=== PATIENT | female | born 1940 | race Caucasian/White ===

== ENCOUNTER 2018-03-21 18:10 | Inpatient (IN) | payer MEDICARE ==
--- NOTE | 2018-03-21 18:37 | ED ---
General Adult HPI - General Chief complaint: Nausea/Vomiting/Diarrhea Stated complaint: rapid heart rate Time Seen by Provider: 03/21/18 18:21 Source: patient Mode of arrival: wheelchair Limitations: no limitations - History of Present Illness Initial comments: Patient is a 77-year-old female presenting for abdominal pain and diarrhea. Daughter is bedside and states that for the last 10 days, she has had diarrhea as well as diffuse abdominal pain. However, the patient has become a little more confused and denies abdominal pain at this time. Patient also denies any fevers or chills but has had some coughing over the last 10 days. - Related Data Allergies Allergy/AdvReac Type Severity Reaction Status Date / Time Penicillins Allergy Nausea & Verified 03/21/18 18:18 Vomiting & Diarrhea Review of Systems ROS Statement: Those systems with pertinent positive or pertinent negative responses have been documented in the HPI. Constitutional: Negative for chills, and fever. Positive for fatigue HENT: Negative for congestion. Respiratory: Negative for chest tightness, shortness of breath and wheezing. Negative for cough Cardiovascular: Negative for chest pain and palpitations. Gastrointestinal: Positive for abdominal pain. Negative for abdominal distention , positive for diarrhea, nausea and vomiting. Genitourinary: Negative for dysuria. Musculoskeletal: Negative for back pain, neck pain and neck stiffness. Skin: Negative for color change. Neurological: Negative for dizziness, speech difficulty, weakness and light- headedness. Psychiatric/Behavioral: Negative for agitation and confusion. Negative for anxiety ROS Other: All systems not noted in ROS Statement are negative. Past Medical History Past Medical History: CVA/TIA, Renal Disease Additional Past Medical History / Comment(s): blind left eye, 1 kidney History of Any Multi-Drug Resistant Organisms: None Reported Past Surgical History: AICD, Back Surgery, Cholecystectomy, Pacemaker Past Psychological History: No Psychological Hx Reported Smoking Status: Current every day smoker Past Drug Use History: None Reported General Exam - General Exam Comments Initial Comments: Constitutional: Pt is oriented to person, place, and time. Pt appears well- developed and well-nourished. No distress. HENT: Head: Normocephalic and atraumatic. Eyes: EOM are normal. Neck: Normal range of motion. Neck supple. Cardiovascular: Tachycardia present, regular rhythm, S1 normal, S2 normal and normal heart sounds. Exam reveals no gallop and no friction rub. No murmur heard. Pulmonary/Chest: Effort normal and breath sounds normal. No tachypnea and no bradypnea. No respiratory distress. No wheezes or rales noted. Abdominal: Soft. Bowel sounds are normal. Pt exhibits no shifting dullness, no distension, no pulsatile liver, no fluid wave, no abdominal bruit and no ascites. There is no tenderness. There is no rigidity, no rebound, no guarding, no tenderness at McBurney's point and negative Russ's sign. Musculoskeletal: Normal range of motion. Neurological: Pt is alert and oriented to person, place, and time. No cranial nerve deficit. Skin: Skin is warm and dry. No rash noted. Pt is not diaphoretic. No erythema. No pallor. Psychiatric: Pt has a normal mood and affect. Pt behavior is normal. Thought content normal. Limitations: no limitations Course Vital Signs 03/21/18 03/21/18 03/21/18 18:14 18:27 18:30 Temperature 97.9 F Pulse Rate 130 H 118 H Respiratory 20 Rate Blood Pressure 97/65 84/60 84/60 O2 Sat by Pulse 91 L 90 L Oximetry 03/21/18 03/21/18 03/21/18 18:31 19:47 20:00 Temperature 97.6 F Pulse Rate 109 H 111 H Respiratory 20 20 Rate Blood Pressure 103/78 113/74 105/75 O2 Sat by Pulse 93 L 97 Oximetry 03/21/18 03/21/18 20:30 21:00 Temperature Pulse Rate 99 102 H Respiratory 19 20 Rate Blood Pressure 122/84 122/70 O2 Sat by Pulse 96 100 Oximetry EKG Findings - EKG Comments: EKG Findings:: EKG shows sinus tachycardia with a rate of 118, [place] interval 122, QRS duration 102, QTC 459. There are hyperacute T waves in leads V2 through V4. There is mild ST elevation in V1 and V2 but no reciprocal depressions which would indicate STEMI Medical Decision Making - Medical Decision Making Sepsis identified secondary to pneumonia. Upon arrival, 30 mL per KG bolus was initiated as well as blood cultures and lactic acid. Lactic acid was noted to not be elevated and measured at 1.8 but there was significant leukocytosis at 21.1. CT of the abdomen was also performed and showed no evidence of emergent pathology but did show renal cyst. Additionally, BUNs was elevated at 124 and creatinine was 2.47. This is unclear whether this is acute kidney injury as there are no prior records for this patient. Additionally, potassium was elevated at 5.8 with EKG changes, acute T waves, and therefore the patient was given calcium gluconate and insulin/D50. Because of the pneumonia, the patient was started on vancomycin and cefepime. Case is also discussed with nephrology on-call, , and course of treatment was agreed with. Explained all labs and diagnostic test results and that we will admit patient to hospital. Pt is agreeable to plan and case has been discussed with Dr. Gracia and they agree to accept the pt. - Lab Data Result diagrams: 03/21/18 18:45 03/21/18 18:45 Lab Results 03/21/18 03/21/18 03/21/18 Range/Units 18:45 18:45 18:45 WBC 21.1 H (3.8-10.6) k/uL RBC 3.27 L (3.80-5.40) m/uL Hgb 8.9 L (11.4-16.0) gm/dL Hct 29.7 L (34.0-46.0) % MCV 90.9 (80.0-100.0) fL MCH 27.4 (25.0-35.0) pg MCHC 30.1 L (31.0-37.0) g/dL RDW 17.5 H (11.5-15.5) % Plt Count 770 H (150-450) k/uL Neutrophils % 97 % Lymphocytes % 2 % Monocytes % 1 % Eosinophils % 0 % Basophils % 0 % Neutrophils # 20.4 H (1.3-7.7) k/uL Lymphocytes # 0.4 L (1.0-4.8) k/uL Monocytes # 0.2 (0-1.0) k/uL Eosinophils # 0.0 (0-0.7) k/uL Basophils # 0.0 (0-0.2) k/uL Hypochromasia Moderate Anisocytosis Slight PT (9.0-12.0) sec INR (<1.2) APTT (22.0-30.0) sec Sodium 134 L (137-145) mmol/L Potassium 5.8 H (3.5-5.1) mmol/L Chloride 97 L (98-107) mmol/L Carbon Dioxide 23 (22-30) mmol/L Anion Gap 14 mmol/L BUN 124 H* (7-17) mg/dL Creatinine 2.47 H (0.52-1.04) mg/dL Est GFR (CKD-EPI)AfAm 21 (>60 ml/min/1.73 sqM) Est GFR (CKD-EPI)NonAf 18 (>60 ml/min/1.73 sqM) Glucose 141 H (74-99) mg/dL Plasma Lactic Acid Jonatan 1.8 (0.7-2.0) mmol/L Calcium 10.2 (8.4-10.2) mg/dL Total Bilirubin 0.4 (0.2-1.3) mg/dL AST 18 (14-36) U/L ALT 22 (9-52) U/L Alkaline Phosphatase 116 (38-126) U/L Troponin I (0.000-0.034) ng/mL Total Protein 6.6 (6.3-8.2) g/dL Albumin 3.5 (3.5-5.0) g/dL Influenza Type A RNA (Not Detectd) Influenza Type B (PCR) (Not Detectd) 03/21/18 03/21/18 03/21/18 Range/Units 18:45 18:45 18:45 WBC (3.8-10.6) k/uL RBC (3.80-5.40) m/uL Hgb (11.4-16.0) gm/dL Hct (34.0-46.0) % MCV (80.0-100.0) fL MCH (25.0-35.0) pg MCHC (31.0-37.0) g/dL RDW (11.5-15.5) % Plt Count (150-450) k/uL Neutrophils % % Lymphocytes % % Monocytes % % Eosinophils % % Basophils % % Neutrophils # (1.3-7.7) k/uL Lymphocytes # (1.0-4.8) k/uL Monocytes # (0-1.0) k/uL Eosinophils # (0-0.7) k/uL Basophils # (0-0.2) k/uL Hypochromasia Anisocytosis PT 10.0 (9.0-12.0) sec INR 1.0 (<1.2) APTT 22.0 (22.0-30.0) sec Sodium (137-145) mmol/L Potassium (3.5-5.1) mmol/L Chloride (98-107) mmol/L Carbon Dioxide (22-30) mmol/L Anion Gap mmol/L BUN (7-17) mg/dL Creatinine (0.52-1.04) mg/dL Est GFR (CKD-EPI)AfAm (>60 ml/min/1.73 sqM) Est GFR (CKD-EPI)NonAf (>60 ml/min/1.73 sqM) Glucose (74-99) mg/dL Plasma Lactic Acid Jonatan (0.7-2.0) mmol/L Calcium (8.4-10.2) mg/dL Total Bilirubin (0.2-1.3) mg/dL AST (14-36) U/L ALT (9-52) U/L Alkaline Phosphatase (38-126) U/L Troponin I 0.026 (0.000-0.034) ng/mL Total Protein (6.3-8.2) g/dL Albumin (3.5-5.0) g/dL Influenza Type A RNA Not Detected (Not Detectd) Influenza Type B (PCR) Not Detected (Not Detectd) Disposition Clinical Impression: Sepsis, Pneumonia, Elevated BUN, Hyperkalemia Disposition: ADMITTED IP TO THIS [facility] Condition: Fair Referrals: Nonstaff,Physician [REFERRING] - 1-2 days Decision to Admit Reason: Admit from EC Decision Date: 03/21/18 Decision Time: 21:33
[2018-03-21] MEDS: SODIUM CHLORIDE 0.9% 1,000 ML IV SCH (18:49)
[2018-03-21] MEDS: SODIUM CHLORIDE 0.9% 500 ML 500 ML IV SCH ×2 (18:49→20:13)
[2018-03-21 19:26] LABS: Anisocytosis Slight; Basophils % (A) 0 %; Eosinophils % (A) 0 %; HCT 29.7 % (34.0-46.0); HGB 8.9 gm/dL (11.4-16.0); Hypochromasia Moderate; Lymphocytes # (A) 0.4 k/uL (1.0-4.8); Lymphocytes % (A) 2 %; MCH 27.4 pg (25.0-35.0); MCHC 30.1 g/dL (31.0-37.0); MCV 90.9 fL (80.0-100.0); Mean Platelet Volume 7.1; Monocytes # (A) 0.2 k/uL (0-1.0); Monocytes % (A) 1 %; Neutrophils # (A) 20.4 k/uL (1.3-7.7); Neutrophils % (A) 97 %; Platelet Count 770 k/uL (150-450); RBC 3.27 m/uL (3.80-5.40); RDW 17.5 % (11.5-15.5); WBC 21.1 k/uL (3.8-10.6)
--- NOTE | 2018-03-21 19:27 | CT ---
EXAMINATION TYPE: CT abdomen pelvis wo con DATE OF EXAM: 03/21/2018 COMPARISON: None HISTORY: Patient poor historian abdominal pain CT DLP: 233.8 mGycm Automated exposure control for dose reduction was used. TECHNIQUE: Helical acquisition of images was performed from the lung bases through the pelvis. FINDINGS: There is some patchy reticular nodular infiltrate in the lower lobes and more on the right side. Hear t size is normal. There is no pericardial effusion. Liver shows no focal defect. Spleen has normal size. There is no sign of a pancreatic mass. There is no adrenal mass. There are multiple bilateral renal cortical cysts that measure up to 2.5 cm. There i s no hydronephrosis. Abdominal aorta is atheromatous. I see no mesenteric adenopathy. Bladder distend s smoothly. There is no intestinal wall thickening. There are no dilated loops. There is no sign of a scites. Lumbar spine is intact. Bony pelvis appears intact. There is no inguinal hernia. There is hys terectomy. There is 1.7 cm rounded high density area on the anterior left kidney that is probably cys t that contains calcium. There is 2 mm calcification upper pole right kidney. Appendix is not seen. T here is no sign of appendicitis. There is no sign of free air. IMPRESSION: RENAL CYSTS. LESION ON THE ANTERIOR LEFT KIDNEY IS PROBABLY ATYPICAL CYST THAT CONTAINS CALCIUM. NONO BSTRUCTING SMALL RIGHT RENAL CALCULUS. ATHEROSCLEROTIC VASCULAR DISEASE. PATCHY NODULAR INFILTRATE IN THE LOWER LUNG FINN CONSISTENT WITH INFLAMMATORY DISEASE. NO PULMONARY MASS. RIGHT KIDNEY IS SMALL WITH SOME CORTICAL DEFORMITY THAT COULD RELATE TO CHRONIC PYELONEPHRITIS.
[2018-03-21 19:29] LABS: Albumin 3.5 g/dL (3.5-5.0); Calcium 10.2 mg/dL (8.4-10.2); Total Bilirubin 0.4 mg/dL (0.2-1.3); Total Protein 6.6 g/dL (6.3-8.2)
--- NOTE | 2018-03-21 19:31 | XR ---
EXAMINATION TYPE: XR chest 2V DATE OF EXAM: 03/21/2018 COMPARISON: NONE HISTORY: Increased heart rate TECHNIQUE: Frontal and lateral views of the chest are obtained. FINDINGS: There is no heart failure nor confluent pneumonic infiltrate. There is some interstitial i nfiltrate at the right lung base. Costophrenic angles are clear. There is pulmonary hyperinflation an d flattening of the diaphragm. There is left axillary pacemaker with the lead tips in the right ventr icle. There is no pleural effusion. There is osteopenia. IMPRESSION: Right lower lobe pulmonary interstitial infiltrate. No parenchymal consolidation or heart failure.
[2018-03-21] MEDS ORDERED: VANCOMYCIN IV PER PHARMACY 1 EACH MISC MISCELLANE PRN (19:34)
[2018-03-21 19:41] LABS: Potassium 5.8 mmol/L (3.5-5.1)
[2018-03-21] MEDS ORDERED: VANCOMYCIN 750 MG in SODIUM CHLORIDE 0.9% 250 ML IVPB STA (19:42)
[2018-03-21] MEDS: CEFEPIME 1 GM in SODIUM CHLORIDE 0.9% 50 ML IVPB SCH (20:14)
[2018-03-21] MEDS ORDERED: CALCIUM GLUCONATE 1,000 MG in SODIUM CHLORIDE 0.9% 100 ML IVPB ONE (20:50)
[2018-03-21] MEDS ORDERED: INSULIN REGULAR 100 UNIT/ML VIAL IV ONE (20:51)
[2018-03-21] MEDS ORDERED: DEXTROSE 50%-WATER 50 ML SYRINGE IVP STA (20:51)
[2018-03-21] MEDS ORDERED: ALBUTEROL NEBULIZED 2.5 MG/3 ML INHALATION PRN (21:27)
[2018-03-21] MEDS ORDERED: PNEUMONIA PROTOCOL UTILIZED 1 EACH MISC PO PRN (21:27)
[2018-03-21] MEDS ORDERED: SODIUM CHLORIDE 0.9% 500 ML 500 ML IV ONE (21:34)
[2018-03-21] MEDS ORDERED: LEVOFLOXACIN 500MG-D5W PMX 500 MG in DEXTROSE/WATER 1 100ML.BAG IVPB STA (21:38)
[2018-03-22 00:55] LABS: Appearance,Urine Clear (Clear); Bilirubin,Urine Negative (Negative); Blood,Urine Negative (Negative); Color,Urine Light Yellow; Glucose,Urine (UA) Trace (Negative); Ketones,Urine Negative (Negative); Leukocyte Esterase,Urine Negative (Negative); Nitrite,Urine Negative (Negative); Protein,Urine Negative (Negative); Specific Gravity,Urine 1.015 (1.001-1.035); Urobilinogen,Urine <2.0 mg/dL (<2.0)
[2018-03-22] MEDS: CARVEDILOL 12.5 MG TAB PO SCH ×3 (01:13→22:31)
[2018-03-22] MEDS: clonazePAM 0.5 MG TAB PO PRN ×2 (01:13→09:30)
[2018-03-22] MEDS: traMADol 50 MG TAB PO PRN (02:51)
[2018-03-22 06:43] LABS: Glucose,Whole Blood 106 mg/dL (75-99)
[2018-03-22] MEDS ORDERED: SERTRALINE 25 MG TAB PO SCH (09:00)
--- NOTE | 2018-03-22 09:24 | XR ---
EXAMINATION TYPE: XR chest 1V portable DATE OF EXAM: 03/22/2018 COMPARISON: Prior chest x-ray and chest CT 03/21/2018 HISTORY: Pneumonia TECHNIQUE: Single frontal view of the chest is obtained. FINDINGS: Patient is rotated. Defibrillator is present in the left pectoral region, there are leads in the right atrium, right ventricle, coronary sinus. Prominent lung volumes compatible with underlyi ng COPD. Cardiac mediastinal silhouette, pulmonary vascularity and edelmira are stable. No evident pneumo thorax or pleural effusion. There are overlying artifacts. Interstitium is mildly increased, persiste nt density right lung base, abnormal density left lung base may be obscured due to technique. IMPRESSION: Correlate for right lower lobe pneumonia. Follow-up recommended.
[2018-03-22] MEDS: CEFEPIME 1 GM in SODIUM CHLORIDE 0.9% 50 ML IVPB SCH (09:25)
[2018-03-22] MEDS: ASPIRIN 81 MG PO SCH (09:26)
[2018-03-22] MEDS: CLOPIDOGREL 75 MG TAB PO SCH (09:26)
[2018-03-22 11:32] LABS: Calcium 9.3 mg/dL (8.4-10.2); Potassium 5.2 mmol/L (3.5-5.1)
[2018-03-22] MEDS ORDERED: INFLUENZA VACCINE (6 MOS+) 60 MCG/0.5 ML SYRINGE IM ONE (13:53)
--- NOTE | 2018-03-22 14:53 | P.HPIM ---
History of Present Illness 77-year-old female presenting for abdominal pain and diarrhea. Daughter is bedside and states that for the last 10 days, she has had diarrhea as well as diffuse abdominal pain. However, the patient has become a little more confused and denies abdominal pain at this time. Patient also denies any fevers or chills but has had some coughing over the last 10 days, chest x-ray was done which is suspicious for right lower lobe infiltrate I reviewed the chest x-ray not impressive for right lower lobe infiltrate with the patient is on cefepime which will be continued for now patient does have leukocytosis tachycardia acute renal failure with the creatinine going up to 2.5 now around 1.8 with IV fluids. Which will be continued. I do not believe patient will need vancomycin that will be discontinued. Cultures were obtained. Patient has leukocytosis of 20,000 tachycardia improved. Patient denied any significant abdominal pain Review of Systems REVIEW OF SYSTEMS: CONSTITUTIONAL: No fever, no malaise, no fatigue. HEENT: No recent visual problems or hearing problems. Denied any sore throat. CARDIOVASCULAR: No chest pain, orthopnea, PND, no palpitations, no syncope. PULMONARY: No shortness of breath, no cough, no hemoptysis. GASTROINTESTINAL: As mentioned in HPI NEUROLOGICAL: No headaches, no weakness, no numbness. HEMATOLOGICAL: Denies any bleeding or petechiae. GENITOURINARY: Denies any burning micturition, frequency, or urgency. MUSCULOSKELETAL/RHEUMATOLOGICAL: Denies any joint pain, swelling, or any muscle pain. ENDOCRINE: Denies any polyuria or polydipsia. The rest of the 14-point review of systems is negative. Past Medical History Past Medical History: CVA/TIA, Eye Disorder, Hearing Disorder / Deafness, Hyperlipidemia, Hypertension, Osteoarthritis (OA), Renal Disease Additional Past Medical History / Comment(s): CVA with blindness left eye, Pt states she has renal disease-L kidney is nonfunctioning and R kidney functions at about 80% and has been stented/ sees reexaminer every 6 months, irregular heart beat, "bottom of my heart doesn't work well"-pt has AICD/pacer, gout bilateral feet, arthritis bilateral hands and legs, COUNCIL bilaterally, weight loss of about 15 pounds recently. History of Any Multi-Drug Resistant Organisms: None Reported Past Surgical History: AICD, Appendectomy, Back Surgery, Cholecystectomy, Heart Catheterization, Pacemaker Additional Past Surgical History / Comment(s): AICD/pacer, low back surgery, R kidney stented, colonoscopies/benign polypectomy, R eye cataract laser surgery, Past Anesthesia/Blood Transfusion Reactions: No Reported Reaction Additional Past Anesthesia/Blood Transfusion Reaction / Comment(s): Pt states she has received blood before without reaction. Type of Cardiac Device: Permanent Pacemaker, AICD Device Placement Date:: 2015 Smoking Status: Current every day smoker - Past Family History Father History Unknown: Yes Mother Family Medical History: Cancer Additional Family Medical History / Comment(s): Mother had colon cancer. Sghe at the age of 82 yrs. Medications and Allergies Home Medications Medication Instructions Recorded Confirmed Type Aspirin [Adult Low Dose Aspirin EC] 81 mg PO DAILY 03/21/18 03/22/18 History Carvedilol [Coreg] 25 mg PO BID 03/21/18 03/22/18 History Clopidogrel [Plavix] 75 mg PO DAILY 03/21/18 03/22/18 History Sertraline [Zoloft] 25 mg PO DAILY 03/21/18 03/22/18 History Simvastatin 40 mg PO HS 03/21/18 03/22/18 History clonazePAM [KlonoPIN] 0.5 mg PO Q8H PRN 03/21/18 03/22/18 History traMADol HCl [Ultram] 50 mg PO Q6HR PRN 03/21/18 03/22/18 History Allopurinol [Zyloprim] 100 mg PO DAILY 03/22/18 03/22/18 History Spironolactone-Hctz 25-25Mg 1 tab PO DAILY 03/22/18 03/22/18 History [Aldactazide 25-25Mg] predniSONE 20 mg PO DAILY 03/22/18 03/22/18 History Allergies Allergy/AdvReac Type Severity Reaction Status Date / Time Penicillins Allergy Nausea & Verified 03/22/18 09:38 Vomiting & Diarrhea Physical Exam Vitals: Vital Signs Temp Pulse Pulse Resp BP BP Pulse Ox 03/22/18 13:00 85 24 98/67 90 L 03/22/18 12:00 97.5 F L 80 40 H 135/78 95 03/22/18 11:00 81 21 111/68 90 L 03/22/18 10:00 84 20 111/68 96 03/22/18 09:00 98.1 F 74 21 111/68 88 L 03/22/18 06:49 97.7 F 92 19 111/68 99 03/22/18 06:00 97.8 F 93 18 100/61 93 L 03/22/18 05:00 87 16 109/68 94 L 03/22/18 04:30 96 18 107/61 97 03/22/18 04:00 97.8 F 87 18 96/69 97 03/22/18 02:30 98 19 105/60 97 03/22/18 02:00 97.8 F 106 H 18 105/60 97 03/22/18 01:30 114 H 18 97 03/22/18 01:00 114 H 18 109/70 95 03/22/18 00:30 114 H 103/67 98 03/22/18 00:00 120 H 18 112/64 98 03/21/18 23:30 114 H 20 124/71 95 03/21/18 23:00 97.8 F 113 H 18 108/76 100 03/21/18 22:30 108 H 20 102/70 03/21/18 22:00 130 H 19 156/91 95 03/21/18 21:30 135 H 20 131/82 96 03/21/18 21:00 102 H 20 122/70 100 03/21/18 20:30 99 19 122/84 96 03/21/18 20:00 111 H 20 105/75 97 03/21/18 19:47 97.6 F 109 H 20 113/74 93 L 03/21/18 18:31 103/78 03/21/18 18:30 118 H 84/60 03/21/18 18:27 84/60 90 L 03/21/18 18:14 97.9 F 130 H 20 97/65 91 L Intake and Output 03/21/18 03/22/18 03/22/18 22:59 06:59 14:59 Intake Total 75 Balance 75 Intake: IV 75 Sodium Chloride 0.9% 1, 75 000 ml @ 75 mls/hr IV . [id number] [facility] Rx#:[id number] Other: Weight 37.195 kg 39.2 kg 39.2 kg PHYSICAL EXAMINATION: GENERAL: The patient is alert and oriented x3, not in any acute distress. Well developed, well nourished. HEENT: Pupils are round and equally reacting to light. EOMI. No scleral icterus. No conjunctival pallor. Normocephalic, atraumatic. No pharyngeal erythema. No thyromegaly. CARDIOVASCULAR: S1 and S2 present. No murmurs, rubs, or gallops. PULMONARY: Chest is clear to auscultation, no wheezing or crackles. ABDOMEN: Soft, nontender, nondistended, normoactive bowel sounds. No palpable organomegaly. MUSCULOSKELETAL: No joint swelling or deformity. EXTREMITIES: No cyanosis, clubbing, or pedal edema. NEUROLOGICAL: Gross neurological examination did not reveal any focal deficits. SKIN: No rashes. Results CBC & Chem 7: 03/21/18 18:45 03/22/18 10:30 Labs: Abnormal Lab Results - Last 24 Hours (Table) 03/21/18 03/21/18 03/22/18 Range/Units 18:45 18:45 00:39 WBC 21.1 H (3.8-10.6) k/uL RBC 3.27 L (3.80-5.40) m/uL Hgb 8.9 L (11.4-16.0) gm/dL Hct 29.7 L (34.0-46.0) % MCHC 30.1 L (31.0-37.0) g/dL RDW 17.5 H (11.5-15.5) % Plt Count 770 H (150-450) k/uL Neutrophils # 20.4 H (1.3-7.7) k/uL Lymphocytes # 0.4 L (1.0-4.8) k/uL Sodium 134 L (137-145) mmol/L Potassium 5.8 H (3.5-5.1) mmol/L Chloride 97 L (98-107) mmol/L BUN 124 H* (7-17) mg/dL Creatinine 2.47 H (0.52-1.04) mg/dL Glucose 141 H (74-99) mg/dL POC Glucose (mg/dL) (75-99) mg/dL Urine Glucose (UA) Trace H (Negative) 03/22/18 03/22/18 Range/Units 06:31 10:30 WBC (3.8-10.6) k/uL RBC (3.80-5.40) m/uL Hgb (11.4-16.0) gm/dL Hct (34.0-46.0) % MCHC (31.0-37.0) g/dL RDW (11.5-15.5) % Plt Count (150-450) k/uL Neutrophils # (1.3-7.7) k/uL Lymphocytes # (1.0-4.8) k/uL Sodium (137-145) mmol/L Potassium 5.2 H (3.5-5.1) mmol/L Chloride 109 H (98-107) mmol/L BUN 92 H (7-17) mg/dL Creatinine 1.68 H (0.52-1.04) mg/dL Glucose 103 H (74-99) mg/dL POC Glucose (mg/dL) 106 H (75-99) mg/dL Urine Glucose (UA) (Negative) Microbiology - Last 24 Hours (Table) 03/22/18 00:39 Urine Culture - Preliminary Urine,Voided Thrombosis Risk Factor Assmnt - Choose All That Apply Any of the Below Risk Factors Present?: Yes Each Factor Represents 1 point: Sepsis (< 1month), Serious lung disease incl. pneumonia (< 1month) Other Risk Factors: Yes Each Risk Factor Represents 3 Points: Age 75 years or older Other congenital or acquired thrombophilia - If yes, enter type in comment: No Thrombosis Risk Factor Assessment Total Risk Factor Score: 5 Thrombosis Risk Factor Assessment Level: High Risk Assessment and Plan Plan: -Systemic inflammatory response syndrome or sepsis: Probably secondary to viral gastroenteritis mostly will obtain C. diff testing patient had 2 episodes of diarrhea today. My suspicion is low for pneumonia for now we will can you with antibiotics. Continue with IV fluids -Acute renal failure prerenal azotemia and possibility of acute tubular necrosis nonoliguric from sepsis, intravascularly depletion continue with IV fluids -Leukocytosis due to assessment #1 -Hyperkalemia: Secondary to acute renal failure, Aldactone and hydrochlorothiazide is being held -Hyponatremia hypervolemic hyponatremia expected to improve with IV fluids -Hyperlipidemia -Hypertension
[2018-03-22] MEDS ORDERED: VANCOMYCIN 750 MG in SODIUM CHLORIDE 0.9% 250 ML IVPB ONE (16:00)
[2018-03-22] MEDS: SODIUM CHLORIDE 0.9% 1,000 ML IV SCH ×2 (16:05→22:31)
--- NOTE | 2018-03-22 18:03 | CONS ---
CONSULTATION REASON FOR CONSULT: Renal failure. HISTORY OF PRESENT ILLNESS: Patient is a 77-year-old female who has a history of chronic kidney disease and follows with a carpenter supervisor out of [place]. She is not sure as to her baseline renal function. Patient was admitted to the hospital with complaints of nausea, vomiting and diarrhea. This had been going on for about one week prior to his admission. Patient also had abdominal pain. She had some mental status changes as well. Currently patient states she is feeling better. She is not having that much diarrhea. She is also maintained on IV fluids. Serum creatinine was 2.47 mg/dL on admission. It is now down to 1.68. Serum potassium was 5.8 and is now at 5.2 mEq/L. At home patient was not on any NSAIDs or angiotensin receptor blockers. She was, however, on spironolactone. PAST MEDICAL HISTORY: Significant for chronic kidney disease with solitary functioning kidney, history of CVA/TIA. PAST SURGICAL HISTORY: 1. AICD placement. 2. Back surgery. 3. Cholecystectomy. SOCIAL HISTORY: Positive for smoking. No history of drug abuse or alcohol abuse. MEDICATIONS: Medications prior to admission included: 1. Ultram. 2. Prednisone. 3. Klonopin. 4. Aldactazide. 5. Simvastatin. 6. Zoloft. 7. Plavix. 8. Coreg. 9. Zyloprim. 10.Aspirin. REVIEW OF SYSTEMS: As per HPI. Other systems negative. PHYSICAL EXAMINATION: Patient is comfortable. Blood pressure 135/78, heart rate 80 per minute. She is afebrile. EXAMINATION OF THE HEART: S1, S2. EXAMINATION OF LUNGS: Bilateral breath sounds are heard. ABDOMEN: Soft, non-tender. Examination of lower extremities shows no significant edema. 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 Labs show sodium 139, potassium 5.2, chloride 109, BUN 92, serum creatinine 1.68, hemoglobin 8.9 g/dL. UA is fairly benign with no evidence of proteinuria or hematuria. ASSESSMENT: 1. Acute kidney injury, prerenal, currently improving with IV hydration. Continue with IV fluids. 2. Hyperkalemia associated with acute kidney injury and use of Aldactone prior to admission, currently improved. 3. Nausea, vomiting, diarrhea; seem to be improving, most likely related to gastroenteritis. 4. History of hypertension, currently controlled. 5. Chronic kidney disease, possibly stage III; baseline creatinine not known. Etiology is nephrosclerosis with a solitary functioning kidney. CT scan also shows a high density area on the left kidney that looks like an atypical cyst. The CT scan does state that the patient's right kidney is small. The size is not mentioned. PLAN: Continue with IV fluids. Maintain followup with Nephrology as outpatient. Hold off on Aldactone for now. Repeat labs in a.m. Check for Clostridium difficile if patient continues to have diarrhea. Thank you for this consultation. Will continue to follow the patient with you during her hospitalization. I would also avoid continued dosing of vancomycin, given her renal failure. MMODL / IJN: [id number] /
[2018-03-22] MEDS: SYMBICORT 160-4.5 MCG INHALER INHALATION SCH (19:18)
[2018-03-22] MEDS: DOXYCYCLINE 100 MG CAP PO SCH (22:31)
[2018-03-22] MEDS: ATORVASTATIN 20 MG TAB PO SCH (22:31)
[2018-03-23] MEDS: traMADol 50 MG TAB PO PRN ×3 (00:32→17:57)
[2018-03-23 06:34] LABS: Anisocytosis Slight; Basophils % (A) 0 %; Eosinophils # (A) 0.2 k/uL (0-0.7); Eosinophils % (A) 1 %; HGB 7.5 gm/dL (11.4-16.0); Hypochromasia Marked; Lymphocytes # (A) 0.5 k/uL (1.0-4.8); Lymphocytes % (A) 5 %; MCH 27.7 pg (25.0-35.0); MCV 95.4 fL (80.0-100.0); Mean Platelet Volume 7.4; Monocytes # (A) 0.5 k/uL (0-1.0); Monocytes % (A) 4 %; Neutrophils # (A) 10.5 k/uL (1.3-7.7); Neutrophils % (A) 89 %; Platelet Count 587 k/uL (150-450); RBC 2.72 m/uL (3.80-5.40); RDW 17.2 % (11.5-15.5); WBC 11.9 k/uL (3.8-10.6)
[2018-03-23 06:43] LABS: Calcium 9.1 mg/dL (8.4-10.2); Magnesium 1.6 mg/dL (1.6-2.3); Potassium 5.1 mmol/L (3.5-5.1)
[2018-03-23 06:49] LABS: Vancomycin,Random 13.6 ug/mL
[2018-03-23] MEDS: SYMBICORT 160-4.5 MCG INHALER INHALATION SCH ×2 (07:50→20:29)
[2018-03-23] MEDS: CEFEPIME 1 GM in SODIUM CHLORIDE 0.9% 50 ML IVPB SCH (08:38)
[2018-03-23] MEDS: CARVEDILOL 12.5 MG TAB PO SCH ×2 (08:40→20:26)
[2018-03-23] MEDS: CLOPIDOGREL 75 MG TAB PO SCH (08:41)
[2018-03-23] MEDS: ASPIRIN 81 MG PO SCH (08:42)
[2018-03-23] MEDS: DOXYCYCLINE 100 MG CAP PO SCH ×2 (08:55→20:26)
[2018-03-23] MEDS: ALLOPURINOL 100 MG TAB PO SCH (09:21)
[2018-03-23] MEDS: SERTRALINE 25 MG TAB PO SCH (09:21)
[2018-03-23] MEDS: SODIUM CHLORIDE 0.9% 1,000 ML IV SCH (10:26)
--- NOTE | 2018-03-23 12:21 | P.PN ---
Subjective Patient is seen in follow-up for acute kidney injury on chronic kidney disease. Renal function is improving with creatinine down to 1.25 today. Patient follows with health care facility administrator out of [facility]. 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 She is noted to have atrophic right kidney. Diarrhea has improved. Continues to have a cough. Denies chest pain or shortness of breath. Vital signs are stable. General: The patient appeared well nourished and normally developed. HEENT: Head exam is unremarkable. Neck is without jugular venous distension. LUNGS: Lungs are clear to auscultation and percussion. Breath sounds decreased. HEART: Rate and Rhythm are regular. First and second heart sounds normal. No murmurs, rubs or gallops. ABDOMEN: Abdominal exam reveals normal bowel sounds. Non-tender and non- distended. No evidence of peritonitis. EXTREMITITES: No clubbing, cyanosis, or edema. Objective - Vital Signs Vital signs: Vital Signs Temp 98.2 F 03/23/18 10:00 Pulse 105 H 03/23/18 10:00 Resp 20 03/23/18 10:00 BP 100/56 03/23/18 10:00 Pulse Ox 93 L 03/23/18 10:00 Intake & Output 03/22/18 03/23/18 03/23/18 18:59 06:59 18:59 Intake Total 300 07 2814 Output Total 700 250 0 Balance -100 -175 1000 Weight 39.2 kg 41.9 kg Intake: IV 600 75 600 Sodium Chloride 0.9% 1, 600 75 600 000 ml @ 75 mls/hr IV . [id number] [facility] Rx#:[id number] Oral 400 Output: Urine 700 250 0 - Labs CBC & Chem 7: 03/23/18 05:59 03/23/18 05:59 Labs: Abnormal Lab Results - Last 24 Hours (Table) 03/23/18 03/23/18 Range/Units 05:59 05:59 WBC 11.9 H (3.8-10.6) k/uL RBC 2.72 L (3.80-5.40) m/uL Hgb 7.5 L (11.4-16.0) gm/dL Hct 26.0 L (34.0-46.0) % MCHC 29.0 L (31.0-37.0) g/dL RDW 17.2 H (11.5-15.5) % Plt Count 587 H (150-450) k/uL Neutrophils # 10.5 H (1.3-7.7) k/uL Lymphocytes # 0.5 L (1.0-4.8) k/uL Chloride 111 H (98-107) mmol/L BUN 59 H (7-17) mg/dL Creatinine 1.25 H (0.52-1.04) mg/dL Microbiology - Last 24 Hours (Table) 03/21/18 20:27 Blood Culture - Preliminary Blood No Growth after 24 hours 03/21/18 18:45 Blood Culture - Preliminary Blood No Growth after 24 hours 03/22/18 00:39 Urine Culture - Preliminary Urine,Voided Assessment and Plan Plan: Assessment: 1. Nonoliguric acute kidney injury mostly prerenal secondary to intravascular volume depletion from diarrhea. Improving. Creatinine down to 1.25 today. 2. Hyperkalemia secondary to acute kidney injury and Aldactone. Improved. 3. Chronic kidney disease stage III secondary to solitary functioning left kidney. Unknown baseline creatinine. Patient follows with health care facility administrator out of [place]. 4. Nausea and vomiting along with diarrhea likely related to viral gastroenteritis. Improved. 5. Atypical cyst noted on the left kidney. This will need to be monitored as an outpatient. 6. Hypertension with chronic kidney disease. Controlled. 7. Pneumonia maintained on antibiotics. 8. Anemia of chronic kidney disease. Rule out iron deficiency. Plan: Continue normal saline at 75 mL an hour. Avoid nephrotoxins. Continue to hold diuretics for now. Check iron studies. Add Aranesp.
[2018-03-23] MEDS: IPRATROPIUM-ALBUTEROL 3 ML NEB INHALATION PRN (12:40)
[2018-03-23] MEDS: DARBEPOETIN ALFA 40 MCG/0.4 ML SYRINGE SQ SCH (14:16)
--- NOTE | 2018-03-23 15:37 | P.PN ---
Subjective Patient is being treated for gastroenteritis mostly the possibility of right lower lobe pneumonia for which patient is on cefepime. Patient acute renal failure is improving continue with IV fluids. Constitutional: Denied any fatigue denied any fever. Cardio vascular: denied any chest pain, palpitations Gastrointestinal denied any nausea vomiting Pulmonary: Denied any shortness of breath cough Neurologic denied any new focal deficits Objective - Vital Signs Vital signs: Vital Signs Temp 98.3 F 03/23/18 13:00 Pulse 108 H 03/23/18 14:00 Resp 20 03/23/18 14:00 BP 119/62 03/23/18 14:00 Pulse Ox 93 L 03/23/18 14:00 Intake & Output 03/22/18 03/23/18 03/23/18 18:59 06:59 18:59 Intake Total 107 82 0309 Output Total 700 250 0 Balance -100 -175 1240 Weight 39.2 kg 41.9 kg Intake: IV 600 75 600 Sodium Chloride 0.9% 1, 600 75 600 000 ml @ 75 mls/hr IV . [id number] [facility] Rx#:[id number] Oral 640 Output: Urine 700 250 0 - Exam PHYSICAL EXAMINATION: GENERAL: The patient is alert and oriented x3, not in any acute distress. Well developed, well nourished. HEENT: Pupils are round and equally reacting to light. EOMI. No scleral icterus. No conjunctival pallor. Normocephalic, atraumatic. No pharyngeal erythema. No thyromegaly. CARDIOVASCULAR: S1 and S2 present. No murmurs, rubs, or gallops. PULMONARY: Chest is clear to auscultation, no wheezing or crackles. ABDOMEN: Soft, nontender, nondistended, normoactive bowel sounds. No palpable organomegaly. MUSCULOSKELETAL: No joint swelling or deformity. EXTREMITIES: No cyanosis, clubbing, or pedal edema. NEUROLOGICAL: Gross neurological examination did not reveal any focal deficits. SKIN: No rashes. - Labs CBC & Chem 7: 03/23/18 05:59 03/23/18 05:59 Labs: Abnormal Lab Results - Last 24 Hours (Table) 03/23/18 03/23/18 Range/Units 05:59 05:59 WBC 11.9 H (3.8-10.6) k/uL RBC 2.72 L (3.80-5.40) m/uL Hgb 7.5 L (11.4-16.0) gm/dL Hct 26.0 L (34.0-46.0) % MCHC 29.0 L (31.0-37.0) g/dL RDW 17.2 H (11.5-15.5) % Plt Count 587 H (150-450) k/uL Neutrophils # 10.5 H (1.3-7.7) k/uL Lymphocytes # 0.5 L (1.0-4.8) k/uL Chloride 111 H (98-107) mmol/L BUN 59 H (7-17) mg/dL Creatinine 1.25 H (0.52-1.04) mg/dL Microbiology - Last 24 Hours (Table) 03/22/18 00:39 Urine Culture - Final Urine,Voided 03/21/18 20:27 Blood Culture - Preliminary Blood No Growth after 24 hours 03/21/18 18:45 Blood Culture - Preliminary Blood No Growth after 24 hours Assessment and Plan Plan: -Systemic inflammatory response syndrome or sepsis: Probably secondary to viral gastroenteritis mostly C. diff negative diarrhea resolved My suspicion is low for pneumonia for now we will can you with antibiotics. Continue with IV fluids -Acute renal failure prerenal azotemia and possibility of acute tubular necrosis nonoliguric from sepsis, intravascularly depletion continue with IV fluids Acute renal failure is improving at this time -Leukocytosis due to assessment #1 -Hyperkalemia: Secondary to acute renal failure, Aldactone and hydrochlorothiazide is being held -Hyponatremia hypervolemic hyponatremia expected to improve with IV fluids -Hyperlipidemia -Hypertension
[2018-03-23 19:17] LABS: Iron Saturation 3.32 (12.00-45.00)
[2018-03-23] MEDS: ATORVASTATIN 20 MG TAB PO SCH (20:26)
[2018-03-24] MEDS: SODIUM CHLORIDE 0.9% 1,000 ML IV SCH ×2 (00:06→17:53)
[2018-03-24] MEDS: traMADol 50 MG TAB PO PRN ×3 (00:06→17:52)
[2018-03-24 06:47] LABS: Calcium 8.5 mg/dL (8.4-10.2); Magnesium 1.2 mg/dL (1.6-2.3); Potassium 4.6 mmol/L (3.5-5.1)
[2018-03-24] MEDS ORDERED: Magnesium Replacement Protocol 1 EACH MISC MISCELLANE PRN (06:50)
[2018-03-24 06:59] LABS: Anisocytosis Slight; HCT 22.2 % (34.0-46.0); Hypochromasia Marked; MCHC 29.1 g/dL (31.0-37.0); MCV 95.9 fL (80.0-100.0); Macrocytosis Slight; Mean Platelet Volume 7.1; Platelet Count 519 k/uL (150-450); RBC 2.32 m/uL (3.80-5.40); RDW 17.4 % (11.5-15.5); WBC 12.2 k/uL (3.8-10.6)
[2018-03-24 07:16] LABS: HGB 6.5 gm/dL (11.4-16.0)
[2018-03-24 08:25] LABS: Anisocytosis Slight; HCT 24.2 % (34.0-46.0); Hypochromasia Marked; MCH 27.9 pg (25.0-35.0); MCHC 29.2 g/dL (31.0-37.0); MCV 95.7 fL (80.0-100.0); Macrocytosis Slight; Mean Platelet Volume 7.1; Platelet Count 519 k/uL (150-450); RBC 2.53 m/uL (3.80-5.40); RDW 17.3 % (11.5-15.5); WBC 13.4 k/uL (3.8-10.6)
[2018-03-24] MEDS: MAGNESIUM SULFATE-D5W PMX 1 GM in DEXTROSE/WATER 1 100ML.BAG IVPB SCH ×3 (08:27→10:57)
[2018-03-24] MEDS: ASPIRIN 81 MG PO SCH (08:28)
[2018-03-24] MEDS: CLOPIDOGREL 75 MG TAB PO SCH (08:28)
[2018-03-24] MEDS: CARVEDILOL 12.5 MG TAB PO SCH ×2 (08:28→20:32)
[2018-03-24] MEDS: ALLOPURINOL 100 MG TAB PO SCH (08:28)
[2018-03-24] MEDS: CEFEPIME 1 GM in SODIUM CHLORIDE 0.9% 50 ML IVPB SCH (09:07)
--- NOTE | 2018-03-24 10:11 | P.PN ---
Subjective Patient is seen in follow-up for acute kidney injury on chronic kidney disease. Renal function is improving with creatinine down to 0.94 today. Patient follows with engineer automated equipment out of [facility]. 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 She is noted to have atrophic right kidney. Diarrhea has improved. Continues to have a cough. Denies chest pain or shortness of breath. Hemoglobin was 6.5 this morning at 5 AM and repeat was 7.0 at 8 AM. Patient denies any active bleeding. Vital signs are stable. General: The patient appeared well nourished and normally developed. HEENT: Head exam is unremarkable. Neck is without jugular venous distension. LUNGS: Lungs are clear to auscultation and percussion. Breath sounds decreased. HEART: Rate and Rhythm are regular. First and second heart sounds normal. No murmurs, rubs or gallops. ABDOMEN: Abdominal exam reveals normal bowel sounds. Non-tender and non- distended. No evidence of peritonitis. EXTREMITITES: No clubbing, cyanosis, or edema. Objective - Vital Signs Vital signs: Vital Signs Temp 98.1 F 03/24/18 08:00 Pulse 113 H 03/24/18 08:00 Resp 21 03/24/18 08:00 BP 111/76 03/24/18 08:00 Pulse Ox 90 L 03/24/18 08:00 Intake & Output 03/23/18 03/24/18 03/24/18 18:59 06:59 18:59 Intake Total 1840 75 275 Output Total 1780 250 Balance 60 75 25 Weight 43.3 kg 43.3 kg Intake: IV 1200 75 75 Sodium Chloride 0.9% 1, 1200 75 75 000 ml @ 75 mls/hr IV . [id number] [facility] Rx#:[id number] Oral 640 200 Output: Urine 1780 250 Other: Voiding Method Toilet # Voids 1 - Labs CBC & Chem 7: 03/24/18 07:59 03/24/18 05:20 Labs: Abnormal Lab Results - Last 24 Hours (Table) 03/23/18 03/24/18 03/24/18 Range/Units 05:59 05:20 05:20 WBC 12.2 H (3.8-10.6) k/uL RBC 2.32 L (3.80-5.40) m/uL Hgb 6.5 L* (11.4-16.0) gm/dL Hct 22.2 L (34.0-46.0) % MCHC 29.1 L (31.0-37.0) g/dL RDW 17.4 H (11.5-15.5) % Plt Count 519 H (150-450) k/uL Chloride 110 H (98-107) mmol/L BUN 31 H (7-17) mg/dL Magnesium 1.2 L (1.6-2.3) mg/dL Iron 10 L (50-170) ug/dL Iron Saturation 3.32 L (12.00-45.00) 03/24/18 Range/Units 07:59 WBC 13.4 H (3.8-10.6) k/uL RBC 2.53 L (3.80-5.40) m/uL Hgb 7.0 L (11.4-16.0) gm/dL Hct 24.2 L (34.0-46.0) % MCHC 29.2 L (31.0-37.0) g/dL RDW 17.3 H (11.5-15.5) % Plt Count 519 H (150-450) k/uL Chloride (98-107) mmol/L BUN (7-17) mg/dL Magnesium (1.6-2.3) mg/dL Iron (50-170) ug/dL Iron Saturation (12.00-45.00) Microbiology - Last 24 Hours (Table) 03/21/18 20:27 Blood Culture - Preliminary Blood No Growth after 48 hours 03/21/18 18:45 Blood Culture - Preliminary Blood No Growth after 48 hours 03/22/18 00:39 Urine Culture - Final Urine,Voided Assessment and Plan Plan: Assessment: 1. Nonoliguric acute kidney injury mostly prerenal secondary to intravascular volume depletion from diarrhea. Improving. Creatinine down to 0.94 today. 2. Hyperkalemia secondary to acute kidney injury and Aldactone. Improved. 3. Chronic kidney disease stage III secondary to solitary functioning left kidney. Unknown baseline creatinine. Patient follows with engineer automated equipment out of [place]. 4. Nausea and vomiting along with diarrhea likely related to viral gastroenteritis. Improved. 5. Atypical cyst noted on the left kidney. This will need to be monitored as an outpatient. 6. Hypertension with chronic kidney disease. Controlled. 7. Pneumonia maintained on antibiotics. 8. Anemia of chronic kidney disease. Severe iron deficiency noted. No active bleeding noted. 9. Hypomagnesemia from poor oral intake. Status post replacement. Plan: Continue normal saline at 75 mL an hour. Avoid nephrotoxins. Continue to hold diuretics for now. Ferrlecit 125 mg IV daily for 3 days. First dose today. Maintain Aranesp. Monitor hemoglobin.
[2018-03-24] MEDS: SYMBICORT 160-4.5 MCG INHALER INHALATION SCH ×2 (10:36→20:39)
[2018-03-24] MEDS: SERTRALINE 25 MG TAB PO SCH (10:57)
[2018-03-24] MEDS: DOXYCYCLINE 100 MG CAP PO SCH (10:57)
[2018-03-24] MEDS: SODIUM FERRIC GLUCONAT-SUCROSE 125 MG in SODIUM CHLORIDE 0.9% 100 ML IVPB SCH (11:52)
--- NOTE | 2018-03-24 17:10 | P.PN ---
Subjective Patient is being treated for gastroenteritis mostly the possibility of right lower lobe pneumonia for which patient is on cefepime. Patient acute renal failure is improving continue with IV fluids. 03/24/2018 Patient is clinically doing well but saturations are low 90s and obtain a chest x-ray of there is any pulmonary edema will be treated with Lasix. Patient has wheezing on exam. Patient is only on inhalational steroids patient will be started on oral steroids for saturations are okay and up upon ambulation tomorrow patient can be discharged my suspicion is low that patient actually has pneumonia. Patient is presently on cefepime and doxycycline which will be self switched to ceftriaxone patient can be discharged on 3-5 days of Ceftin. Constitutional: Denied any fatigue denied any fever. Cardio vascular: denied any chest pain, palpitations Gastrointestinal denied any nausea vomiting Pulmonary: Denied any shortness of breath cough Neurologic denied any new focal deficits Objective - Vital Signs Vital signs: Vital Signs Temp 97.5 F L 03/24/18 12:00 Pulse 87 03/24/18 12:00 Resp 19 03/24/18 12:00 BP 100/50 03/24/18 12:00 Pulse Ox 93 L 03/24/18 12:00 Intake & Output 03/23/18 03/24/18 03/24/18 18:59 06:59 18:59 Intake Total 1840 75 275 Output Total 1780 250 Balance 60 75 25 Weight 43.3 kg 43.3 kg Intake: IV 1200 75 75 Sodium Chloride 0.9% 1, 1200 75 75 000 ml @ 75 mls/hr IV . [id number] [facility] Rx#:[id number] Oral 640 200 Output: Urine 1780 250 Other: Voiding Method Toilet # Voids 1 - Exam PHYSICAL EXAMINATION: GENERAL: The patient is alert and oriented x3, not in any acute distress. Well developed, well nourished. HEENT: Pupils are round and equally reacting to light. EOMI. No scleral icterus. No conjunctival pallor. Normocephalic, atraumatic. No pharyngeal erythema. No thyromegaly. CARDIOVASCULAR: S1 and S2 present. No murmurs, rubs, or gallops. PULMONARY: Chest is clear to auscultation, no wheezing or crackles. ABDOMEN: Soft, nontender, nondistended, normoactive bowel sounds. No palpable organomegaly. MUSCULOSKELETAL: No joint swelling or deformity. EXTREMITIES: No cyanosis, clubbing, or pedal edema. NEUROLOGICAL: Gross neurological examination did not reveal any focal deficits. SKIN: No rashes. - Labs CBC & Chem 7: 03/24/18 07:59 03/24/18 05:20 Labs: Abnormal Lab Results - Last 24 Hours (Table) 03/23/18 03/24/18 03/24/18 Range/Units 05:59 05:20 05:20 WBC 12.2 H (3.8-10.6) k/uL RBC 2.32 L (3.80-5.40) m/uL Hgb 6.5 L* (11.4-16.0) gm/dL Hct 22.2 L (34.0-46.0) % MCHC 29.1 L (31.0-37.0) g/dL RDW 17.4 H (11.5-15.5) % Plt Count 519 H (150-450) k/uL Chloride 110 H (98-107) mmol/L BUN 31 H (7-17) mg/dL Magnesium 1.2 L (1.6-2.3) mg/dL Iron 10 L (50-170) ug/dL Iron Saturation 3.32 L (12.00-45.00) 03/24/18 Range/Units 07:59 WBC 13.4 H (3.8-10.6) k/uL RBC 2.53 L (3.80-5.40) m/uL Hgb 7.0 L (11.4-16.0) gm/dL Hct 24.2 L (34.0-46.0) % MCHC 29.2 L (31.0-37.0) g/dL RDW 17.3 H (11.5-15.5) % Plt Count 519 H (150-450) k/uL Chloride (98-107) mmol/L BUN (7-17) mg/dL Magnesium (1.6-2.3) mg/dL Iron (50-170) ug/dL Iron Saturation (12.00-45.00) Microbiology - Last 24 Hours (Table) 03/21/18 20:27 Blood Culture - Preliminary Blood No Growth after 48 hours 03/21/18 18:45 Blood Culture - Preliminary Blood No Growth after 48 hours Assessment and Plan Plan: -Systemic inflammatory response syndrome or sepsis: Probably secondary to viral gastroenteritis mostly C. diff negative diarrhea resolved My suspicion is low for pneumonia, patient's antibiotics as mentioned above. I will leave fluids will be discontinued -Possible COPD with mild acute exacerbation patient will be started on oral steroids as mentioned above -Acute renal failure prerenal azotemia and possibility of acute tubular necrosis nonoliguric from sepsis, intravascularly depletion, improved now normalized creatinine Acute renal failure is improving at this time -Leukocytosis due to assessment #1 -Hyperkalemia: Secondary to acute renal failure, Aldactone and hydrochlorothiazide is being held. I do not believe patient will require any diuretic therapy at home -Hyponatremia hypervolemic hyponatremia expected to improve with IV fluids -Hyperlipidemia -Hypertension
--- NOTE | 2018-03-24 17:45 | XR ---
EXAMINATION TYPE: XR chest 1V portable DATE OF EXAM: 03/24/2018 COMPARISON: 03/22/2018 HISTORY: Follow-up pneumonia TECHNIQUE: Single frontal view of the chest is obtained. FINDINGS: There is pulmonary hyperinflation and flattening of the diaphragm. There is some mild infi ltrate at the right lung base. There is blunting of the costophrenic angles. There is coarsening of i nterstitial markings. There is left axillary pacemaker with the lead tips in the right ventricle. IMPRESSION: COPD and pulmonary fibrosis. New small pleural effusions compared to old exam. This coul d relate to atypical heart failure. Mild right basilar pulmonary infiltrate not significantly differe nt.
[2018-03-24] MEDS: predniSONE 20 MG TAB PO SCH (18:16)
[2018-03-24] MEDS: SODIUM CHLORIDE 0.9% 500 ML 500 ML IV SCH (20:32)
[2018-03-24] MEDS: ATORVASTATIN 20 MG TAB PO SCH (20:32)
[2018-03-25] MEDS: traMADol 50 MG TAB PO PRN ×4 (01:38→20:34)
[2018-03-25 06:16] LABS: Calcium 8.9 mg/dL (8.4-10.2); Potassium 4.7 mmol/L (3.5-5.1)
[2018-03-25 07:38] LABS: Anisocytosis Slight; Basophils % (A) 0 %; Eosinophils % (A) 0 %; HCT 24.3 % (34.0-46.0); HGB 7.1 gm/dL (11.4-16.0); Hypochromasia Marked; Lymphocytes # (A) 0.4 k/uL (1.0-4.8); Lymphocytes % (A) 4 %; MCH 28.4 pg (25.0-35.0); MCHC 29.1 g/dL (31.0-37.0); MCV 97.4 fL (80.0-100.0); Macrocytosis Slight; Mean Platelet Volume 7.2; Monocytes # (A) 0.2 k/uL (0-1.0); Monocytes % (A) 2 %; Neutrophils # (A) 9.1 k/uL (1.3-7.7); Neutrophils % (A) 93 %; Platelet Count 514 k/uL (150-450); RBC 2.49 m/uL (3.80-5.40); RDW 17.3 % (11.5-15.5); WBC 9.8 k/uL (3.8-10.6)
[2018-03-25] MEDS: CARVEDILOL 12.5 MG TAB PO SCH ×2 (08:31→20:34)
[2018-03-25] MEDS: CLOPIDOGREL 75 MG TAB PO SCH (08:31)
[2018-03-25] MEDS: predniSONE 20 MG TAB PO SCH (08:32)
[2018-03-25] MEDS: IPRATROPIUM-ALBUTEROL 3 ML NEB INHALATION PRN (08:32)
[2018-03-25] MEDS: ALLOPURINOL 100 MG TAB PO SCH (08:32)
[2018-03-25] MEDS: SERTRALINE 25 MG TAB PO SCH (08:32)
[2018-03-25] MEDS: ASPIRIN 81 MG PO SCH (08:34)
[2018-03-25] MEDS: SYMBICORT 160-4.5 MCG INHALER INHALATION SCH ×2 (08:34→19:52)
[2018-03-25] MEDS: SODIUM FERRIC GLUCONAT-SUCROSE 125 MG in SODIUM CHLORIDE 0.9% 100 ML IVPB SCH (09:47)
--- NOTE | 2018-03-25 09:53 | P.PN ---
Subjective Patient is seen in follow-up for acute kidney injury on chronic kidney disease. Renal function is improving with creatinine down to 0.78 today. 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. 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 She is noted to have atrophic right kidney. Diarrhea has improved. Continues to have a cough but better. Denies chest pain or shortness of breath. Vital signs are stable. General: The patient appeared well nourished and normally developed. HEENT: Head exam is unremarkable. Neck is without jugular venous distension. LUNGS: Lungs are clear to auscultation and percussion. Breath sounds decreased. HEART: Rate and Rhythm are regular. First and second heart sounds normal. No murmurs, rubs or gallops. ABDOMEN: Abdominal exam reveals normal bowel sounds. Non-tender and non- distended. No evidence of peritonitis. EXTREMITITES: No clubbing, cyanosis, or edema. Objective - Vital Signs Vital signs: Vital Signs Temp 98.2 F 03/25/18 04:00 Pulse 107 H 03/25/18 08:53 Resp 16 03/25/18 04:00 BP 118/61 03/25/18 04:00 Pulse Ox 91 L 03/25/18 08:35 Intake & Output 03/24/18 03/25/18 03/25/18 18:59 06:59 18:59 Intake Total 355 600 Output Total 250 650 Balance 105 -50 Weight 43.3 kg 43.5 kg Intake: IV 155 600 Sodium Chloride 0.9% 1, 155 600 000 ml @ 75 mls/hr IV . [id number] [facility] Rx#:[id number] Oral 200 Output: Urine 250 650 Other: Voiding Method Toilet Toilet Bedside Commode Bedside Commode # Voids 2 - Labs CBC & Chem 7: 03/25/18 05:22 03/25/18 05:22 Labs: Abnormal Lab Results - Last 24 Hours (Table) 03/25/18 03/25/18 Range/Units 05:22 05:22 RBC 2.49 L (3.80-5.40) m/uL Hgb 7.1 L (11.4-16.0) gm/dL Hct 24.3 L (34.0-46.0) % MCHC 29.1 L (31.0-37.0) g/dL RDW 17.3 H (11.5-15.5) % Plt Count 514 H (150-450) k/uL Neutrophils # 9.1 H (1.3-7.7) k/uL Lymphocytes # 0.4 L (1.0-4.8) k/uL Sodium 136 L (137-145) mmol/L BUN 28 H (7-17) mg/dL Glucose 156 H (74-99) mg/dL Microbiology - Last 24 Hours (Table) 03/24/18 18:00 Gram Stain - Preliminary Sputum Sputum Culture - Preliminary 03/21/18 20:27 Blood Culture - Preliminary Blood No Growth after 72 hours 03/21/18 18:45 Blood Culture - Preliminary Blood No Growth after 72 hours Assessment and Plan Plan: Assessment: 1. Nonoliguric acute kidney injury mostly prerenal secondary to intravascular volume depletion from diarrhea. Improving. Creatinine down to 0.78 today. 2. Hyperkalemia secondary to acute kidney injury and Aldactone. Improved. 3. 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 Unknown baseline creatinine. Patient follows with bottom turning lathe turner out of [place]. 4. Nausea and vomiting along with diarrhea likely related to viral gastroenteritis. Improved. 5. Atypical cyst noted on the left kidney. This will need to be monitored as an outpatient. 6. Hypertension with chronic kidney disease. Controlled. 7. Pneumonia maintained on antibiotics. 8. Anemia of chronic kidney disease. Severe iron deficiency noted. No active bleeding noted. 9. Hypomagnesemia from poor oral intake. Status post replacement. Improved. Plan: Hep-Lock IV fluids. Avoid nephrotoxins. Continue to hold diuretics for now. Ferrlecit 125 mg IV daily for 3 days. Second dose today. Maintain Aranesp. Monitor hemoglobin.
--- NOTE | 2018-03-25 16:36 | PN ---
PROGRESS NOTE DATE OF SERVICE: 03/25/2018 INTERVAL HISTORY: This 77-year-old woman was admitted with COPD, pneumonia, and multiple medical problems, also had renal failure. The patient is monitored in ICU at this time. The patient's hemoglobin is improved to 7.1 and creatinine is improved to 0.78. At this time the patient is being closely monitored. PAST MEDICAL HISTORY: Reviewed. REVIEW OF SYSTEMS: Cardiovascular: No angina or palpitations. Respiration: As mentioned earlier. GI: No nausea or vomiting. no dysuria. Nervous System: As mentioned earlier. CURRENT MEDICATIONS ARE: Reviewed and include: 1. DuoNeb q.i.d. and p.r.n. 2. Zyloprim 100 mg daily. 3. Aspirin 81 mg. 4. Lipitor 20 mg q.h.s. 5. Symbicort 12.5 two puffs b.i.d. 6. Coreg 25 mg b.i.d. 7. Rocephin 1 g daily. 8. Klonopin 0.5 . 9. Plavix. 10.Aranesp. 11.Zoloft. 12.Ultram. PHYSICAL EXAM: GENERAL: Patient is alert, oriented x3. VITAL SIGNS: Pulse 71, blood pressure 160/61, respiration 20, temperature 98.1, pulse ox 98% on 2 L. HEENT: Conjunctivae normal. Oral mucosa moist. NECK: Neck is no jugular venous distention. No carotid bruit. No lymph node enlargement. CARDIOVASCULAR SYSTEM: S1, S2 muffled. RESPIRATORY: Breath sounds diminished in the bases. Bilateral scattered rhonchi and crackles. Expiratory wheezing also present. ABDOMEN: Soft, nontender. No mass palpable. LEGS: No edema. No swelling. NERVOUS SYSTEM: Higher functions as mentioned earlier. Moves all four extremities. No focal deficits. Lymphatics: No lymph nodes palpable in the neck, axillae or groin. SKIN: No ulcer, rash or bleeding. LABS: WBC 9.2, hemoglobin 7.1, sodium is 136. ASSESSMENT: 1. Chronic obstructive pulmonary disease acute exacerbation with right lower lobe pneumonia possibly gram-negative. 2. Possible severe acute respiratory syndrome. 3. Possible viral gastroenteritis. 4. Acute renal failure, prerenal azotemia. 5. Leukocytosis. 6. Hyperkalemia. 7. Hyponatremia. 8. Hyperlipidemia. 9. Hypertension. RECOMMENDATIONS AND DISCUSSION: In this 77-year-old woman who presented with multiple complex medical issues, we will monitor the patient closely. Continue the current medications, continue symptomatic treatment. Otherwise, at this time, I recommend continue with broad-spectrum IV antibiotics. Continue with bronchodilators. Continue the rest of the medications. The patient is currently on Rocephin. Otherwise, DVT prophylaxis. Guarded prognosis because of multiple complex medical issues and further recommendations to follow. MMODL / IJN: [id number] / JEREMY
[2018-03-25] MEDS: ATORVASTATIN 20 MG TAB PO SCH (20:34)
[2018-03-25] MEDS: HEPARIN SODIUM,PORCINE 5,000 UNIT/ML 1 ML VIAL SQ SCH (20:35)
[2018-03-25] MEDS: SODIUM CHLORIDE 0.9% 500 ML 500 ML IV SCH (20:35)
[2018-03-26] MEDS: clonazePAM 0.5 MG TAB PO PRN ×3 (01:15→21:11)
[2018-03-26] MEDS: traMADol 50 MG TAB PO PRN ×3 (04:26→20:05)
[2018-03-26 05:58] LABS: Anisocytosis Slight; Basophils % (A) 0 %; Eosinophils % (A) 0 %; HCT 21.5 % (34.0-46.0); Hypochromasia Marked; Lymphocytes # (A) 0.9 k/uL (1.0-4.8); Lymphocytes % (A) 6 %; MCH 28.5 pg (25.0-35.0); MCHC 29.9 g/dL (31.0-37.0); MCV 95.4 fL (80.0-100.0); Macrocytosis Slight; Mean Platelet Volume 6.9; Monocytes # (A) 0.7 k/uL (0-1.0); Monocytes % (A) 5 %; Neutrophils # (A) 12.4 k/uL (1.3-7.7); Neutrophils % (A) 87 %; Platelet Count 545 k/uL (150-450); RBC 2.25 m/uL (3.80-5.40); RDW 18.1 % (11.5-15.5); WBC 14.2 k/uL (3.8-10.6)
[2018-03-26 06:02] LABS: Calcium 8.8 mg/dL (8.4-10.2); Magnesium 1.6 mg/dL (1.6-2.3); Phosphorus 1.9 mg/dL (2.5-4.5); Potassium 4.3 mmol/L (3.5-5.1)
[2018-03-26 06:07] LABS: HGB 6.4 gm/dL (11.4-16.0)
[2018-03-26] MEDS: MAGNESIUM SULFATE-D5W PMX 1 GM in DEXTROSE/WATER 1 100ML.BAG IVPB SCH ×2 (06:47→08:00)
[2018-03-26] MEDS: IPRATROPIUM-ALBUTEROL 3 ML NEB INHALATION PRN ×2 (07:29→10:53)
[2018-03-26] MEDS: SYMBICORT 160-4.5 MCG INHALER INHALATION SCH ×2 (07:29→19:23)
[2018-03-26] MEDS ORDERED: Phosphorus Replacement Protoco 1 EACH MISC MISCELLANE PRN (07:33)
[2018-03-26] MEDS ORDERED: SODIUM PHOSPHATE 10 MMOL in SODIUM CHLORIDE 0.9% 250 ML IVPB SCH (07:45)
[2018-03-26] MEDS ORDERED: SODIUM GLYCEROPHOSPHATE 20 MMOL in SODIUM CHLORIDE 0.9% 250 ML IV ONE (07:45)
[2018-03-26] MEDS: ALLOPURINOL 100 MG TAB PO SCH (08:10)
[2018-03-26] MEDS: CARVEDILOL 12.5 MG TAB PO SCH ×2 (08:10→21:08)
[2018-03-26] MEDS: SERTRALINE 25 MG TAB PO SCH (08:13)
[2018-03-26] MEDS: predniSONE 20 MG TAB PO SCH (08:13)
[2018-03-26] MEDS: DOCUSATE 100 MG CAP PO SCH ×2 (09:40→21:08)
[2018-03-26] MEDS: SODIUM FERRIC GLUCONAT-SUCROSE 125 MG in SODIUM CHLORIDE 0.9% 100 ML IVPB SCH (10:26)
[2018-03-26] MEDS: ASPIRIN 81 MG PO SCH (12:42)
[2018-03-26] MEDS: CLOPIDOGREL 75 MG TAB PO SCH (12:42)
[2018-03-26] MEDS: HEPARIN SODIUM,PORCINE 5,000 UNIT/ML 1 ML VIAL SQ SCH (12:42)
--- NOTE | 2018-03-26 13:30 | P.PN ---
Subjective Patient is seen in follow-up for acute kidney injury on chronic kidney disease. Renal function is improving with creatinine down to 0.76 today. 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. 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 She is noted to have atrophic right kidney. Diarrhea has improved. Continues to have a cough but better. Denies chest pain or shortness of breath. Hemoglobin low at 6.4 this morning and she did receive a unit of blood this morning. Oral intake is good. No active bleeding noted. Vital signs are stable. General: The patient appeared well nourished and normally developed. HEENT: Head exam is unremarkable. Neck is without jugular venous distension. LUNGS: Lungs are clear to auscultation and percussion. Breath sounds decreased. HEART: Rate and Rhythm are regular. First and second heart sounds normal. No murmurs, rubs or gallops. ABDOMEN: Abdominal exam reveals normal bowel sounds. Non-tender and non- distended. No evidence of peritonitis. EXTREMITITES: No clubbing, cyanosis, or edema. Objective - Vital Signs Vital signs: Vital Signs Temp 97.9 F 03/26/18 12:00 Pulse 64 03/26/18 12:00 Resp 16 03/26/18 12:00 BP 146/83 03/26/18 12:00 Pulse Ox 96 03/26/18 12:00 Intake & Output 03/25/18 03/26/18 03/26/18 18:59 06:59 18:59 Intake Total 0 Output Total 1050 Balance -1050 0 Weight 43.5 kg 46.9 kg Intake: Blood Product 0 Rc As-3 Unit 0 [id number] Output: Urine 1050 Other: Voiding Method Toilet Bedside Commode Bedside Commode Bedside Commode - Labs CBC & Chem 7: 03/26/18 05:18 03/26/18 05:18 Labs: Abnormal Lab Results - Last 24 Hours (Table) 03/26/18 03/26/18 03/26/18 Range/Units 05:18 05:18 05:18 WBC 14.2 H (3.8-10.6) k/uL RBC 2.25 L (3.80-5.40) m/uL Hgb 6.4 L* (11.4-16.0) gm/dL Hct 21.5 L (34.0-46.0) % MCHC 29.9 L (31.0-37.0) g/dL RDW 18.1 H (11.5-15.5) % Plt Count 545 H (150-450) k/uL Neutrophils # 12.4 H (1.3-7.7) k/uL Lymphocytes # 0.9 L (1.0-4.8) k/uL Sodium 134 L (137-145) mmol/L BUN 26 H (7-17) mg/dL Glucose 124 H (74-99) mg/dL Phosphorus 1.9 L (2.5-4.5) mg/dL Crossmatch See Detail Microbiology - Last 24 Hours (Table) 03/21/18 20:27 Blood Culture - Preliminary Blood No Growth after 96 hours 03/21/18 18:45 Blood Culture - Preliminary Blood No Growth after 96 hours Assessment and Plan Plan: Assessment: 1. Nonoliguric acute kidney injury mostly prerenal secondary to intravascular volume depletion from diarrhea. Resolved. 2. Hyperkalemia secondary to acute kidney injury and Aldactone. Improved. 3. 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 Baseline creatinine near 1. 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 4. Nausea and vomiting along with diarrhea likely related to viral gastroenteritis. Improved. 5. Atypical cyst noted on the left kidney. This will need to be monitored as an outpatient. 6. Hypertension with chronic kidney disease. Controlled. 7. Pneumonia maintained on antibiotics. 8. Anemia of chronic kidney disease. Severe iron deficiency noted. No active bleeding noted. Status post blood transfusion this morning. 9. Hypomagnesemia from poor oral intake. 10. Hypophosphatemia from poor oral intake. Plan: Patient remains off IV fluids. Encourage oral intake. Avoid nephrotoxins. Continue to hold diuretics for now. Ferrlecit 125 mg IV daily for 3 days. Third dose today. Maintain Aranesp. Check stool for occult blood. Consider GI consultation. Phosphorus and magnesium has also been replaced.
[2018-03-26 15:50] LABS: Anisocytosis Slight; HCT 29.1 % (34.0-46.0); Hypochromasia Marked; MCH 28.5 pg (25.0-35.0); MCHC 30.3 g/dL (31.0-37.0); MCV 94.2 fL (80.0-100.0); Macrocytosis Slight; Mean Platelet Volume 7.1; Platelet Count 487 k/uL (150-450); Poikilocytosis Moderate; RBC 3.09 m/uL (3.80-5.40); RDW 17.9 % (11.5-15.5); WBC 14.5 k/uL (3.8-10.6)
[2018-03-26 15:55] LABS: HGB 8.8 gm/dL (11.4-16.0)
--- NOTE | 2018-03-26 16:40 | PN ---
PROGRESS NOTE DATE OF SERVICE: 03/26/2018 This 77-year-old woman is admitted with COPD pneumonia and multiple symptomatology, also had suspected sepsis. The patient also had possibly viral gastroenteritis. Patient also had anemia. Today hemoglobin was found to be 6.4 which is undetermined etiology. The patient is being transfused at this time. PAST MEDICAL HISTORY: Reviewed. REVIEW OF SYSTEMS: CARDIOVASCULAR: No angina or palpitations. RESPIRATION: As mentioned earlier. GI mentioned earlier. : No dysuria or hematuria. NERVOUS SYSTEM: No numbness or weakness. CURRENT MEDICATIONS ARE: Reviewed and include: 1. DuoNeb q.i.d. and p.r.n. 2. Zyloprim 100 mg p.o. daily. 3. Aspirin 81 mg. 4. Lipitor 20 mg q.h.s. 5. Symbicort 160/4.5 two puffs b.i.d. 6. Coreg 25 mg b.i.d. 7. Rocephin 1 g daily. 8. Klonopin 0.5 mg q.6h p.r.n. 9. Plavix 75 mg. 10.Aranesp 40 mcg every 7 days. 11.Colace 100 mg b.i.d. 12.Heparin 5000 subcu b.i.d. 13.Replacement protocol. 14.Zoloft 25 mg p.o. daily. 15.Ultram 50 mg q.6h p.r.n. PHYSICAL EXAM: Patient is alert, oriented x3, pulse of 93, blood pressure 111/67, respiration 19, temperature 98 degrees, pulse ox 93% on room air. Conjunctivae pale. Oral mucosa moist. Neck is no jugular venous distention. No carotid bruit. No lymph node enlargement. Cardiovascular: S1, S2 muffled. Respirations: Breath sounds diminished in the bases. A few scattered rhonchi and crackles. ABDOMEN: Soft, nontender. No mass palpable. Legs: No edema and no swelling. NERVOUS SYSTEM: Higher functions as mentioned earlier. Moves all four extremities. Lymphatics: No lymph nodes palpable in the neck, axillae or groin. SKIN: No ulcer, rash or bleeding. LABS: WBC 14.2, hemoglobin 6.4, sodium 134. ASSESSMENT: 1. Chronic obstructive pulmonary disease acute exacerbation with right lower lobe pneumonia with possibly gram-negative. 2. Anemia, rule out gastrointestinal blood loss, status post transfusion. 3. Possible Systemic inflammatory response syndrome. 4. Possible viral gastroenteritis. 5. Acute renal failure, prerenal azotemia. 6. Leukocytosis. 7. Hyperkalemia. 8. Hyponatremia. 9. Hyperlipidemia. 10.Hypertension. RECOMMENDATIONS AND DISCUSSION: In this 77-year-old woman who presented with multiple complex medical issues, we will monitor the patient closely, continue the current medications, management and symptomatic treatment. Otherwise, at this time, I recommend stool OB and monitor hemoglobin closely. Guarded prognosis because of multiple complex medical issues. See orders for further details. Further recommendations to follow. MMODL / IJN: [id number] /
[2018-03-26] MEDS: ATORVASTATIN 20 MG TAB PO SCH (21:08)
[2018-03-26] MEDS: SODIUM CHLORIDE 0.9% 500 ML 500 ML IV SCH (22:43)
[2018-03-27] MEDS: traMADol 50 MG TAB PO PRN ×3 (02:38→18:51)
[2018-03-27 06:58] LABS: Anisocytosis Slight; Basophils % (A) 0 %; Eosinophils % (A) 0 %; HGB 8.1 gm/dL (11.4-16.0); Hypochromasia Marked; Lymphocytes # (A) 1.1 k/uL (1.0-4.8); Lymphocytes % (A) 8 %; MCH 30.3 pg (25.0-35.0); MCHC 32.4 g/dL (31.0-37.0); MCV 93.6 fL (80.0-100.0); Macrocytosis Slight; Mean Platelet Volume 6.5; Monocytes # (A) 0.6 k/uL (0-1.0); Monocytes % (A) 5 %; Neutrophils # (A) 10.6 k/uL (1.3-7.7); Neutrophils % (A) 85 %; Platelet Count 479 k/uL (150-450); Poikilocytosis Moderate; RBC 2.67 m/uL (3.80-5.40); RDW 18.5 % (11.5-15.5); WBC 12.5 k/uL (3.8-10.6)
[2018-03-27 07:39] LABS: Calcium 8.6 mg/dL (8.4-10.2); Magnesium 1.7 mg/dL (1.6-2.3); Potassium 3.9 mmol/L (3.5-5.1)
[2018-03-27] MEDS: ALLOPURINOL 100 MG TAB PO SCH (07:47)
[2018-03-27] MEDS: DOCUSATE 100 MG CAP PO SCH ×2 (07:48→20:57)
[2018-03-27] MEDS: SERTRALINE 25 MG TAB PO SCH (07:48)
[2018-03-27] MEDS: predniSONE 20 MG TAB PO SCH (07:48)
[2018-03-27] MEDS: clonazePAM 0.5 MG TAB PO PRN ×2 (07:51→20:57)
[2018-03-27] MEDS: SYMBICORT 160-4.5 MCG INHALER INHALATION SCH ×2 (08:06→19:47)
[2018-03-27] MEDS: CARVEDILOL 12.5 MG TAB PO SCH ×2 (09:47→20:57)
[2018-03-27] MEDS ORDERED: MAGNESIUM SULFATE-D5W PMX 1 GM in DEXTROSE/WATER 1 100ML.BAG IVPB ONE (10:20)
--- NOTE | 2018-03-27 10:22 | P.PN ---
Subjective Patient is seen in follow-up for acute kidney injury on chronic kidney disease. RUY has resolved. Patient follows with [facility] repair and salvage out of [facility]. 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 She is noted to have atrophic right kidney. Diarrhea has improved. Denies chest pain or shortness of breath. She did receive a unit of blood yesterday. Hemoglobin 8.1 this morning. Oral intake is good. No active bleeding noted. Vital signs are stable. General: The patient appeared well nourished and normally developed. HEENT: Head exam is unremarkable. Neck is without jugular venous distension. LUNGS: Lungs are clear to auscultation and percussion. Breath sounds decreased. HEART: Rate and Rhythm are regular. First and second heart sounds normal. No murmurs, rubs or gallops. ABDOMEN: Abdominal exam reveals normal bowel sounds. Non-tender and non- distended. No evidence of peritonitis. EXTREMITITES: No clubbing, cyanosis, or edema. Objective - Vital Signs Vital signs: Vital Signs Temp 98.2 F 03/27/18 05:20 Pulse 93 03/27/18 05:20 Resp 16 03/27/18 05:20 BP 160/87 03/27/18 05:20 Pulse Ox 92 L 03/27/18 08:07 Intake & Output 03/26/18 03/27/18 03/27/18 18:59 06:59 18:59 Intake Total 310 250 Output Total 550 Balance -240 250 Intake: Intake, IV Titration 250 Amount Sodium Glycerophosphate 250 20 mmol In Sodium Chloride 0.9% 250 ml @ 31 .25 mls/hr IV ONCE ONE Rx #:[id number] Blood Product 310 Rc As-3 Unit 310 [id number] Output: Urine 550 Other: Voiding Method Bedside Commode Toilet Toilet # Voids 1 1 - Labs CBC & Chem 7: 03/27/18 06:13 03/27/18 06:13 Labs: Abnormal Lab Results - Last 24 Hours (Table) 03/26/18 03/26/18 03/27/18 Range/Units 05:18 15:37 06:13 WBC 14.5 H 12.5 H (3.8-10.6) k/uL RBC 3.09 L 2.67 L (3.80-5.40) m/uL Hgb 8.8 L D 8.1 L (11.4-16.0) gm/dL Hct 29.1 L 25.0 L (34.0-46.0) % MCHC 30.3 L (31.0-37.0) g/dL RDW 17.9 H 18.5 H (11.5-15.5) % Plt Count 487 H 479 H (150-450) k/uL Neutrophils # 10.6 H (1.3-7.7) k/uL Chloride (98-107) mmol/L BUN (7-17) mg/dL Crossmatch See Detail 03/27/18 Range/Units 06:13 WBC (3.8-10.6) k/uL RBC (3.80-5.40) m/uL Hgb (11.4-16.0) gm/dL Hct (34.0-46.0) % MCHC (31.0-37.0) g/dL RDW (11.5-15.5) % Plt Count (150-450) k/uL Neutrophils # (1.3-7.7) k/uL Chloride 108 H (98-107) mmol/L BUN 20 H (7-17) mg/dL Crossmatch Microbiology - Last 24 Hours (Table) 03/24/18 18:00 Gram Stain - Final Sputum Sputum Culture - Final 03/21/18 20:27 Blood Culture - Preliminary Blood No Growth after 120 hours 03/21/18 18:45 Blood Culture - Preliminary Blood No Growth after 120 hours Assessment and Plan Plan: Assessment: 1. Nonoliguric acute kidney injury mostly prerenal secondary to intravascular volume depletion from diarrhea. Resolved. 2. Hyperkalemia secondary to acute kidney injury and Aldactone. Improved. 3. 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 Baseline creatinine near 1. Patient follows with [facility] out of [place]. 4. Nausea and vomiting along with diarrhea likely related to viral gastroenteritis. Improved. 5. Atypical cyst noted on the left kidney. This will need to be monitored as an outpatient. 6. Hypertension with chronic kidney disease. Controlled. 7. Pneumonia maintained on antibiotics. 8. Anemia of chronic kidney disease. Severe iron deficiency noted. No active bleeding noted. Status post blood transfusion yesterday. Status post 3 doses of IV iron. 9. Hypomagnesemia from poor oral intake. Improved. 10. Hypophosphatemia from poor oral intake. Status post placement. Plan: Patient remains off IV fluids. Encourage oral intake. Avoid nephrotoxins. Continue to hold diuretics for now. Maintain Aranesp. Repeat electrolytes in the morning. 1 g IV magnesium today.
[2018-03-27] MEDS: SODIUM FERRIC GLUCONAT-SUCROSE 125 MG in SODIUM CHLORIDE 0.9% 100 ML IVPB SCH (11:35)
[2018-03-27] MEDS: SODIUM CHLORIDE 0.9% 500 ML 500 ML IV SCH (17:37)
[2018-03-27] MEDS: ATORVASTATIN 20 MG TAB PO SCH (20:57)
--- NOTE | 2018-03-27 22:02 | PN ---
PROGRESS NOTE DATE OF SERVICE: 03/27/2018 This 77-year-old woman who was admitted with COPD acute exacerbation and right lower lobe pneumonia is being closely monitored. Patient also has anemia of undetermined etiology. PT, OT evaluated the patient for ECF rehab. No chest pain. No palpitations. No fever. Patient is feeling slightly better today. EXAM: Alert and oriented x2. Pulse 82, blood pressure 150/77, respiration 20, temperature is normal, pulse ox 98% on 3 L. HEENT: Conjunctivae normal. Oral mucosa moist. Neck is no jugular venous distention. No carotid bruit. No lymph node enlargement. CARDIOVASCULAR: S1, S2. RESPIRATORY: Breath sounds diminished in the bases. Bilateral scattered rhonchi and crackles. ABDOMEN: Soft, nontender. LEGS: No edema. NERVOUS SYSTEM: No focal deficits. LAB STUDIES: WBC 12.8, hemoglobin is 8.1. ASSESSMENT: 1. Chronic obstructive pulmonary disease acute exacerbation with right lower lobe pneumonia with possibly gram-negative. 2. Anemia, rule out GI bleed, status post transfusion. 3. Possible SIRS. 4. Possible viral gastroenteritis. 5. Acute renal failure, prerenal azotemia. 6. Leukocytosis. 7. Hyperkalemia. 8. Hyponatremia. 9. Hyperlipidemia. 10.Hypertension. RECOMMENDATIONS AND DISCUSSION: I recommend to continue current management, continue monitoring and symptomatic treatment. Otherwise at this time, stool OP. Further workup depending upon the hemoglobin levels and the prognosis guarded. Further recommendations to follow. MMODL / IJN: [id number] /
[2018-03-28] MEDS: traMADol 50 MG TAB PO PRN ×4 (00:39→20:06)
[2018-03-28] MEDS: CARVEDILOL 12.5 MG TAB PO SCH ×2 (05:55→19:17)
[2018-03-28] MEDS: ALLOPURINOL 100 MG TAB PO SCH (07:39)
[2018-03-28] MEDS: clonazePAM 0.5 MG TAB PO PRN ×2 (07:40→22:00)
[2018-03-28] MEDS: DOCUSATE 100 MG CAP PO SCH ×2 (07:40→18:29)
[2018-03-28] MEDS: SERTRALINE 25 MG TAB PO SCH (07:40)
[2018-03-28] MEDS: predniSONE 20 MG TAB PO SCH (07:40)
[2018-03-28] MEDS: SYMBICORT 160-4.5 MCG INHALER INHALATION SCH ×2 (08:20→20:54)
[2018-03-28 09:54] LABS: Anisocytosis Slight; Basophils % (A) 0 %; Eosinophils # (A) 0.1 k/uL (0-0.7); Eosinophils % (A) 1 %; HCT 27.7 % (34.0-46.0); HGB 8.3 gm/dL (11.4-16.0); Hypochromasia Marked; Lymphocytes # (A) 1.2 k/uL (1.0-4.8); Lymphocytes % (A) 11 %; MCH 28.5 pg (25.0-35.0); MCHC 29.8 g/dL (31.0-37.0); MCV 95.6 fL (80.0-100.0); Macrocytosis Slight; Mean Platelet Volume 7.1; Monocytes # (A) 0.5 k/uL (0-1.0); Monocytes % (A) 4 %; Neutrophils # (A) 9.7 k/uL (1.3-7.7); Neutrophils % (A) 83 %; Platelet Count 458 k/uL (150-450); Poikilocytosis Slight; RDW 19.1 % (11.5-15.5); WBC 11.6 k/uL (3.8-10.6)
--- NOTE | 2018-03-28 09:54 | P.PN ---
Subjective Patient is seen in follow-up for acute kidney injury on chronic kidney disease. RUY has resolved. 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 She is noted to have atrophic right kidney. Diarrhea has improved. Denies chest pain or shortness of breath. She did receive a unit of blood on 03/26. Hemoglobin 8.1 as of yesterday. Oral intake is good. No active bleeding noted. BP high overnight. Vital signs are stable. General: The patient appeared well nourished and normally developed. HEENT: Head exam is unremarkable. Neck is without jugular venous distension. LUNGS: Lungs are clear to auscultation and percussion. Breath sounds decreased. HEART: Rate and Rhythm are regular. First and second heart sounds normal. No murmurs, rubs or gallops. ABDOMEN: Abdominal exam reveals normal bowel sounds. Non-tender and non- distended. No evidence of peritonitis. EXTREMITITES: No clubbing, cyanosis, or edema. Objective - Vital Signs Vital signs: Vital Signs Temp 98.1 F 03/28/18 05:15 Pulse 82 03/28/18 07:35 Resp 16 03/28/18 05:15 BP 186/72 03/28/18 07:35 Pulse Ox 95 03/28/18 05:15 Intake & Output 03/27/18 03/28/18 03/28/18 18:59 06:59 18:59 Intake Total 590 Balance 590 Intake: Oral 590 Other: Voiding Method Toilet Toilet Toilet # Voids 1 # Bowel Movements 0 - Labs CBC & Chem 7: 03/27/18 06:13 03/27/18 06:13 Labs: Microbiology - Last 24 Hours (Table) 03/21/18 20:27 Blood Culture - Final Blood No Growth after 144 hours 03/21/18 18:45 Blood Culture - Final Blood No Growth after 144 hours 03/24/18 18:00 Gram Stain - Final Sputum Sputum Culture - Final Assessment and Plan Plan: Assessment: 1. Nonoliguric acute kidney injury mostly prerenal secondary to intravascular volume depletion from diarrhea. Resolved. 2. Hyperkalemia secondary to acute kidney injury and Aldactone. Improved. 3. 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 Baseline creatinine near 1. 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 4. Nausea and vomiting along with diarrhea likely related to viral gastroenteritis. Improved. 5. Atypical cyst noted on the left kidney. This will need to be monitored as an outpatient. 6. Hypertension with chronic kidney disease. BP high overnight. 7. Pneumonia maintained on antibiotics. 8. Anemia of chronic kidney disease. Severe iron deficiency noted. No active bleeding noted. Status post blood transfusion 03/26. Status post 3 doses of IV iron. 9. Hypomagnesemia from poor oral intake. Improved. 10. Hypophosphatemia from poor oral intake. Status post placement. Plan: Patient remains off IV fluids. Encourage oral intake. Avoid nephrotoxins. Continue to hold diuretics for now. Maintain Aranesp. Add hydralazine.
[2018-03-28 10:04] LABS: Calcium 8.4 mg/dL (8.4-10.2); Magnesium 1.5 mg/dL (1.6-2.3); Phosphorus 2.2 mg/dL (2.5-4.5); Potassium 3.6 mmol/L (3.5-5.1)
[2018-03-28] MEDS: hydrALAZINE HCL 25 MG TAB PO SCH ×2 (16:34→22:00)
[2018-03-28] MEDS: SODIUM CHLORIDE 0.9% 500 ML 500 ML IV SCH (16:34)
[2018-03-28] MEDS: hydrALAZINE HCL 20 MG/ML 1 ML VIAL IVP PRN (19:18)
--- NOTE | 2018-03-28 19:57 | PN ---
PROGRESS NOTE DATE OF SERVICE: 03/28/2018 This 77-year-old woman was admitted with COPD exacerbation also had anemia. The patient is feeling much better. No chest pain. No palpitations. Her stool OB is positive at this time. Magnesium 1.5. EXAM: Alert and oriented x2. Pulse is 87. Blood pressure 144/75, respiration 18, temperature is normal. Pulse ox 94% on 3 L. HEENT: Conjunctivae normal. NECK: No jugular venous distention. CARDIOVASCULAR: S1, S2 muffled. RESPIRATORY: Breath sounds diminished in the bases. Bilateral scattered rhonchi and crackles. ABDOMEN is soft. NERVOUS SYSTEM: No focal deficits. LABS: Hemoglobin 8.3, glucose 138, magnesium 1.5. ASSESSMENT: 1. Chronic obstructive pulmonary disease acute exacerbation with right lower lobe pneumonia with possibly gram-negative. 2. Anemia, rule out gastrointestinal bleed, status post transfusion. 3. Stool OB positive. 4. Possible severe acute respiratory syndrome. 5. Possible viral gastroenteritis. 6. Acute renal failure, prerenal azotemia. 7. Leukocytosis. 8. Hyperkalemia. 9. Hyponatremia. 10.Hyperlipidemia. 11.Hypertension. RECOMMENDATIONS AND DISCUSSION: Recommend to continue current medications, management and symptomatic treatment. Continue the bronchodilators. Monitor the hemoglobin closely. Also recommend evaluation by Gastroenterology for further scopes which can also be done as outpatient also. Overall prognosis guarded because of multiple complex medical issues and further recommendations the patient follow. MMJAMA / JAN: [id number] /
[2018-03-28] MEDS: ATORVASTATIN 20 MG TAB PO SCH (22:00)
[2018-03-28] MEDS ORDERED: hydrALAZINE HCL 25 MG TAB PO STA (23:02)
[2018-03-29] MEDS: traMADol 50 MG TAB PO PRN ×4 (02:39→21:02)
[2018-03-29] MEDS: hydrALAZINE HCL 20 MG/ML 1 ML VIAL IVP PRN ×2 (03:21→08:16)
[2018-03-29] MEDS: SYMBICORT 160-4.5 MCG INHALER INHALATION SCH ×2 (07:06→19:37)
[2018-03-29] MEDS: clonazePAM 0.5 MG TAB PO PRN ×2 (08:05→21:02)
[2018-03-29 08:06] LABS: Anisocytosis Slight; Basophils % (A) 0 %; Eosinophils # (A) 0.1 k/uL (0-0.7); Eosinophils % (A) 1 %; HCT 28.9 % (34.0-46.0); HGB 8.6 gm/dL (11.4-16.0); Hypochromasia Marked; Lymphocytes # (A) 1.2 k/uL (1.0-4.8); Lymphocytes % (A) 10 %; MCH 28.8 pg (25.0-35.0); MCHC 29.9 g/dL (31.0-37.0); MCV 96.3 fL (80.0-100.0); Macrocytosis Slight; Monocytes # (A) 0.6 k/uL (0-1.0); Monocytes % (A) 5 %; Neutrophils # (A) 10.4 k/uL (1.3-7.7); Neutrophils % (A) 84 %; Platelet Count 425 k/uL (150-450); Poikilocytosis Slight; RDW 19.9 % (11.5-15.5); WBC 12.4 k/uL (3.8-10.6)
[2018-03-29] MEDS: predniSONE 20 MG TAB PO SCH (08:06)
[2018-03-29] MEDS: DOCUSATE 100 MG CAP PO SCH ×3 (08:06→21:07)
[2018-03-29 08:23] LABS: Anion Gap 4 mmol/L; Blood Urea Nitrogen 18 mg/dL (7-17); Calcium 8.6 mg/dL (8.4-10.2); Carbon Dioxide 29 mmol/L (22-30); Chloride 108 mmol/L (98-107); Glucose 74 mg/dL (74-99); Potassium 4.1 mmol/L (3.5-5.1); Sodium 141 mmol/L (137-145)
[2018-03-29] MEDS ORDERED: hydrALAZINE HCL 50 MG TAB PO SCH (09:00)
[2018-03-29] MEDS: ALLOPURINOL 100 MG TAB PO SCH (09:10)
[2018-03-29] MEDS: CARVEDILOL 12.5 MG TAB PO SCH ×2 (09:10→17:11)
[2018-03-29] MEDS: SERTRALINE 25 MG TAB PO SCH (09:10)
[2018-03-29] MEDS ORDERED: MAGNESIUM SULFATE-D5W PMX 1 GM in DEXTROSE/WATER 1 100ML.BAG IVPB ONE (09:18)
--- NOTE | 2018-03-29 09:20 | P.PN ---
Subjective Patient is seen in follow-up for acute kidney injury on chronic kidney disease. RUY has resolved. Patient follows with rehab nursing tech out of [facility]. 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 She is noted to have atrophic right kidney. Diarrhea has improved. Denies chest pain or shortness of breath. She did receive a unit of blood on 03/26. Hemoglobin 8.6 today. Oral intake is good. No active bleeding noted. BP still high. Vital signs are stable. General: The patient appeared well nourished and normally developed. HEENT: Head exam is unremarkable. Neck is without jugular venous distension. LUNGS: Lungs are clear to auscultation and percussion. Breath sounds decreased. HEART: Rate and Rhythm are regular. First and second heart sounds normal. No murmurs, rubs or gallops. ABDOMEN: Abdominal exam reveals normal bowel sounds. Non-tender and non- distended. No evidence of peritonitis. EXTREMITITES: No clubbing, cyanosis, or edema. Objective - Vital Signs Vital signs: Vital Signs Temp 98.6 F 03/29/18 05:16 Pulse 94 03/29/18 05:16 Resp 16 03/29/18 05:16 BP 175/86 03/29/18 05:16 Pulse Ox 93 L 03/29/18 05:16 Intake & Output 03/28/18 03/29/18 03/29/18 18:59 06:59 18:59 Other: Voiding Method Toilet Toilet # Voids 2 # Bowel Movements 1 - Labs CBC & Chem 7: 03/29/18 06:59 03/29/18 06:59 Labs: Abnormal Lab Results - Last 24 Hours (Table) 03/28/18 03/28/18 03/28/18 Range/Units 08:34 08:34 13:29 WBC 11.6 H (3.8-10.6) k/uL RBC 2.90 L (3.80-5.40) m/uL Hgb 8.3 L (11.4-16.0) gm/dL Hct 27.7 L (34.0-46.0) % MCHC 29.8 L (31.0-37.0) g/dL RDW 19.1 H (11.5-15.5) % Plt Count 458 H (150-450) k/uL Neutrophils # 9.7 H (1.3-7.7) k/uL Chloride (98-107) mmol/L BUN (7-17) mg/dL Glucose 138 H (74-99) mg/dL Phosphorus 2.2 L (2.5-4.5) mg/dL Magnesium 1.5 L (1.6-2.3) mg/dL Stool Occult Blood Positive H (Negative) 03/29/18 03/29/18 Range/Units 06:59 06:59 WBC 12.4 H (3.8-10.6) k/uL RBC 3.00 L (3.80-5.40) m/uL Hgb 8.6 L (11.4-16.0) gm/dL Hct 28.9 L (34.0-46.0) % MCHC 29.9 L (31.0-37.0) g/dL RDW 19.9 H (11.5-15.5) % Plt Count (150-450) k/uL Neutrophils # 10.4 H (1.3-7.7) k/uL Chloride 108 H (98-107) mmol/L BUN 18 H (7-17) mg/dL Glucose (74-99) mg/dL Phosphorus (2.5-4.5) mg/dL Magnesium (1.6-2.3) mg/dL Stool Occult Blood (Negative) Assessment and Plan Plan: Assessment: 1. Nonoliguric acute kidney injury mostly prerenal secondary to intravascular volume depletion from diarrhea. Resolved. 2. Hyperkalemia secondary to acute kidney injury and Aldactone. Improved. 3. 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 Baseline creatinine near 1. Patient follows with rehab nursing tech out of [place]. 4. Nausea and vomiting along with diarrhea likely related to viral gastroenteritis. Improved. 5. Atypical cyst noted on the left kidney. This will need to be monitored as an outpatient. 6. Hypertension with chronic kidney disease. BP high. 7. Pneumonia maintained on antibiotics. 8. Anemia of chronic kidney disease. Severe iron deficiency noted. No active bleeding noted. Status post blood transfusion 03/26. Status post 3 doses of IV iron. 9. Hypomagnesemia from poor oral intake. Magnesium 1.5 yesterday. 10. Hypophosphatemia from poor oral intake. Status post placement. Plan: Patient remains off IV fluids. Encourage oral intake. Avoid nephrotoxins. Continue to hold diuretics for now. Maintain Aranesp. Increase hydralazine to 100 mg 3 times daily. Replace Magnesium.
[2018-03-29] MEDS ORDERED: TEMAZEPAM 7.5 MG CAP PO PRN (11:56)
--- NOTE | 2018-03-29 12:22 | P.CRDCN ---
<Verna Robles - Last Filed: 03/29/18 12:11> History of Present Illness History of present illness: Mrs. Burroughs is a pleasant 77-year-old female past medical history significant for coronary artery disease s/p stenting details unavailable at this time, hypertension, dyslipidemia, BiV pacemaker/IVD by [employer], COPD, CVA, chronic kidney disease, ischemic cardiomyopathy and chronic nicotine dependence. She follows with Dr. Pizarro in [place] for cardiology. We have been asked to see her in consultation for what VT on telemetry. Telemetry tracings have been reviewed since admission and reveal she is having runs of non- sustained atrial tachycardia, not VT. There are also some idiopathic slow ventricular beats at times as well. She denies ever having been told she has an arrhythmia. Although she seems to be somewhat of a poor historian. She is not currently on any blood thinners for any reason. She is currently admitted to the hospital with acute kidney injury, acute blood loss anemia with hgb 6.4 and exacerbation of COPD. she is currently receiving IV antibiotics. Nephrology is also following. Diuretics have been held and hydralazine added at 100 mg TID. Per nursing staff she is requiring more oxygen to maintain O2 saturation. She does not currently wear home oxygen. She seems somewhat tachypneic during conversation however denies feeling reticularis short of breath, denies chest pain, palpitations or dizziness. No PND or orthopnea. EKGs on the chart of been reviewed, indicate sinus mechanism with no acute ST or T wave abnormalities noted with intermittent atrial pacing. Chest x-ray done on the reveals COPD and pulmonary fibrosis. Mild right basilar pulmonary infiltrate noted on the previous exam. Initial admission chest xray indicates right lower lobe infiltrate. Laboratory data reviewed, WBC 12.4 down from 21.1 on admission, hemoglobin 8.6, platelets 425, sodium 141, potassium 4.1, creatinine 0.72 down from 2.47 on admission, magnesium yesterday 1.5, phosphorus yesterday 2.2 both are currently being replaced and she has occult positive. Current cardiac medications include aspirin 81 mg daily, carvedilol 25 mg twice a day, Plavix 75 mg daily, simvastatin 40 mg daily, spironolactone/HCTZ 25/25 mg daily. She also takes Ultram, allopurinol, prednisone, Klonopin and Zoloft. At the time of my exam: CONSTITUTIONAL: Denies fever. Denies chills. EYES: Denies blurred vision. Denies vision changes. Denies eye pain. EARS, NOSE, MOUTH & THROAT: Denies headache. Denies sore throat. Denies ear pain. CARDIOVASCULAR: Denies chest pain. Denies shortness of breath. Denies orthopnea. Denies PND. Denies palpitations. RESPIRATORY: Denies cough. GASTROINTESTINAL: Denies abdominal pain. Denies diarrhea. Denies constipation. Denies nausea. Denies vomiting. MUSCULOSKELETAL: Denies myalgias. INTEGUMENTARY: Denies pruitis. Denies rash. NEUROLOGIC: Denies numbness. Denies tingling. Denies weakness. PSYCHIATRIC: Denies anxiety. Denies depression. ENDOCRINE: Denies fatigue. Denies weight change. Denies polydipsia. Denies polyurina. GENITOURINARY: Denies burning, hematuria or urgency with micturation. HEMATOLOGIC: Denies history of anemia. Denies bleeding. Blood pressure 175/86 heart rate 94 afebrile maintaining oxygen saturation on room air GENERAL: This is a 77-year-old female in no apparent distress at the time of my examination. HEENT: Head is atraumatic, normocephalic. Pupils are equal, round. Sclerae anicteric. Conjunctivae are clear. Mucous membranes of the mouth are moist. Neck is supple. There is no jugular venous distention. No carotid bruit is heard. LUNGS: Clear to auscultation no wheezes, rales or rhonchi. No chest wall tenderness is noted on palpation or with deep breathing. Diminished. HEART: Regular rate and rhythm without murmurs, rubs or gallops. S1 and S2 heard. ABDOMEN: Soft, nontender. Bowel sounds are heard. No organomegaly noted. EXTREMITIES: No evidence of peripheral edema and no calf tenderness noted. VASCULAR: Radial and dorsalis pedis pulses palpated, no evidence of clubbing. NEUROLOGIC: Patient is awake, alert and oriented x3. ASSESSMENT Paroxysmal atrial tachycardia Acute exacerbation of COPD Right lower lobe pneumonia History of coronary artery disease with stent placement, details unavailable at this time Ischemic cardiomyopathy, EF unknown. Patient states her heart muscle is weak. Hypertension, uncontrolled Dyslipidemia COPD Leukocytosis Hypomagnesemia Anemia s/p blood transfusion Acute kidney injury, diuretics have been held since admission. Nephrology is following. PLAN Increase coreg to 50 mg BID. Repeat chest xray. Electrolyte replacement per protocol. Check TSH. Obtain 2D echocardiogram and doppler study to assess cardiac structure and function. Obtain records from her primary stopperer assembler for clarification of her history. Interrogate ICD from [employer], request that the rep talk with Dr. Malhotra at the time of interrogation for possibly adjustments. Further recommendations to follow based on clinical course. Thank you kindly for this consultation. Nurse Practitioner note has been reviewed, I agree with a documented findings and plan of care. Patient was seen and examined. 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 History of Any Multi-Drug Resistant Organisms: None Reported Past Surgical History: AICD, Appendectomy, Back Surgery, Cholecystectomy, Heart Catheterization, Pacemaker Additional Past Surgical History / Comment(s): AICD/pacer, low back surgery, R kidney stented, colonoscopies/benign polypectomy, R eye cataract laser surgery, Past Anesthesia/Blood Transfusion Reactions: No Reported Reaction Additional Past Anesthesia/Blood Transfusion Reaction / Comment(s): Pt states she has received blood before without reaction. Type of Cardiac Device: Permanent Pacemaker, AICD Device Placement Date:: 2015 Smoking Status: Current every day smoker - Past Family History Father History Unknown: Yes Mother Family Medical History: Cancer Additional Family Medical History / Comment(s): Mother had colon cancer. Sghe at the age of 82 yrs. Medications and Allergies Home Medications Medication Instructions Recorded Confirmed Type Aspirin [Adult Low Dose Aspirin EC] 81 mg PO DAILY 03/21/18 03/22/18 History Carvedilol [Coreg] 25 mg PO BID 03/21/18 03/22/18 History Clopidogrel [Plavix] 75 mg PO DAILY 03/21/18 03/22/18 History Sertraline [Zoloft] 25 mg PO DAILY 03/21/18 03/22/18 History Simvastatin 40 mg PO HS 03/21/18 03/22/18 History clonazePAM [KlonoPIN] 0.5 mg PO Q8H PRN 03/21/18 03/22/18 History traMADol HCl [Ultram] 50 mg PO Q6HR PRN 03/21/18 03/22/18 History Allopurinol [Zyloprim] 100 mg PO DAILY 03/22/18 03/22/18 History Spironolactone-Hctz 25-25Mg 1 tab PO DAILY 03/22/18 03/22/18 History [Aldactazide 25-25Mg] predniSONE 20 mg PO DAILY 03/22/18 03/22/18 History Allergies Allergy/AdvReac Type Severity Reaction Status Date / Time Penicillins Allergy Nausea & Verified 03/22/18 09:38 Vomiting & Diarrhea Physical Exam Vitals: Vital Signs Temp Pulse Resp BP Pulse Ox 03/29/18 05:16 98.6 F 94 16 175/86 93 L 03/29/18 02:34 105 H 186/84 03/28/18 22:45 98.6 F 105 H 17 173/79 97 03/28/18 21:28 98.1 F 90 16 170/76 96 03/28/18 19:04 98.4 F 118 H 17 176/81 97 Intake and Output 03/28/18 03/29/18 03/29/18 22:59 06:59 14:59 Other: Voiding Method Toilet # Voids 1 2 Results 03/29/18 06:59 03/29/18 06:59 CBC 03/29/18 Range/Units 06:59 WBC 12.4 H (3.8-10.6) k/uL RBC 3.00 L (3.80-5.40) m/uL Hgb 8.6 L (11.4-16.0) gm/dL Hct 28.9 L (34.0-46.0) % Plt Count 425 (150-450) k/uL Comprehensive Metabolic Panel 03/29/18 Range/Units 06:59 Sodium 141 (137-145) mmol/L Potassium 4.1 (3.5-5.1) mmol/L Chloride 108 H (98-107) mmol/L Carbon Dioxide 29 (22-30) mmol/L BUN 18 H (7-17) mg/dL Creatinine 0.72 (0.52-1.04) mg/dL Glucose 74 (74-99) mg/dL Calcium 8.6 (8.4-10.2) mg/dL Current Medications Generic Name Dose Route Start Last Admin Trade Name Freq PRN Reason Stop Dose Admin Albuterol/Ipratropium 3 ml 03/22/18 12:53 03/26/18 10:53 Duoneb 0.5 Mg-3 Mg/3 Ml Soln INHALATION 3 ml RT-QID PRN Administration Shortness Of Breath Or Wheezing Allopurinol 100 mg 03/23/18 09:00 03/29/18 09:10 Zyloprim PO 100 mg DAILY DELICIA Administration Atorvastatin Calcium 20 mg 03/22/18 21:00 03/28/18 22:00 Lipitor PO 20 mg HS DELICIA Administration Budesonide/Formoterol Fumarate 2 puff 03/22/18 20:00 03/29/18 07:06 Symbicort 160-4.5 Mcg Inhaler INHALATION 2 puff RT-BID DELICIA Administration Carvedilol 50 mg 03/29/18 17:30 Coreg PO BID-W/MEALS DELICIA Clonazepam 0.5 mg 03/21/18 23:29 03/29/18 08:05 Klonopin PO 0.5 mg Q6HR PRN Administration Anxiety Darbepoetin Herson 40 mcg 03/23/18 13:00 03/23/18 14:16 Aranesp SQ 40 mcg Q7D DELICIA Administration Docusate Sodium 100 mg 03/26/18 09:30 03/29/18 08:06 Colace PO Not Given BID DELICIA Hydralazine HCl 10 mg 03/28/18 09:53 03/29/18 08:16 Apresoline IVP 10 mg Q4HR PRN Administration Blood Pressure - High Hydralazine HCl 100 mg 03/29/18 16:00 Apresoline PO TID [facility] Ceftriaxone Sodium 1,000 mg/ 50 mls @ 100 mls/hr 03/25/18 09:00 03/29/18 08: 06 Sodium Chloride IVPB 100 mls/hr Q24HR DELICIA Administration Sodium Chloride 500 mls @ 20 mls/hr 03/24/18 18:00 03/28/18 16:34 Saline 0.9% IV 20 mls/hr .Q24H DELICIA Administration Miscellaneous Information 1 each 03/21/18 21:27 Pneumonia Protocol Utilized PO ONCE PRN Per Protocol Miscellaneous Information 1 each 03/24/18 06:50 Magnesium Per Protocol MISCELLANE DAILY PRN Per Protocol Protocol Miscellaneous Information 1 each 03/26/18 07:33 Phosphorus Per Protocol MISCELLANE DAILY PRN Per Protocol Protocol Prednisone 40 mg 03/24/18 17:15 03/29/18 08:06 PO 40 mg DAILY DELICIA Administration Sertraline HCl 25 mg 03/23/18 09:00 03/29/18 09:10 Zoloft PO 25 mg DAILY DELICIA Administration Tramadol HCl 50 mg 03/21/18 23:29 03/29/18 08:04 Ultram PO 50 mg Q6HR PRN Administration Pain Intake and Output 03/28/18 03/29/18 03/29/18 22:59 06:59 14:59 Other: Voiding Method Toilet # Voids 1 2 03/29/18 06:59 03/29/18 06:59 <Willam Malhotra - Last Filed: 03/29/18 17:36> Physical Exam Vitals: Vital Signs Temp Pulse Pulse Pulse Pulse Pulse Pulse 03/29/18 15:11 119 H 114 H 126 H 108 H 107 H 03/29/18 12:01 98.0 F 96 03/29/18 12:00 98.0 F 96 03/29/18 05:16 98.6 F 94 03/29/18 02:34 105 H 03/28/18 22:45 98.6 F 105 H 03/28/18 21:28 98.1 F 90 03/28/18 19:04 98.4 F 118 H Resp BP Pulse Ox Pulse Ox Pulse Ox Pulse Ox Pulse Ox 03/29/18 15:11 91 L 84 L 86 L 86 L 03/29/18 12:01 16 140/65 88 L 03/29/18 12:00 16 140/65 88 L 03/29/18 05:16 16 175/86 93 L 03/29/18 02:34 186/84 03/28/18 22:45 17 173/79 97 03/28/18 21:28 16 170/76 96 10/21/18 19:04 17 176/81 97 Pulse Ox 03/29/18 15:11 84 L 03/29/18 12:01 03/29/18 12:00 03/29/18 05:16 03/29/18 02:34 03/28/18 22:45 03/28/18 21:28 03/28/18 19:04 Intake and Output 03/29/18 03/29/18 03/29/18 06:59 14:59 22:59 Intake Total 100 Balance 100 Intake: Intake, IV Titration 100 Amount Magnesium Sulfate-D5w Pmx 100 1 gm In Dextrose/Water 1 100ml.bag @ 100 mls/hr IVPB ONCE ONE Rx#: [id number] Other: Voiding Method Toilet # Voids 2 Results 03/29/18 06:59 03/29/18 06:59 CBC 03/29/18 Range/Units 06:59 WBC 12.4 H (3.8-10.6) k/uL RBC 3.00 L (3.80-5.40) m/uL Hgb 8.6 L (11.4-16.0) gm/dL Hct 28.9 L (34.0-46.0) % Plt Count 425 (150-450) k/uL Comprehensive Metabolic Panel 03/29/18 Range/Units 06:59 Sodium 141 (137-145) mmol/L Potassium 4.1 (3.5-5.1) mmol/L Chloride 108 H (98-107) mmol/L Carbon Dioxide 29 (22-30) mmol/L BUN 18 H (7-17) mg/dL Creatinine 0.72 (0.52-1.04) mg/dL Glucose 74 (74-99) mg/dL Calcium 8.6 (8.4-10.2) mg/dL Current Medications Generic Name Dose Route Start Last Admin Trade Name Freq PRN Reason Stop Dose Admin Albuterol/Ipratropium 3 ml 03/22/18 12:53 03/26/18 10:53 Duoneb 0.5 Mg-3 Mg/3 Ml Soln INHALATION 3 ml RT-QID PRN Administration Shortness Of Breath Or Wheezing Allopurinol 100 mg 03/23/18 09:00 03/29/18 09:10 Zyloprim PO 100 mg DAILY DELICIA Administration Atorvastatin Calcium 20 mg 03/22/18 21:00 03/28/18 22:00 Lipitor PO 20 mg HS DELICIA Administration Budesonide/Formoterol Fumarate 2 puff 03/22/18 20:00 03/29/18 07:06 Symbicort 160-4.5 Mcg Inhaler INHALATION 2 puff RT-BID DELICIA Administration Carvedilol 50 mg 03/29/18 17:30 03/29/18 17:11 Coreg PO 50 mg BID-W/MEALS DELICIA Administration Clonazepam 0.5 mg 03/21/18 23:29 03/29/18 08:05 Klonopin PO 0.5 mg Q6HR PRN Administration Anxiety Darbepoetin Herson 40 mcg 03/23/18 13:00 03/23/18 14:16 Aranesp SQ 40 mcg Q7D DELICIA Administration Docusate Sodium 100 mg 03/26/18 09:30 03/29/18 08:06 Colace PO Not Given BID DELICIA Hydralazine HCl 10 mg 03/28/18 09:53 03/29/18 08:16 Apresoline IVP 10 mg Q4HR PRN Administration Blood Pressure - High Hydralazine HCl 100 mg 03/29/18 16:00 03/29/18 17:09 Apresoline PO 100 mg TID DELICIA Administration Ceftriaxone Sodium 1,000 mg/ 50 mls @ 100 mls/hr 03/25/18 09:00 03/29/18 08: 06 Sodium Chloride IVPB 100 mls/hr Q24HR DELICIA Administration Sodium Chloride 500 mls @ 20 mls/hr 03/24/18 18:00 03/29/18 17:16 Saline 0.9% IV 20 mls/hr .Q24H DELICIA Administration Miscellaneous Information 1 each 03/21/18 21:27 Pneumonia Protocol Utilized PO ONCE PRN Per Protocol Miscellaneous Information 1 each 03/24/18 06:50 Magnesium Per Protocol MISCELLANE DAILY PRN Per Protocol Protocol Miscellaneous Information 1 each 03/26/18 07:33 Phosphorus Per Protocol MISCELLANE DAILY PRN Per Protocol Protocol Prednisone 40 mg 03/24/18 17:15 03/29/18 08:06 PO 40 mg DAILY DELICIA Administration Sertraline HCl 25 mg 03/23/18 09:00 03/29/18 09:10 Zoloft PO 25 mg DAILY DELICIA Administration Temazepam 7.5 mg 03/29/18 11:56 Restoril PO HS PRN Insomnia Tramadol HCl 50 mg 03/21/18 23:29 03/29/18 14:22 Ultram PO 50 mg Q6HR PRN Administration Pain Intake and Output 03/29/18 03/29/18 03/29/18 06:59 14:59 22:59 Intake Total 100 Balance 100 Intake: Intake, IV Titration 100 Amount Magnesium Sulfate-D5w Pmx 100 1 gm In Dextrose/Water 1 100ml.bag @ 100 mls/hr IVPB ONCE ONE Rx#: [id number] Other: Voiding Method Toilet # Voids 2 03/29/18 06:59 03/29/18 06:59
--- NOTE | 2018-03-29 14:12 | XR ---
EXAMINATION TYPE: XR chest 2V DATE OF EXAM: 03/29/2018 COMPARISON: 03/24/2018 TECHNIQUE: PA and lateral views submitted. HISTORY: Shortness of breath FINDINGS: Hyperinflation suggests COPD and there is diffuse osteopenia. Cardiac device noted. Bilateral consoli dation and pleural effusion stable. Heart size stable. Atherosclerotic change aorta. IMPRESSION: 1. COPD with stable bilateral infiltrate and small effusion. Mild central venous congestion in the di fferential.
[2018-03-29] MEDS: hydrALAZINE HCL 50 MG TAB PO SCH ×2 (17:09→21:02)
[2018-03-29] MEDS: SODIUM CHLORIDE 0.9% 500 ML 500 ML IV SCH (17:16)
--- NOTE | 2018-03-29 17:43 | P.PCN ---
Preoperative Diagnosis: Patient interviewed and examined Patient is a history of cardio myopathy status post Bi V pacing [employer] biventricular ICD implanted in April 2017 at [facility]/ Dr Pitts Telemetry strips reveal Atrial tachycardia with aberrancy, nonsustained Slow ventricular rhythm/aVR Intermittent Bi V pacing with pseudofusion, reduced by ventricle pacing percentage The parents plicae was interrogated today, [employer] Ilivia Programmed DDD/biventricular-MPP Atrial pacing percentage 1%, P waves 2.3 mV pacing threshold 0.6. 0.4 ms pacing impedance of 477 ohms. RV pacing percentage 84% R waves 10.8 mV, pacing threshold 0.6 was a 0.5 ms pacing impedance of 448 ohms LV sensing 4.4 mV, pacing threshold 0.8 V at 1 ms and pacing impedance of 318 ohms. Shocking impedance 59 ohms No shocks When the telemetry strips and twelve-lead ECGs are reviewed the actual Bi V pacing percentage of. Low and the device was interrogated and reprogrammed trigger more posterior and on to sense RV intrinsic, as well as PVCs MPP configuration reviewed for biventricular pacing AV delay shortened Further plan Increase the dose of carvedilol to 50 mg twice daily. The patient's blood pressure and heart rate controlled at this Patient had an elevated BUN and creatinine and therefore digoxin is not being prescribed The other option is high dose beta blockers such as 400 mg of metoprolol succinate instead of carvedilol Tomorrow we will add angiotensin receptor blockers When the patient was admitted creatinine was 2.47 with is a steady improvement to 1.68 then to 1.25 and now it is incompletely normal range Discussed with nurse practitioner
--- NOTE | 2018-03-29 19:28 | ECHOF ---
Referral Reason:hx cardiomyopathy, arrhythmia MEASUREMENTS -------- HEIGHT: 149.9 cm WEIGHT: 46.7 kg BP: 175/86 RVIDd: 2.8 cm (< 3.3) IVSd: 0.9 cm (0.6 - 1.1) LVIDd: 3.6 cm (3.9 - 5.3) LVPWd: 0.9 cm (0.6 - 1.1) IVSs: 1.3 cm LVIDs: 2.6 cm LVPWs: 1.3 cm LA Diam: 2.7 cm (2.7 - 3.8) LAESV Index (A-L): 19.56 ml/m Ao Diam: 2.7 cm (2.0 - 3.7) AV Cusp: 1.6 cm (1.5 - 2.6) MV EXCURSION: 11.280 mm (> 18.000) MV EF SLOPE: 50 mm/s (70 - 150) EPSS: 0.4 cm MV E Ervin: 0.79 m/s MV DecT: 326 ms MV A Ervin: 1.08 m/s MV E/A Ratio: 0.74 RAP: 5.00 mmHg RVSP: 37.58 mmHg FINDINGS -------- Sinus rhythm. This was a technically good study. The left ventricular size is normal. Left ventricular wall thickness is normal. Overall left vent ricular systolic function is normal with, an EF between 60 - 65 %. The right ventricle is normal in size. Normal LA size by volume 22+/-6 ml/m2. The right atrium is normal in size. There is mild aortic valve sclerosis. The mitral valve leaflets are mildly thickened. Mild mitral annular calcification present. Mild m itral regurgitation is present. Mild tricuspid regurgitation present. There is mild pulmonary hypertension. The right ventricular systolic pressure, as measured by Doppler, is 37.58mmHg. The pulmonic valve was not well visualized. The aortic root size is normal. Normal inferior vena cava with normal inspiratory collapse consistent with estimated right atrial pre ssure of 5 mmHg. The inferior vena cava is mildly dilated. There is no pericardial effusion. CONCLUSIONS -------- 1. Sinus rhythm. 2. This was a technically good study. 3. The left ventricular size is normal. 4. Left ventricular wall thickness is normal. 5. Overall left ventricular systolic function is normal with, an EF between 60 - 65 %. 6. The right ventricle is normal in size. 7. Normal LA size by volume 22+/-6 ml/m2. 8. The right atrium is normal in size. 9. There is mild aortic valve sclerosis. 10. The mitral valve leaflets are mildly thickened. 11. Mild mitral annular calcification present. 12. Mild mitral regurgitation is present. 13. Mild tricuspid regurgitation present. 14. There is mild pulmonary hypertension. 15. The right ventricular systolic pressure, as measured by Doppler, is 37.58mmHg. 16. The pulmonic valve was not well visualized. 17. The aortic root size is normal. 18. Normal inferior vena cava with normal inspiratory collapse consistent with estimated right atrial pressure of 5 mmHg. 19. The inferior vena cava is mildly dilated. 20. There is no pericardial effusion. CORROSION CONTROL FITTER: Sanjana Frank RDCS
[2018-03-29] MEDS: ATORVASTATIN 20 MG TAB PO SCH (21:02)
--- NOTE | 2018-03-29 21:31 | PN ---
PROGRESS NOTE DATE OF SERVICE: 03/29/2018 This 77-year-old was admitted with COPD exacerbation also had anemia. After transfusion, seems to be stabilized at this time. Patient has good features of possible GI bleed. Chest x-ray showed bilateral stable findings. Cardiology is following the patient closely. Medications adjusted at this time. No chest pain. No palpitations. No fever. EXAM: Alert and orient x3. Pulse is 90, blood pressure 140/62, respirations 20, temperature is normal. Pulse ox is 86 percent on 4 L. HEENT: Conjunctivae normal. NECK: No jugular venous distention. CARDIOVASCULAR: S1, S2 muffled. RESPIRATORY: Breath sounds diminished in the bases. A few scattered rhonchi and crackles. ABDOMEN: Soft, nontender. LEGS: No edema. NERVOUS SYSTEM: No focal deficits. LABS: WBC 12, hemoglobin is 8.6. Stool OB is positive. ASSESSMENT: 1. Chronic obstructive pulmonary disease exacerbation with acute right lower lobe pneumonia with possibly gram-negative. 2. Anemia, rule out acute GI bleed, status post transfusions. 3. Stool OB positive. 4. Possible SARS. 5. Possible viral gastroenteritis. 6. Cardiomyopathy. 7. Paroxysmal atrial tachycardia. 8. Ischemic cardiomyopathy. 9. Acute renal failure, prerenal azotemia. 10.Leukocytosis. 11.Hyperkalemia. 12.Hyponatremia. 13.Hyperlipidemia. 14.Hypertension. RECOMMENDATIONS AND DISCUSSION: I recommend to continue current management and symptomatic treatment. Otherwise, closely follow. Medications adjustment per Cardiology. Guarded prognosis because of multiple complex medical issues. Further recommendations to follow. MMODL / IJN: [id number] /
--- NOTE | 2018-03-30 00:26 | P.CONS ---
History of Present Illness - Reason for Consult Consult date: 03/29/18 Stool positive for occult blood Requesting physician: Joy Gracia - Chief Complaint Abdominal pain - History of Present Illness The patient is a 77-year-old female with medical history significant for CVA, hypertension, osteoarthritis, CAD, prior AICD placement and constipation at baseline presented with complaints of abdominal pain and diarrhea. Per the patient she had 10 days of abdominal pain prior to presentation. The patient was reporting diarrhea which has subsequently improved since admission the patient reporting 2-3 bowel movements yesterday and 3 bowel movements today. The patient denies any overt signs or symptoms of GI bleeding with no hematochezia, melena, hematemesis or coffee-ground emesis. The patient is currently being treated for acute kidney injury. On presentation the patient was found to be anemic with a normocytic MCV of 92. Hemoglobin had fallen to 6.4 and was transfused to 8.3. The patient also had stool for occult blood testing which was positive. Iron studies were suggestive of an iron deficiency anemia. She reports that her last EGD and colonoscopy were approximately 2-3 years ago in [place]. She reports that at baseline she has constipation which she uses MiraLAX and stool softeners to treat. On presentation to the hospital she had a CT of the abdomen which showed a left renal cysts, vascular disease, and patchy bilateral lower lung infiltrates. Review of Systems REVIEW OF SYSTEMS: CARDIO: Denies any chest pain or palpitations. PULMONARY: Denies any shortness of breath or wheezing. GENITOURINARY: No dysuria or hematuria. MUSCULOSKELETAL: No weakness reported. SKIN: Denies any new rashes or lesions, jaundice or pallor. PSYCHIATRIC: Denies any depression or anxiety. NEUROLOGY: Denies headache, denies any new focal deficits. EARS: No tinnitus, discharge or new hearing loss. NOSE: No discharge or congestion. EYES: No pain in eyes or change in vision. CONSTITUTIONAL: No recent weight loss. No fever, chills, night sweats. Past Medical History Past Medical History: CVA/TIA, Eye Disorder, Hearing Disorder / Deafness, Hyperlipidemia, Hypertension, Osteoarthritis (OA), Renal Disease Additional Past Medical History / Comment(s): CVA with blindness left eye, Pt states she has renal disease-L kidney is nonfunctioning and R kidney functions at about 80% and has been stented/ sees carpenters helper every 6 months, irregular heart beat, "bottom of my heart doesn't work well"-pt has AICD/pacer, gout bilateral feet, arthritis bilateral hands and legs, [place] bilaterally, weight loss of about 15 pounds recently. History of Any Multi-Drug Resistant Organisms: None Reported Past Surgical History: AICD, Appendectomy, Back Surgery, Cholecystectomy, Heart Catheterization, Pacemaker Additional Past Surgical History / Comment(s): AICD/pacer, low back surgery, R kidney stented, colonoscopies/benign polypectomy, R eye cataract laser surgery, Past Anesthesia/Blood Transfusion Reactions: No Reported Reaction Additional Past Anesthesia/Blood Transfusion Reaction / Comm: Pt states she has received blood before without reaction. Type of Cardiac Device: Permanent Pacemaker, AICD Device Placement Date:: 2015 Smoking Status: Current every day smoker - Past Family History Father History Unknown: Yes Mother Family Medical History: Cancer Additional Family Medical History / Comment(s): Mother had colon cancer. Sghe at the age of 82 yrs. Medications and Allergies Home Medications Medication Instructions Recorded Confirmed Type Aspirin [Adult Low Dose Aspirin EC] 81 mg PO DAILY 03/21/18 03/22/18 History Carvedilol [Coreg] 25 mg PO BID 03/21/18 03/22/18 History Clopidogrel [Plavix] 75 mg PO DAILY 03/21/18 03/22/18 History Sertraline [Zoloft] 25 mg PO DAILY 03/21/18 03/22/18 History Simvastatin 40 mg PO HS 03/21/18 03/22/18 History clonazePAM [KlonoPIN] 0.5 mg PO Q8H PRN 03/21/18 03/22/18 History traMADol HCl [Ultram] 50 mg PO Q6HR PRN 03/21/18 03/22/18 History Allopurinol [Zyloprim] 100 mg PO DAILY 03/22/18 03/22/18 History Spironolactone-Hctz 25-25Mg 1 tab PO DAILY 03/22/18 03/22/18 History [Aldactazide 25-25Mg] predniSONE 20 mg PO DAILY 03/22/18 03/22/18 History Allergies Allergy/AdvReac Type Severity Reaction Status Date / Time Penicillins Allergy Nausea & Verified 03/22/18 09:38 Vomiting & Diarrhea Physical Exam Vitals: Vital Signs Temp Pulse Pulse Pulse Pulse Pulse Pulse 03/29/18 21:00 98.1 F 86 03/29/18 15:11 119 H 114 H 126 H 108 H 107 H 03/29/18 12:01 98.0 F 96 03/29/18 12:00 98.0 F 96 03/29/18 05:16 98.6 F 94 03/29/18 02:34 105 H Resp BP Pulse Ox Pulse Ox Pulse Ox Pulse Ox Pulse Ox 03/29/18 21:00 16 154/77 97 03/29/18 15:11 91 L 84 L 86 L 86 L 03/29/18 12:01 16 140/65 88 L 03/29/18 12:00 16 140/65 88 L 03/29/18 05:16 16 175/86 93 L 03/29/18 02:34 186/84 Pulse Ox 03/29/18 21:00 03/29/18 15:11 84 L 03/29/18 12:01 03/29/18 12:00 03/29/18 05:16 03/29/18 02:34 Intake and Output 03/29/18 03/29/18 03/30/18 14:59 22:59 06:59 Intake Total 100 Balance 100 Intake: Intake, IV Titration 100 Amount Magnesium Sulfate-D5w Pmx 100 1 gm In Dextrose/Water 1 100ml.bag @ 100 mls/hr IVPB ONCE ONE Rx#: [id number] Other: # Voids 1 On physical examination, patient appears comfortable in no apparent distress. HEAD: Normocephalic, atraumatic. EYES: No scleral icterus. No conjunctival injection. MOUTH: No lesions, tongue midline. NECK: Trachea midline, no gross abnormalities. CHEST: Clear to auscultation with no wheezing or rhonchi appreciated. HEART: Regular rate and rhythm. ABDOMEN: Soft, obese. Bowel sounds are positive. No organomegaly. No guarding or rigidity. EXTREMITIES: No pedal edema. SKIN: No rashes, no jaundice. NEUROLOGIC: Alert and oriented x3. No focal deficits. Results CBC & Chem 7: 03/29/18 06:59 03/29/18 06:59 Labs: Abnormal Lab Results - Last 24 Hours (Table) 03/29/18 03/29/18 Range/Units 06:59 06:59 WBC 12.4 H (3.8-10.6) k/uL RBC 3.00 L (3.80-5.40) m/uL Hgb 8.6 L (11.4-16.0) gm/dL Hct 28.9 L (34.0-46.0) % MCHC 29.9 L (31.0-37.0) g/dL RDW 19.9 H (11.5-15.5) % Neutrophils # 10.4 H (1.3-7.7) k/uL Chloride 108 H (98-107) mmol/L BUN 18 H (7-17) mg/dL CT scan - abdomen: report reviewed (CT abdomen suggestive of left renal cysts, vascular disease and bilateral patchy lower lung infiltrates.) Assessment and Plan (1) Normocytic anemia Narrative/Plan: Patient with normocytic anemia with iron indices suggestive of deficiency. Denies any overt signs or symptoms of GI bleeding but did have a positive test for occult blood in her stool. Current Visit: Yes Status: Acute Code(s): D64.9 - ANEMIA, UNSPECIFIED SNOMED Code(s): 682700979 (2) Positive occult stool blood test Narrative/Plan: As above. Current Visit: Yes Status: Acute Code(s): R19.5 - OTHER FECAL ABNORMALITIES SNOMED Code(s): 76236592 Plan: Supportive care Continue fluid and electrolyte supplementation Continue to monitor hemoglobin and transfuse as needed Continue to monitor stool output Appreciate cardiology and nephrology input We'll discuss with the patient the need for endoscopic evaluation, and if agreeable we'll try and schedule the patient for EGD and colonoscopy Thank you for allowing us to participate in the care of this patient, we will continue to follow
[2018-03-30] MEDS: predniSONE 20 MG TAB PO SCH (07:57)
[2018-03-30] MEDS: CARVEDILOL 12.5 MG TAB PO SCH ×2 (07:57→16:31)
[2018-03-30] MEDS: hydrALAZINE HCL 50 MG TAB PO SCH ×2 (07:58→16:31)
[2018-03-30] MEDS: SERTRALINE 25 MG TAB PO SCH (07:58)
[2018-03-30] MEDS: ALLOPURINOL 100 MG TAB PO SCH (07:58)
[2018-03-30] MEDS: DOCUSATE 100 MG CAP PO SCH (07:58)
[2018-03-30] MEDS: SYMBICORT 160-4.5 MCG INHALER INHALATION SCH (08:02)
[2018-03-30 08:23] LABS: Anisocytosis Moderate; Basophils % (A) 0 %; Eosinophils # (A) 0.1 k/uL (0-0.7); Eosinophils % (A) 1 %; HCT 32.2 % (34.0-46.0); HGB 9.3 gm/dL (11.4-16.0); Hypochromasia Marked; Lymphocytes # (A) 1.1 k/uL (1.0-4.8); Lymphocytes % (A) 9 %; MCH 28.5 pg (25.0-35.0); MCV 98.5 fL (80.0-100.0); Macrocytosis Moderate; Mean Platelet Volume 7.1; Monocytes # (A) 0.5 k/uL (0-1.0); Monocytes % (A) 4 %; Neutrophils # (A) 10.1 k/uL (1.3-7.7); Neutrophils % (A) 85 %; Platelet Count 392 k/uL (150-450); RBC 3.27 m/uL (3.80-5.40); RDW 20.3 % (11.5-15.5); WBC 11.9 k/uL (3.8-10.6)
[2018-03-30 08:48] LABS: Calcium 8.7 mg/dL (8.4-10.2); Magnesium 1.6 mg/dL (1.6-2.3)
[2018-03-30 09:04] LABS: Potassium 4.4 mmol/L (3.5-5.1)
[2018-03-30] MEDS: traMADol 50 MG TAB PO PRN ×2 (10:00→16:35)
--- NOTE | 2018-03-30 10:08 | P.PN ---
Subjective Patient is seen in follow-up for acute kidney injury on chronic kidney disease. RUY has resolved. Patient follows with industrial energy engineer out of [facility]. 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 She is noted to have atrophic right kidney. Diarrhea has improved. Denies chest pain or shortness of breath. She did receive a unit of blood on 03/26. Hemoglobin 9.3 today. Oral intake is good. No active bleeding noted. BP better but still on the higher side. Vital signs are stable. General: The patient appeared well nourished and normally developed. HEENT: Head exam is unremarkable. Neck is without jugular venous distension. LUNGS: Lungs are clear to auscultation and percussion. Breath sounds decreased. HEART: Rate and Rhythm are regular. First and second heart sounds normal. No murmurs, rubs or gallops. ABDOMEN: Abdominal exam reveals normal bowel sounds. Non-tender and non- distended. No evidence of peritonitis. EXTREMITITES: No clubbing, cyanosis, or edema. Objective - Vital Signs Vital signs: Vital Signs Temp 98 F 03/30/18 08:00 Pulse 94 03/30/18 08:00 Resp 18 03/30/18 08:00 BP 154/84 03/30/18 08:00 Pulse Ox 87 L 03/30/18 09:46 Intake & Output 03/29/18 03/30/18 03/30/18 18:59 06:59 18:59 Intake Total 100 Balance 100 Intake: Intake, IV Titration 100 Amount Magnesium Sulfate-D5w Pmx 100 1 gm In Dextrose/Water 1 100ml.bag @ 100 mls/hr IVPB ONCE ONE Rx#: [id number] Other: Voiding Method Toilet # Voids 1 - Labs CBC & Chem 7: 03/30/18 07:47 03/30/18 07:47 Labs: Abnormal Lab Results - Last 24 Hours (Table) 03/30/18 03/30/18 Range/Units 07:47 07:47 WBC 11.9 H (3.8-10.6) k/uL RBC 3.27 L (3.80-5.40) m/uL Hgb 9.3 L (11.4-16.0) gm/dL Hct 32.2 L (34.0-46.0) % MCHC 29.0 L (31.0-37.0) g/dL RDW 20.3 H (11.5-15.5) % Neutrophils # 10.1 H (1.3-7.7) k/uL BUN 20 H (7-17) mg/dL Microbiology - Last 24 Hours (Table) 03/29/18 07:00 Gram Stain - Preliminary Sputum Assessment and Plan Plan: Assessment: 1. Nonoliguric acute kidney injury mostly prerenal secondary to intravascular volume depletion from diarrhea. Resolved. 2. Hyperkalemia secondary to acute kidney injury and Aldactone. Improved. 3. 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 Baseline creatinine near 1. Patient follows with industrial energy engineer out of [place]. 4. Nausea and vomiting along with diarrhea likely related to viral gastroenteritis. Improved. 5. Atypical cyst noted on the left kidney. This will need to be monitored as an outpatient. 6. Hypertension with chronic kidney disease. Better but still on the higher side. Partially related to steroids. 7. Pneumonia maintained on antibiotics. 8. Anemia of chronic kidney disease. Severe iron deficiency noted. No active bleeding noted. Status post blood transfusion 03/26. Status post 3 doses of IV iron. 9. Hypomagnesemia from poor oral intake. 10. Hypophosphatemia from poor oral intake. Status post placement. Plan: Patient remains off IV fluids. Encourage oral intake. Avoid nephrotoxins. Continue to hold diuretics for now. Maintain Aranesp. Maintain current antihypertensives. Doses of both Coreg and hydralazine were increased yesterday. Replace Magnesium.
--- NOTE | 2018-03-30 10:24 | P.PN ---
Subjective Progress Note Date: 03/30/18 Principal diagnosis: Abdominal pain Presently denies abdominal pain no diarrhea. Tolerating diet. Hemoglobin 9.3. White count 11.9. EGD: 2 years ago in [place]. History of cardiomyopathy bi V pacing maintained on dual antiplatelet therapy. Objective - Vital Signs Vital signs: Vital Signs Temp 98 F 03/30/18 08:00 Pulse 94 03/30/18 08:00 Resp 18 03/30/18 08:00 BP 154/84 03/30/18 08:00 Pulse Ox 87 L 03/30/18 09:46 Intake & Output 03/29/18 03/30/18 03/30/18 18:59 06:59 18:59 Intake Total 100 Balance 100 Intake: Intake, IV Titration 100 Amount Magnesium Sulfate-D5w Pmx 100 1 gm In Dextrose/Water 1 100ml.bag @ 100 mls/hr IVPB ONCE ONE Rx#: [id number] Other: Voiding Method Toilet # Voids 1 - Exam General appearance: The patient is alert, oriented, in no acute distress. HET: Head is normocephalic and atraumatic. Pupils are equal and reactive. Oropharynx is clear without lesions. Neck: Supple without lymphadenopathy. Trachea midline. Heart: S1 S2. Regular rate and rhythm. Lungs: No crackles or wheezes are heard. Abdomen: Soft, nontender, nondistended with bowel sounds. No peritoneal signs. No palpable organomegaly or masses. Extremities: Normal skin color and turgor. No cyanosis, rash, ulceration, clubbing, or edema. Radial and pedal pulses are 2/4 bilaterally. Neurological: No focal deficits. Strength and sensation are grossly intact. - Labs CBC & Chem 7: 03/30/18 07:47 03/30/18 07:47 Labs: Abnormal Lab Results - Last 24 Hours (Table) 03/30/18 03/30/18 Range/Units 07:47 07:47 WBC 11.9 H (3.8-10.6) k/uL RBC 3.27 L (3.80-5.40) m/uL Hgb 9.3 L (11.4-16.0) gm/dL Hct 32.2 L (34.0-46.0) % MCHC 29.0 L (31.0-37.0) g/dL RDW 20.3 H (11.5-15.5) % Neutrophils # 10.1 H (1.3-7.7) k/uL BUN 20 H (7-17) mg/dL Microbiology - Last 24 Hours (Table) 03/29/18 07:00 Gram Stain - Preliminary Sputum Assessment and Plan (1) Normocytic anemia Current Visit: Yes Status: Acute Code(s): D64.9 - ANEMIA, UNSPECIFIED SNOMED Code(s): 229776495 (2) Positive occult stool blood test Current Visit: Yes Status: Acute Code(s): R19.5 - OTHER FECAL ABNORMALITIES SNOMED Code(s): 61547395 (3) AICD (automatic cardioverter/defibrillator) present Current Visit: Yes Status: Chronic Code(s): Z95.810 - PRESENCE OF AUTOMATIC (IMPLANTABLE) CARDIAC DEFIBRILLATOR SNOMED Code(s): 312599730 (4) Cardiomyopathy Current Visit: Yes Status: Chronic Code(s): I42.9 - CARDIOMYOPATHY, UNSPECIFIED SNOMED Code(s): 80690738 Plan: 1. Presently without abdominal pain. Patient is requesting outpatient endoscopic exams; she verbalized she may follow up with her GI doctor in [place] after discharge; she is unsure. 2. Continue supportive measures. Discharge per medicine and consultants. Patient may follow up in the GI office after discharge for reevaluation. Assessment and plan a care discussed with Dr. Durham
[2018-03-30] MEDS: MAGNESIUM SULFATE-D5W PMX 1 GM in DEXTROSE/WATER 1 100ML.BAG IVPB SCH ×2 (11:24→13:33)
[2018-03-30] MEDS ORDERED: LOSARTAN 25 MG TAB PO SCH (11:30)
[2018-03-30 12:17] VITALS: BP 122/62; PULSE 81; RESP 16; TEMP 97.5
--- NOTE | 2018-03-30 13:23 | P.DS ---
Providers Date of admission: 03/21/18 21:33 Attending physician: Joy Gracia Consults: 03/21/18 21:27 Consult Physician Routine Consulting Provider: Antoine Carlos Consult Reason/Comments: Elevated BUNs Do you want consulting provider notified?: Already Contacted 03/28/18 23:03 Consult Physician Routine Consulting Provider: Jasper Srinivasan Consult Reason/Comments: run of [facility], asymptomatic evaluate pacemaker functioning Do you want consulting provider notified?: Yes, Notify in am Primary care physician: [facility] Course: 77-year-old female admitted for sepsis secondary to gastroenteritis. Initially was treated for possibility of pneumonia although my suspicion is extremely low that patient had pneumoniae do not believe patient will require any antibiotics upon discharge. She was also treated for COPD exacerbation patient will be discharged on weaning dose of steroids. A she normally doesn't wear oxygen may require home oxygen. Patient was evaluated by cardiology because of tachycardia and they're increasing the dose of Coreg and HUNG inhibitor is also being added for her blood pressure. Patient is otherwise clinically doing well will be discharged to subacute rehabilitation today. PHYSICAL EXAMINATION: GENERAL: The patient is alert and oriented x3, not in any acute distress. Thin built HEENT: Pupils are round and equally reacting to light. EOMI. No scleral icterus. No conjunctival pallor. Normocephalic, atraumatic. No pharyngeal erythema. No thyromegaly. CARDIOVASCULAR: S1 and S2 present. No murmurs, rubs, or gallops. PULMONARY: There may be very minimal faint wheeze fairly good air entry into bilateral lung nazario ABDOMEN: Soft, nontender, nondistended, normoactive bowel sounds. No palpable organomegaly. MUSCULOSKELETAL: No joint swelling or deformity. EXTREMITIES: No cyanosis, clubbing, or pedal edema. NEUROLOGICAL: Gross neurological examination did not reveal any focal deficits. SKIN: No rashes. Assessment and Plan Plan: -Systemic inflammatory response syndrome or sepsis: Probably secondary to viral gastroenteritis -Possible COPD with mild acute exacerbation -Acute renal failure prerenal azotemia and possibility of acute tubular necrosis nonoliguric from sepsis, improved now and her serum creatinine is 0.7 now patient will not be discharged on any diuretics will not require any diuretics -Leukocytosis due to assessment #1 -Hyperkalemia: Secondary to acute renal failure, Aldactone and hydrochlorothiazide was held -Hyponatremia hypervolemic hyponatremia expected to improve with IV fluids -Hyperlipidemia -Hypertension Patient Condition at Discharge: Fair Plan - Discharge Summary Discharge Rx Participant: No New Discharge Prescriptions: New Budesonide-Formot 160-4.5 Mcg [Symbicort 160-4.5 Mcg Inhaler] 2 puff INHALATION RT-BID puff Carvedilol [Coreg*] 50 mg PO BID-W/MEALS tab hydrALAZINE HCL [Apresoline] 100 mg PO TID tab Ipratropium-Albuterol Nebulize [Duoneb 0.5 mg-3 mg/3 ml Soln] 3 ml INHALATION RT-QID PRN ampul.neb PRN Reason: Shortness Of Breath Or Wheezing Losartan [Cozaar] 25 mg PO DAILY tab predniSONE 10 mg PO DAILY #30 tab Continue Sertraline [Zoloft] 25 mg PO DAILY Clopidogrel [Plavix] 75 mg PO DAILY Simvastatin 40 mg PO HS Allopurinol [Zyloprim] 100 mg PO DAILY traMADol HCl [Ultram] 50 mg PO Q6HR PRN #14 tab PRN Reason: Pain Discontinued clonazePAM [KlonoPIN] 0.5 mg PO Q8H PRN PRN Reason: Anxiety Aspirin [Adult Low Dose Aspirin EC] 81 mg PO DAILY Carvedilol [Coreg] 25 mg PO BID predniSONE 20 mg PO DAILY Spironolactone-Hctz 25-25Mg [Aldactazide 25-25Mg] 1 tab PO DAILY Discharge Medication List Clopidogrel [Plavix] 75 mg PO DAILY 03/21/18 [History] Sertraline [Zoloft] 25 mg PO DAILY 03/21/18 [History] Simvastatin 40 mg PO HS 03/21/18 [History] Allopurinol [Zyloprim] 100 mg PO DAILY 03/22/18 [History] Budesonide-Formot 160-4.5 Mcg [Symbicort 160-4.5 Mcg Inhaler] 2 puff INHALATION RT-BID puff 03/30/18 [Rx] Carvedilol [Coreg*] 50 mg PO BID-W/MEALS tab 03/30/18 [Rx] Ipratropium-Albuterol Nebulize [Duoneb 0.5 mg-3 mg/3 ml Soln] 3 ml INHALATION RT -QID PRN ampul.neb 10/23/18 [Rx] Losartan [Cozaar] 25 mg PO DAILY tab 03/30/18 [Rx] hydrALAZINE HCL [Apresoline] 100 mg PO TID tab 03/30/18 [Rx] predniSONE 10 mg PO DAILY #30 tab 03/30/18 [Rx] traMADol HCl [Ultram] 50 mg PO Q6HR PRN #14 tab 03/30/18 [Rx] Follow up Appointment(s)/Referral(s): Favio Davis DO [Primary Care Provider] - 04/09/18 1:00 pm Patient Instructions/Handouts: Prednisone (By mouth), Tramadol (By mouth), Sepsis (GEN), Pneumonia (DC) Activity/Diet/Wound Care/Special Instructions: patient would like flu shot prior to discharge home Discharge Disposition: TRANSFER TO SNF/ECF
[2018-03-30] MEDS: clonazePAM 0.5 MG TAB PO PRN (13:29)
[2018-03-30] MEDS: DARBEPOETIN ALFA 40 MCG/0.4 ML SYRINGE SQ SCH (13:29)
--- NOTE | 2018-03-30 13:53 | P.PN ---
Subjective Mrs. Burroughs is a pleasant 77-year-old female past medical history significant for coronary artery disease s/p stenting details unavailable at this time, hypertension, dyslipidemia, BiV pacemaker/IVD by [employer], COPD, CVA, chronic kidney disease, ischemic cardiomyopathy and chronic nicotine dependence. She follows with Dr. Pizarro in [place] for cardiology. ICD was interrogated yesterday and adjustments made and reprogrammed trigger more posterior and on to sense RV intrinsic, as well as PVCs, MPP configuration reviewed for biventricular pacing and AV delay shortened. A cardiogram obtained reveals preserved left ventricular systolic function with ejection fraction 60-65%, mild aortic valve sclerosis, mild MR, mild TR and mild pulmonary hypertension with an RVSP of 37.58 mmHg. Chest x-ray obtained reveals COPD with bilateral infiltrate and small effusion. TSH is 1.03, creatinine 0.76, magnesium 1.6, potassium 4.4, sodium 140, platelets 392, WBC 11.9 and hemoglobin 9.3. She has been seen in consultation by GI services and with a stable hemoglobin they're recommending she can be discharged to follow- up with her GI doctor in [place]. GENERAL: This is a 77-year-old female in no apparent distress at the time of my examination. NECK: No JVD. LUNGS: Clear to auscultation no wheezes, rales or rhonchi. No chest wall tenderness is noted on palpation or with deep breathing. Diminished. HEART: Regular rate and rhythm without murmurs, rubs or gallops. S1 and S2 heard. EXTREMITIES: No evidence of peripheral edema and no calf tenderness noted. ASSESSMENT Paroxysmal atrial tachycardia Acute exacerbation of COPD Right lower lobe pneumonia History of coronary artery disease with stent placement, details unavailable at this time Ischemic cardiomyopathy, EF unknown. Patient states her heart muscle is weak. Hypertension, uncontrolled Dyslipidemia COPD Leukocytosis Hypomagnesemia Anemia s/p blood transfusion Acute kidney injury, diuretics have been held since admission. Nephrology is following. Improved since admission. PLAN Add losartan 25 mg daily to her regimen. Follow up with with her primary eye care professional upon discharge. Check kidney function in 3 days after discharge. Stable from a cardiac perspective. We will continue to follow as needed, please call with further questions or concerns. Nurse Practitioner note has been reviewed, I agree with a documented findings and plan of care. Patient was seen and examined. Objective - Vital Signs Vital signs: Vital Signs Temp 98 F 03/30/18 08:00 Pulse 94 03/30/18 08:00 Resp 18 03/30/18 08:00 BP 154/84 03/30/18 08:00 Pulse Ox 87 L 03/30/18 09:46 Intake & Output 03/29/18 03/30/18 03/30/18 18:59 06:59 18:59 Intake Total 100 240 Balance 100 240 Intake: Intake, IV Titration 100 Amount Magnesium Sulfate-D5w Pmx 100 1 gm In Dextrose/Water 1 100ml.bag @ 100 mls/hr IVPB ONCE ONE Rx#: [id number] Oral 240 Other: Voiding Method Toilet # Voids 1 - Labs CBC & Chem 7: 03/30/18 07:47 03/30/18 07:47 Labs: Abnormal Lab Results - Last 24 Hours (Table) 03/30/18 03/30/18 Range/Units 07:47 07:47 WBC 11.9 H (3.8-10.6) k/uL RBC 3.27 L (3.80-5.40) m/uL Hgb 9.3 L (11.4-16.0) gm/dL Hct 32.2 L (34.0-46.0) % MCHC 29.0 L (31.0-37.0) g/dL RDW 20.3 H (11.5-15.5) % Neutrophils # 10.1 H (1.3-7.7) k/uL BUN 20 H (7-17) mg/dL Microbiology - Last 24 Hours (Table) 03/29/18 07:00 Gram Stain - Preliminary Sputum
[2018-03-30 15:07] VITALS: BMI 20.9
== END 2018-03-30 18:00 | disposition home health service (06) | DRG 871 ==
LOC: EC 18:10 → UNDOADMIN 21:33 → 3SCARD 21:33 → 2SICU 03-22 06:39 → 3NMEDONC 03-26 15:01
PROVIDERS: ADMIT Internal Medicine; ATTEND Internal Medicine
PROC: 30233N1 Transfusion of Nonautologous Red Blood Cells into Peripheral Vein, Percutaneous Approach (ICD-10-PCS; 2018-03-26)
PROC: 4A02XFZ Measurement of Cardiac Rhythm, External Approach (ICD-10-PCS; principal; 2018-03-29)
DX: A41.9 Sepsis, unspecified organism (principal); N17.0 Acute kidney failure with tubular necrosis; D62 Acute posthemorrhagic anemia; E87.1 Hypo-osmolality and hyponatremia; I47.1 Supraventricular tachycardia; J44.0 Chronic obstructive pulmonary disease with (acute) lower respiratory infection; J44.1 Chronic obstructive pulmonary disease with (acute) exacerbation; J81.1 Chronic pulmonary edema; D63.1 Anemia in chronic kidney disease; E78.5 Hyperlipidemia, unspecified; E83.39 Other disorders of phosphorus metabolism; E83.42 Hypomagnesemia; E86.9 Volume depletion, unspecified; E87.5 Hyperkalemia; E87.70 Fluid overload, unspecified; F17.200 Nicotine dependence, unspecified, uncomplicated; I69.398 Other sequelae of cerebral infarction; H54.40 Blindness, one eye, unspecified eye; H91.90 Unspecified hearing loss, unspecified ear; I12.9 Hypertensive chronic kidney disease with stage 1 through stage 4 chronic kidney disease, or unspecified chronic kidney disease; I25.10 Atherosclerotic heart disease of native coronary artery without angina pectoris; I25.5 Ischemic cardiomyopathy; I27.20 Pulmonary hypertension, unspecified; I08.3 Combined rheumatic disorders of mitral, aortic and tricuspid valves; I49.3 Ventricular premature depolarization; J84.10 Pulmonary fibrosis, unspecified; K59.00 Constipation, unspecified; N18.3 Chronic kidney disease, stage 3 (moderate); N28.1 Cyst of kidney, acquired; T38.0X5A Adverse effect of glucocorticoids and synthetic analogues, initial encounter; Z79.02 Long term (current) use of antithrombotics/antiplatelets; Z79.82 Long term (current) use of aspirin; Z79.899 Other long term (current) drug therapy; Z80.0 Family history of malignant neoplasm of digestive organs; Z95.5 Presence of coronary angioplasty implant and graft; Z95.810 Presence of automatic (implantable) cardiac defibrillator; Z88.0 Allergy status to penicillin; A08.4 Viral intestinal infection, unspecified
CPT/HCPCS: 36415; 71045; 71046; 74176; 80048; 80053; 80202; 81003; 82272; 82728; 83540; 83550; 83605; 83735; 84100; 84443; 84484; 85025; 85027; 85610; 85730; 86850; 86900; 86901; 86920; 87040; 87070; 87086; 87205; 87502; 90686; 93005; 93306; 94640; 94760; 96365; 96366; 96367; 96375; 99285

== ENCOUNTER → 2018-12-07 | Outpatient (CLI) | payer MEDICARE ==
--- NOTE | 2018-12-07 10:13 | US ---
EXAMINATION TYPE: US abdomen complete DATE OF EXAM: 12/07/2018 COMPARISON: NONE CLINICAL HISTORY: R19.00 Intra-abdominal and pelvic swelling. Cholecystectomy, left renal stent EXAM MEASUREMENTS: Liver Length: 14.8 cm Gallbladder Wall: Surgically absent CBD: 0.7 cm Spleen: 8.9 cm Right Kidney: 8.0 x 2.5 x 3.3 cm Left Kidney: 10.5 x 5.1 x 4.5 cm Pancreas: appears wnl Liver: wnl Gallbladder: Surgically absent Evidence for sonographic Russ's sign: no CBD: wnl Spleen: wnl Right Kidney: atrophic, echogenic, multiple cystic areas noted largest is complex = 3.1 x 2.5 x 2.8c m Left Kidney: cystic areas noted, largest is complex = 2.1 x 1.6 x 1.8cm Upper IVC: wnl Abd Aorta: calcifications noted IMPRESSION: 1. Hypoechoic lesions involving the kidneys suggestive of cysts. There is a area of septation thicken ing of the septum involving the right kidney. CT scan is recommended to assess for complicated cysts bilateral.
--- NOTE | 2018-12-07 10:22 | US ---
EXAMINATION TYPE: US pelvic complete DATE OF EXAM: 12/07/2018 COMPARISON: NONE CLINICAL HISTORY: R19.00 Intra-abdominal and pelvic swelling. Partial hysterectomy, soft tissue mass mid to right pelvis inferior to umbilicus TECHNIQUE: Transabdominal (TA) Date of LMP: unknown EXAM MEASUREMENTS: Uterus: Surgically absent Endometrial Stripe: Surgically absent Right Ovary: cm Left Ovary: unable to visualize 1. Uterus: Surgically absent, vaginal cuff = 0.5cm 2. Endometrium: Surgically absent 3. Right Ovary: cystic area = 2.2 x 1.8 x 1.9cm 4. Left Ovary: Obscured by overlying bowel gas 5. Bilateral Adnexa: appears wnl Scanned within area of concern, mid to right pelvis, isoechoic area = 5.6 x 1.8 x 4.8cm IMPRESSION: 1. There is a 2.2 cm right ovarian cyst. 2. Over the area of palpable abnormality there is a mixed echogenic mass measuring 5.6 cm. This likel y in the fatty component may be related to a lipoma. CAT scan is been reviewed dating back to 2017 ere appears to be of mixed fat and soft tissue density lesion. Atypical lipoma or low-grade liposarco ma not entirely excluded by ultrasound. Would recommend MRI of the pelvis.
== END | disposition home or self-care (01) ==
LOC: RADUSWWP 09:01
PROVIDERS: ATTEND Family Medicine
DX: N28.89 Other specified disorders of kidney and ureter (principal); N83.291 Other ovarian cyst, right side; D17.79 Benign lipomatous neoplasm of other sites
CPT/HCPCS: 76700; 76856

== ENCOUNTER → 2018-12-28 | Outpatient (CLI) | payer MEDICARE | END | disposition home or self-care (01) | LOC: RADMRIMAIN 09:30 | PROVIDERS: ATTEND Family Medicine | DX: Z53.9 Procedure and treatment not carried out, unspecified reason (principal) ==

== ENCOUNTER 2020-03-05 11:30 | Inpatient (IN) | payer MEDICARE ==
[2020-03-05] MEDS ORDERED: MORPHINE SULFATE 4 MG/ML SYRINGE IM STA (13:05)
[2020-03-05] MEDS ORDERED: ORPHENADRINE 30 MG/ML 2 ML VIAL IM STA (13:05)
--- NOTE | 2020-03-05 13:48 | ED ---
Back Pain HPI - General Source: patient, RN notes reviewed, old records reviewed <Johanny Palmer - Last Filed: 03/05/20 14:37> <Nik Barba - Last Filed: 03/05/20 15:02> - General Chief Complaint: Back Pain/Injury Stated Complaint: back pain Time Seen by Provider: 03/05/20 12:38 - History of Present Illness Initial Comments: Asians 71-year-old female presents emergency department today from outpatient CAT scan. She had this done for a soft tissue mass in her abdomen. She is complaining of lower back pain for the past month. She reports she's been taking Tylenol without any significant relief. She does report some radiation on the left leg. She denies saddle anesthesias. Patient states that she has no fevers or chills. No fall or trauma recently. She does have history of back surgery many years ago. (Johanny Palmer) - Related Data Home Medications Medication Instructions Recorded Confirmed Clopidogrel [Plavix] 75 mg PO DAILY 03/21/18 03/22/18 Sertraline [Zoloft] 25 mg PO DAILY 03/21/18 03/22/18 Simvastatin 40 mg PO HS 03/21/18 03/22/18 allopurinoL [Zyloprim] 100 mg PO DAILY 03/22/18 03/22/18 Previous Rx's Medication Instructions Recorded Albuterol Inhaler (Mhu) [Ventolin 1 - 2 puff INHALATION RT-Q6H #1 03/30/18 Hfa Inhaler (Mhu)] inhaler Budesonide-Formot 160-4.5 Mcg 2 puff INHALATION BID #1 inhaler 03/30/18 [Symbicort 160-4.5 Mcg Inhaler] Carvedilol [Coreg] 50 mg PO BID #120 tablet 03/30/18 Losartan [Cozaar] 25 mg PO DAILY #30 tab 03/30/18 Tiotropium 18 Mcg/Puff [Spiriva] 1 puff INHALATION DAILY #1 device 03/30/18 hydrALAZINE HCL [Apresoline] 100 mg PO TID #90 tab 03/30/18 predniSONE 10 mg PO DAILY #30 tab 03/30/18 traMADol HCl [Ultram] 50 mg PO Q6HR PRN #14 tab 03/30/18 Allergies Allergy/AdvReac Type Severity Reaction Status Date / Time Penicillins Allergy Nausea & Verified 03/22/18 09:38 Vomiting & Diarrhea Review of Systems ROS Other: All systems not noted in ROS Statement are negative. <Johanny Palmer - Last Filed: 03/05/20 14:37> ROS Other: All systems not noted in ROS Statement are negative. <Nik Barba - Last Filed: 03/05/20 15:02> ROS Statement: Those systems with pertinent positive or pertinent negative responses have been documented in the HPI. 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 History of Any Multi-Drug Resistant Organisms: ESBL Date of last positivie culture/infection: 01/03/19 MDRO Source:: ESBL URINE Past Surgical History: AICD, Appendectomy, Back Surgery, Cholecystectomy, Heart Catheterization, Pacemaker Additional Past Surgical History / Comment(s): AICD/pacer, low back surgery, R kidney stented, colonoscopies/benign polypectomy, R eye cataract laser surgery, Past Anesthesia/Blood Transfusion Reactions: No Reported Reaction Additional Past Anesthesia/Blood Transfusion Reaction / Comment(s): Pt states she has received blood before without reaction. Type of Cardiac Device: Permanent Pacemaker, AICD Device Placement Date:: 2015 Past Psychological History: Depression Past Alcohol Use History: None Reported Past Drug Use History: None Reported - Past Family History Father History Unknown: Yes Mother Family Medical History: Cancer Additional Family Medical History / Comment(s): Mother had colon cancer. Sghe at the age of 82 yrs. <Bette Palmerily - Last Filed: 03/05/20 14:37> General Exam General appearance: alert, in no apparent distress Head exam: Present: atraumatic, normocephalic, normal inspection Eye exam: Present: normal appearance, PERRL, EOMI. Absent: scleral icterus, conjunctival injection, periorbital swelling ENT exam: Present: normal exam, mucous membranes moist Neck exam: Present: normal inspection. Absent: tenderness, meningismus, lymphadenopathy Respiratory exam: Present: normal lung sounds bilaterally Cardiovascular Exam: Present: regular rate, normal rhythm, normal heart sounds. Absent: systolic murmur, diastolic murmur, rubs, gallop, clicks GI/Abdominal exam: Present: soft, normal bowel sounds, other ( has a grapefruit size mass in the lower left abdomen). Absent: distended, tenderness, guarding, rebound, rigid Extremities exam: Present: normal inspection, full ROM, normal capillary refill. Absent: tenderness, pedal edema, joint swelling, calf tenderness Back exam: Present: normal inspection Neurological exam: Present: alert, oriented X3, CN II-XII intact Psychiatric exam: Present: normal affect, normal mood <Johanny Palmer - Last Filed: 03/05/20 14:37> - General Exam Comments Initial Comments: 71-year-old female. Alert and oriented. No significant chest (Johanny Palmer) Course Vital Signs 03/05/20 11:37 Temperature 97.4 F L Pulse Rate 68 Respiratory 18 Rate Blood Pressure 125/73 O2 Sat by Pulse 97 Oximetry Medical Decision Making - Radiology Data Radiology results: report reviewed <Johanny Palmer - Last Filed: 03/05/20 14:37> <Nik Barba - Last Filed: 03/05/20 15:02> - Medical Decision Making 79-year-old female presents with 1 month of back pain. She had outpatient CT per mass on her abdomen that at present and groin for the past year. The CT showed the mass extending to the pelvic level which could be benign or liposarcoma. She does state that her son from soft tissue sarcoma. Patient CT didn't mention concern for appearance of L1 vertebrae possible metastatic disease or Paget's disease or subacute fracture and differential. Patient will be given IV fluids labwork obtained. I discussed case with Dr. Barba the Patient did question if she would prefer to go home outpatient. I discussed with the Patient that we can admit her for consults oncology and her surgeon Dr. Kinsey. (Johanny Palmer) Patient reevaluated by myself, Dr. Barba. Patient resting comfortably in bed. Patient does have approximately 8 cm mass to the lower abdomen just near the suprapubic region. CT reviewed with concerning results. Patient and family updated. Patient also complains of back discomfort. Patient does have previous back surgery however area back surgery does appear lower than L1. Case was discussed with Judie with oncology as well as Dr. Kinsey who will consult. Case also discussed with Dr. Mercado, who will admit covering forDr. Hummel. She'll decide on GI consult once lab work is returned. Patient was reexamined and reevaluated. I do agree with PA findings. This includes diagnostic interpretation and treatment plan. (Nik Barba) - Radiology Data CT shows confirmation of lower anterior abdominal wall mass extending to the mid pelvic has with soft tissue component which could be benign etiology low-grade liposarcoma cannot be excluded and complete surgical excision is likely warranted. Double duct sign with mild to moderate extra hepatic and mild dilation compared to prior studies. Follow-up advised rule out ampullary mass or neoplasm. Abnormal appearance L1 vertebra possible Behcet's disease chronic metastatic disease and differential. Healing subacute fracture and also differential. Moderate severe colonic stasis. No about structure. (Johanny Palmer) Disposition Is patient prescribed a controlled substance at d/c from ED?: No Time of Disposition: 14:40 <Johanny Palmer - Last Filed: 03/05/20 14:37> <Nik Barba - Last Filed: 03/05/20 15:02> Clinical Impression: Abdominal mass, Fracture of L1 vertebra, Intractable back pain Disposition: ADMITTED IP TO THIS HOSP Condition: Stable Referrals: Jelly Zamorano MD [Primary Care Provider] - 1-2 days
[2020-03-05] MEDS ORDERED: SODIUM CHLORIDE 0.9% 1,000 ML IV ONE (14:40)
[2020-03-05] MEDS ORDERED: KETOROLAC 15 MG/ML 1 ML VIAL IVP PRN (14:42)
[2020-03-05] MEDS ORDERED: IBUPROFEN 400 MG TAB PO PRN (14:42)
[2020-03-05] MEDS ORDERED: ONDANSETRON 4 MG/2 ML VIAL IVP PRN (14:42)
[2020-03-05] MEDS ORDERED: NALOXONE 0.4 MG/ML 1 ML VIAL IV PRN (14:42)
[2020-03-05] MEDS ORDERED: ACETAMINOPHEN TAB 325 MG TAB PO PRN (14:42)
[2020-03-05] MEDS: SODIUM CHLORIDE 0.9% 1,000 ML IV SCH (14:59)
[2020-03-05 15:04] LABS: Basophils % (A) 0 %; Eosinophils # (A) 0.2 k/uL (0-0.7); Eosinophils % (A) 2 %; HGB 12.3 gm/dL (11.4-16.0); Lymphocytes % (A) 11 %; MCH 32.1 pg (25.0-35.0); MCHC 31.5 g/dL (31.0-37.0); MCV 101.7 fL (80.0-100.0); Macrocytosis Slight; Mean Platelet Volume 7.9; Monocytes # (A) 0.5 k/uL (0-1.0); Monocytes % (A) 5 %; Neutrophils % (A) 81 %; Platelet Count 301 k/uL (150-450); RBC 3.84 m/uL (3.80-5.40); RDW 13.7 % (11.5-15.5); WBC 9.8 k/uL (3.8-10.6)
[2020-03-05 15:10] LABS: Appearance,Urine Clear (Clear); Bacteria,Urine Moderate /hpf; Bilirubin,Urine Negative (Negative); Blood,Urine Trace (Negative); Color,Urine Colorless; Glucose,Urine (UA) Negative (Negative); Ketones,Urine Negative (Negative); Leukocyte Esterase,Urine Negative (Negative); Nitrite,Urine Negative (Negative); Protein,Urine Trace (Negative); RBC,Urine <1 /hpf (0-5); Specific Gravity,Urine 1.004 (1.001-1.035); Squamous Epithelial Cell,Urine <1 /hpf (0-4); Urobilinogen,Urine <2.0 mg/dL (<2.0); WBC,Urine 3 /hpf (0-5)
[2020-03-05 15:16] LABS: Potassium 4.1 mmol/L (3.5-5.1)
[2020-03-05 15:17] LABS: Albumin 4.2 g/dL (3.5-5.0); Calcium 10.1 mg/dL (8.4-10.2); Total Bilirubin 0.5 mg/dL (0.2-1.3); Total Protein 6.8 g/dL (6.3-8.2)
[2020-03-05] MEDS ORDERED: MELATONIN 3 MG TABLET PO PRN (17:21)
--- NOTE | 2020-03-05 17:25 | P.HPIM ---
History of Present Illness H&P Date: 03/05/20 Chief Complaint: back pain Patient is a 79-year-old female with past medical history of 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 This showed anterior abdominal wall mass extending into the mid pelvic region with soft tissue component, double duct sign with [id number] extrahepatic and mild herpetic no elicitation, abnormal appearance of the L1 vertebral possible Paget's versus healing subacute/chronic fracture, and moderate severe colonic fecal stasis. Vital signs within normal limits on presentation to the emergency department. Laboratory analysis showed an AST of 41, and urinalysis was unremarkable. Dr. Kinsey had initially Center for outpatient CTA was contacted and recommended admission. She was started on IV fluids and pain medications in the emergency department. She is admitted for intractable back pain and abdominal wall mass. PCP is Sergio Luke GERMINATION TESTING MANAGER through Dr. Fairchild office. Patient seen and examined at bedside. Back pain X 1 month with pain radiating down her left leg. Back and leg is the worst at night and she is not sleeping well. No history of injury or fall prior to the back pain. - pain is worse with movement - Severe pain in back - Leg pain is only for the last one week, mostly in hip and radiates to the knee. She denies a sharp or shooting pain, she denies numbness or tingling. - worse with coughing, movement, bowel movements. - no change in urination - + constipation currently -Reports chronic toe numbness secondary to her known gout which is unchanged Abdominal mass for the last 1.5 years and is growing and veins showing so Dr. Duarte sent her for CT abdomen and pelvis. Patient reports that abdomen not increased in pain. She does report some recent weight loss. But states that her appetite has been okay. Chronic cough productive of clear sputum that is unchanged, chronic sinusitis secondary to intermittent home O2 use that is unchanged. Review of Systems Pertinent positives and negatives as discussed in HPI, a complete review of systems was performed and all other systems are negative. 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 History of Any Multi-Drug Resistant Organisms: ESBL Date of last positivie culture/infection: 01/03/19 MDRO Source:: ESBL URINE Past Surgical History: AICD, Appendectomy, Back Surgery, Cholecystectomy, Heart Catheterization, Pacemaker Additional Past Surgical History / Comment(s): AICD/pacer, low back surgery, R kidney stented, colonoscopies/benign polypectomy, R eye cataract laser surgery, Past Anesthesia/Blood Transfusion Reactions: No Reported Reaction Additional Past Anesthesia/Blood Transfusion Reaction / Comment(s): Pt states she has received blood before without reaction. Type of Cardiac Device: Permanent Pacemaker, AICD Device Placement Date:: 2015 Past Psychological History: Depression Smoking Status: Current every day smoker Past Alcohol Use History: None Reported Past Drug Use History: None Reported Additional History: 06/11 PPD,. Has oxygen at home - Past Family History Father History Unknown: Yes Mother Family Medical History: Cancer Additional Family Medical History / Comment(s): Mother had colon cancer. Sghe at the age of 82 yrs. Medications and Allergies Home Medications Medication Instructions Recorded Confirmed Type Sertraline [Zoloft] 25 mg PO DAILY 03/21/18 03/05/20 History Simvastatin 40 mg PO HS 03/21/18 03/05/20 History allopurinoL [Zyloprim] 100 mg PO BID 03/22/18 03/05/20 History Aspirin EC [Ecotrin Low Dose] 81 mg PO DAILY 03/05/20 03/05/20 History Docusate [Colace] 100 mg PO DAILY PRN 03/05/20 03/05/20 History Gabapentin [Neurontin] 100 mg PO HS 03/05/20 03/05/20 History Metoprolol Tartrate [Lopressor] 50 mg PO BID 03/05/20 03/05/20 History Simethicone [Gas-X] 125 mg PO DAILY PRN 03/05/20 03/05/20 History Umeclidinium Brm/Vilanterol Tr 1 puff INHALATION RT-DAILY 03/05/20 03/05/20 History [Anoro Ellipta 62.5-25 Mcg INH] amLODIPine [Norvasc] 10 mg PO DAILY 03/05/20 03/05/20 History clonazePAM [KlonoPIN] 0.5 mg PO Q8H 03/05/20 03/05/20 History hydrALAZINE HCL [Apresoline] 100 mg PO Q8H 03/05/20 03/05/20 History Allergies Allergy/AdvReac Type Severity Reaction Status Date / Time ibuprofen [From Motrin] Allergy Abdominal Verified 03/05/20 16:25 Pain Sulfa (Sulfonamide Allergy Unknown Verified 03/05/20 16:25 Antibiotics) Physical Exam Osteopathic Statement: *. No significant issues noted on an osteopathic structural exam other than those noted in the History and Physical/Consult. Vitals: Vital Signs Temp Pulse Resp BP Pulse Ox 03/05/20 15:56 78 16 154/69 96 03/05/20 11:37 97.4 F L 68 18 125/73 97 Intake and Output 03/05/20 03/05/20 03/05/20 06:59 14:59 22:59 Other: Weight 47.174 kg General: non toxic, mild distress due to pain, appears at stated age Derm: warm, dry Head: atraumatic, normocephalic, symmetric Eyes: EOMI, no lid lag, anicteric sclera, pupils equal round reactive to light ENT: Nose and ears atraumatic, no thrush, no pharyngeal erythema Neck: No thyromegaly, no cervical lymphadenopathy, trachea midline, supple Mouth: no lip lesion, mucus membranes moist Cardiovascular: S1S2 reg, no murmur, positive posterior tibial pulse bilateral, no edema, capillary refill less than 2 seconds Lungs: clear to ascultation bilateral, no ronchi, no rales, no wheeze, no accessory muscle use Abdominal: soft, nontender to palpation, no guarding, no appreciable organomegaly, normal bowel sounds Ext: no gross muscle atrophy, muscle strength muscle strength 5 out of 5 in all 4 extremities, no contractures Spine: Tenderness to palpation over L1 spinous process into the right L1, no step-off noted, kyphosis Neuro: CN II-XI grossly intact, light touch intact all 4 extremities, finger to nose within normal limits, Psych: Alert, oriented, appropriate affect Results CBC & Chem 7: 03/05/20 14:39 03/05/20 14:39 Labs: Abnormal Lab Results - Last 24 Hours (Table) 03/05/20 03/05/20 03/05/20 Range/Units 14:39 14:39 14:39 MCV 101.7 H (80.0-100.0) fL Neutrophils # 8.0 H (1.3-7.7) k/uL Chloride 111 H (98-107) mmol/L Carbon Dioxide 21 L (22-30) mmol/L BUN 22 H (7-17) mg/dL AST 41 H (14-36) U/L Urine Protein Trace H (Negative) Urine Blood Trace H (Negative) Urine Bacteria Moderate H (None) /hpf Thrombosis Risk Factor Assmnt - DVT/VTE Prophylaxis DVT/VTE Prophylaxis: Low risk, early ambulation encouraged Assessment and Plan Assessment: Intractable back pain with L1 abnormality -Consult orthospine -Morphine, [place], and Motrin -CT abdomen and pelvis with possible Paget's versus metastatic versus acute on chronic fracture -PT/OT evaluation Abdominal wall mass -Possible benign etiology versus low grade liposarcoma-recommend complete surgic al excision -Await Dr. Kinsey consult -Pain control Double duct sign with mild to moderate hepatic and mild pancreatic duct dilatation -LFTs and lipase normal - GI evaluation -No issues with nausea, vomiting, or food intolerance Moderate constipation -MiraLAX Hypertension, controlled -Resume home Norvasc, metoprolol, and hydralazine -Follow blood pressures Dyslipidemia -Resume statin Irregular heartbeat status post AICD/permanent pacer -Not a candidate for MRI The patient is admitted with an anticipated greater than 2 midnight stay for evaluation of intractable low back pain and lower abdominal wall mass Surrogate decision-maker: Daughter Emily CODE STATUS: Full DVT prophylaxis: SCDs Discussed with: Patient, ED physician, nursing Anticipated discharge date: in 1-[address]: home A total of 65 minutes was spent on the care of this complex patient more than 50% of the time was spent in counseling and care coordination.
[2020-03-05] MEDS: MORPHINE SULFATE 4 MG/ML SYRINGE IV PRN ×2 (18:04→22:08)
[2020-03-05] MEDS: polyethylene glycoL 3350 17 GM POWD.PACK PO SCH (22:28)
[2020-03-06] MEDS: SODIUM CHLORIDE 0.9% 1,000 ML IV SCH ×3 (00:01→20:44)
[2020-03-06] MEDS: MORPHINE SULFATE 4 MG/ML SYRINGE IV PRN ×2 (03:43→09:16)
[2020-03-06] MEDS: PANTOPRAZOLE 40 MG/10 ML VIAL IV SCH (08:04)
[2020-03-06] MEDS: polyethylene glycoL 3350 17 GM POWD.PACK PO SCH (08:04)
[2020-03-06] MEDS: NICOTINE 7MG/24HR PATCH TRANSDERM SCH ×2 (08:04→08:18)
[2020-03-06] MEDS: hydrALAZINE HCL 50 MG TAB PO SCH ×4 (08:05→23:36)
[2020-03-06] MEDS: HYDROcodone/APAP 5-325MG 1 EACH TAB PO PRN ×2 (08:05)
[2020-03-06] MEDS: amLODIPine 10 MG TAB PO SCH (08:05)
[2020-03-06] MEDS: METOPROLOL TARTRATE 50 MG TAB PO SCH ×3 (08:05→20:44)
[2020-03-06 08:09] LABS: HCT 32.9 % (34.0-46.0); HGB 10.3 gm/dL (11.4-16.0); MCH 31.9 pg (25.0-35.0); MCHC 31.3 g/dL (31.0-37.0); Macrocytosis Slight; Mean Platelet Volume 7.9; Platelet Count 227 k/uL (150-450); RBC 3.23 m/uL (3.80-5.40); RDW 13.4 % (11.5-15.5)
[2020-03-06 11:42] LABS: Albumin 3.6 g/dL (3.80-4.90); Albumin/Globulin Ratio 2.57 (1.60-3.17); Anion Gap 9.3 mmol/L (4.00-12.00); BUN/Creat Ratio 18.89 Ratio (12.00-20.00); Calcium 8.9 mg/dL (8.7-10.3); Carbon Dioxide 24.7 mmol/L (21.6-31.8); Globulin 1.4 g/dL (1.6-3.3); Non-African American GFR(CKD) 61.2 (60.0-200.0); Potassium 3.7 mmol/L (3.5-5.5); Total Bilirubin 0.3 mg/dL (0.2-1.2)
--- NOTE | 2020-03-06 11:48 | P.CONS ---
History of Present Illness - Reason for Consult Consult date: 03/06/20 abdominal mass, suspicions for biliary obst, L1 vertebra suspicious lesion Requesting physician: Johanny Palmer - Chief Complaint abdominal mass - History of Present Illness Mrs. Hutchinson is a very pleasant 79-year-old female we've been asked to see as she has multiple concerning findings on recent imaging. She has a large right lower pelvis mass that has been increasing in size of the last year, this mass is now visible and causing patient some discomfort with walking and bending. There is concerning findings on CT for biliary obstruction as well as an L1 vertebral lesion. She has had her gallbladder removed. Patient does have some pain in the left leg and the low back. States some fluctuating weight loss but, has gained that back, appetite fluctuates as well, denies nausea, vomiting, diarrhea, no other masses, no history of malignancy. 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 History of Any Multi-Drug Resistant Organisms: ESBL Year Discovered:: 01/03/19 MDRO Source:: ESBL URINE Past Surgical History: AICD, Appendectomy, Back Surgery, Cholecystectomy, Heart Catheterization, Pacemaker Additional Past Surgical History / Comment(s): AICD/pacer, low back surgery, R kidney stented, colonoscopies/benign polypectomy, R eye cataract laser surgery, Past Anesthesia/Blood Transfusion Reactions: No Reported Reaction Additional Past Anesthesia/Blood Transfusion Reaction / Comm: Pt states she has received blood before without reaction. Type of Cardiac Device: Permanent Pacemaker, AICD Device Placement Date:: 2015 Past Psychological History: Depression Additional Psychological History / Comment(s): Pt resides with her son but states she will go to her daughters after discharge. She does not drive, her family or friends drive her to [place] or she takes the cab. She is otherwise independent. Smoking Status: Current every day smoker Past Alcohol Use History: None Reported Additional Past Alcohol Use History / Comment(s): Pt started smoking in 1961 and states she has quit on and off over the years. Past Drug Use History: None Reported - Past Family History Father History Unknown: Yes Mother Family Medical History: Cancer Additional Family Medical History / Comment(s): Mother had colon cancer. Sghe at the age of 82 yrs. Medications and Allergies Home Medications Medication Instructions Recorded Confirmed Type Sertraline [Zoloft] 25 mg PO DAILY 03/21/18 03/05/20 History Simvastatin 40 mg PO HS 03/21/18 03/05/20 History allopurinoL [Zyloprim] 100 mg PO BID 03/22/18 03/05/20 History Aspirin EC [Ecotrin Low Dose] 81 mg PO DAILY 03/05/20 03/05/20 History Docusate [Colace] 100 mg PO DAILY PRN 03/05/20 03/05/20 History Gabapentin [Neurontin] 100 mg PO HS 03/05/20 03/05/20 History Metoprolol Tartrate [Lopressor] 50 mg PO BID 03/05/20 03/05/20 History Simethicone [Gas-X] 125 mg PO DAILY PRN 03/05/20 03/05/20 History Umeclidinium Brm/Vilanterol Tr 1 puff INHALATION RT-DAILY 03/05/20 03/05/20 History [Anoro Ellipta 62.5-25 Mcg INH] amLODIPine [Norvasc] 10 mg PO DAILY 03/05/20 03/05/20 History clonazePAM [KlonoPIN] 0.5 mg PO Q8H 03/05/20 03/05/20 History hydrALAZINE HCL [Apresoline] 100 mg PO Q8H 03/05/20 03/05/20 History Allergies Allergy/AdvReac Type Severity Reaction Status Date / Time ibuprofen [From Motrin] Allergy Abdominal Verified 03/05/20 16:25 Pain Sulfa (Sulfonamide Allergy Unknown Verified 03/05/20 16:25 Antibiotics) latex AdvReac Rash/Hives Verified 03/05/20 23:14 Physical Exam Vitals: Vital Signs Temp Pulse Pulse Resp BP BP Pulse Ox 03/06/20 08:00 16 03/06/20 07:00 98.8 F 80 16 166/70 94 L 03/06/20 03:28 98.8 F 96 18 148/76 88 L 03/05/20 15:56 78 16 154/69 96 Intake and Output 03/05/20 03/06/20 03/06/20 22:59 06:59 14:59 Intake Total 620 Balance 620 Intake: Intake, IV Titration 620 Amount Sodium Chloride 0.9% 1, 620 000 ml @ 100 mls/hr IV . Q10H [facility] Rx#:[id number] Other: Voiding Method Toilet # Voids 3 Weight 47.174 kg - Constitutional General appearance: cooperative, no acute distress, thin - EENT Eyes: anicteric sclerae, EOMI ENT: hearing grossly normal, normal oropharynx - Neck Neck: no lymphadenopathy - Respiratory Respiratory: bilateral: CTA - Cardiovascular Rhythm: regular Heart sounds: normal: S1, S2 Abnormal Heart Sounds: no systolic murmur, no diastolic murmur, no rub, no S3 Gallop, no S4 Gallop, no click, no other leg Peripheral Edema: bilateral: None - Gastrointestinal right lower quadrant soft mass, approximately the size of a grapefruit, venous prominence is noted across the top of it, no unusual pain with palpation General gastrointestinal: no absent bowel sounds, no decreased bowel sounds, no distended, no hepatomegaly, no hyperactive bowel sounds, normal bowel sounds, no organomegaly, no rigid, no scaphoid, soft, no splenomegaly, tenderness (right upper quadrant, mild), no umbilical hernia, no ventral hernia - Neurologic Neurologic: CNII-XII intact - Musculoskeletal Musculoskeletal: generalized weakness, strength equal bilaterally - Psychiatric Psychiatric: A&O x's 3, appropriate affect, intact judgment & insight Results CBC & Chem 7: 03/06/20 07:34 03/05/20 14:39 Labs: Abnormal Lab Results - Last 24 Hours (Table) 03/05/20 03/05/20 03/05/20 Range/Units 14:39 14:39 14:39 RBC (3.80-5.40) m/uL Hgb (11.4-16.0) gm/dL Hct (34.0-46.0) % MCV 101.7 H (80.0-100.0) fL Neutrophils # 8.0 H (1.3-7.7) k/uL Chloride 111 H (98-107) mmol/L Carbon Dioxide 21 L (22-30) mmol/L BUN 22 H (7-17) mg/dL AST 41 H (14-36) U/L Urine Protein Trace H (Negative) Urine Blood Trace H (Negative) Urine Bacteria Moderate H (None) /hpf 03/06/20 Range/Units 07:34 RBC 3.23 L (3.80-5.40) m/uL Hgb 10.3 L (11.4-16.0) gm/dL Hct 32.9 L (34.0-46.0) % MCV 102.0 H (80.0-100.0) fL Neutrophils # (1.3-7.7) k/uL Chloride (98-107) mmol/L Carbon Dioxide (22-30) mmol/L BUN (7-17) mg/dL AST (14-36) U/L Urine Protein (Negative) Urine Blood (Negative) Urine Bacteria (None) /hpf CT scan - abdomen: report reviewed CT scan - chest: report reviewed CT scan - pelvis: report reviewed Assessment and Plan (1) Abdominal mass Current Visit: Yes Status: Acute Priority: High Code(s): R19.00 - INTRA- ABD AND PELVIC SWELLING, MASS AND LUMP, UNSP SITE SNOMED Code(s): 771796250 (2) Fracture of L1 vertebra Current Visit: Yes Status: Acute Priority: High Code(s): S32.019A - UNSP FRACTURE OF FIRST LUMBAR VERTEBRA, INIT FOR CLOS FX SNOMED Code(s): 041289658 Plan: On discussion with patient she states that Surgery is going to biopsy the abdominal mass. Agree with the plan. Gastroenterology consulted for the biliary duct dilation. Patient has a pacemaker so MRI of the spine is unable to be done. Pending results of the above workup, patient may need further intervention by Orthopedics. Macrocytic anemia workup ordered We will continue to follow along with you Doctor attests: I performed a history and physical examination of this patient, developed impression and plan of care. Discussed with dictator. I agree with dictators note, documented as a scribe.
[2020-03-06] MEDS ORDERED: GABAPENTIN 300 MG CAP PO SCH (13:00)
[2020-03-06] MEDS: GABAPENTIN 300 MG CAP PO SCH ×2 (13:03→20:46)
--- NOTE | 2020-03-06 13:43 | P.GSCN ---
<Cheyanne Sethi - Last Filed: 03/06/20 13:28> History of Present Illness Consult date: 03/06/20 History of present illness: CHIEF COMPLAINT: Abdominal mass HISTORY OF PRESENT ILLNESS: This is a 79-year-old female with a known history of CVA with right eye blindness, hyperlipidemia, hypertension, nonfunctioning right kidney, prior cholecystectomy, appendectomy, AICD and pacemaker, coronary di sease with stent and prior bladder suspensions. Patient is admitted to the hospital regarding a right lower abdominal mass. Patient reports that the mass started out the size of a golf ball and is continued to increase in size over the last year. Patient does report having pain with walking and bending due to this mass. Patient had computed tomography scan on 03/05/2020 showing lower anterior abdominal wall mass extending to mid pelvic level and soft tissue component. Patient denies any fever, chills or sweats. Denies any nausea or vomiting. Reports regular bowel movements. PAST MEDICAL HISTORY: See list. PAST SURGICAL HISTORY: See list. MEDICATIONS: See list. ALLERGIES: See list. SOCIAL HISTORY: No illicit drug use. REVIEW OF SYSTEMS: CONSTITUTIONAL: Denies fever or chills. HEENT: Denies blurred vision, vision changes, or eye pain. Denies hemoptysis ENDOCRINE: Denies heat or cold intolerance. CARDIOVASCULAR: Denies chest pain or pressure. RESPIRATORY: No shortness of breath. GASTROINTESTINAL: Denies abdominal pain. Denies nausea or vomiting. NEURO: Denies history of seizures. PSYCH: No depression or suicidal ideation HEMATOLOGIC: Denies bleeding disorders. LYMPHATIC: The patient denies any lumps and bumps around the neck. GENITOURINARY: Denies any blood in urine or increased urinary frequency. MUSCULOSKELETAL: Denies myalgias. Denies joint swelling. Denies decreased range of motion beyond patients baseline. SKIN: Denies pruitis. Denies rash. PHYSICAL EXAM: VITAL SIGNS: Reviewed GENERAL: Well-developed in no acute distress. HEENT: No sclera icterus. Extraocular movements grossly intact. Moist buccal mucosa. Head is atraumatic, normocephalic. Hears conversational speech. No nasal drainage. NECK: Supple without lymphadenopathy. CHEST: Non-labored respirations and equal bilateral excursions. CARDIOVASCULAR: Regular rate with regular rhythm. Palpable 2+ radial pulses. ABDOMEN: Soft. Nondistended. Nontender. Right lower quadrant abdominal mass about the size of a softball. Nontender with palpation. Venous prominence noted across the top. No pain with palpation. No redness. No drainage. MUSCULOSKELETAL: No clubbing or cyanosis. NEUROLOGIC: No focal or lateralizing signs. Cranial nerves II through XII grossly intact. PSYCH: Appropriate affect. Alert and oriented to person, place and time. SKIN: Well perfused. Good skin turgor. LABORATORY DATA: WBC 7.0 hemoglobin 10.3 AST has increased from 41-412 ALT 10 the 187 alk phos 332 lipase 201 total bilirubin 0.3 IMAGING: Computed tomography scan abdomen and pelvis shows confirmation of the lower anterior abdominal wall mass extending to mid pelvic level and soft tissue component. Could be benign in etiology, a low-grade liposarcoma cannot be excluded and complete surgical excision is likely warranted. Double duct sign with mild to moderate extrahepatic and mild pancreatic ductal dilation or prominent from prior studies. Follow-up advised rule out ampullary mass or neoplasm. Abnormal appearance of L1 vertebrae possible Paget's disease, sclerotic metastatic disease. Healing subacute/chronic fracture also in differential. Moderate to severe colonic fecal stasis. No overall bowel obstruction. ASSESSMENT: 1. Abdominal mass 2. Mild/moderate extrahepatic and mild pancreatic ductal dilation with elevated LFTs 3. History of CVA 4. History of AICD and pacemaker 5. History of coronary disease and cardiac stents 6. Essential hypertension 7. History of cholecystectomy 8. History of appendectomy PLAN: -Recommend oncology consult -Recommend biopsy of abdominal mass by oncology -Refer patient to [facility] -Agree with GI consult Thank you for this consultation Physician Oncology Physician note has been reviewed by physician. Signing provider agrees with the documented findings, assessment, and plan of care. Past Medical History Past Medical History: CVA/TIA, Eye Disorder, Hearing Disorder / Deafness, Hyperlipidemia, Hypertension, Osteoarthritis (OA), Renal Disease Additional Past Medical History / Comment(s): CVA with blindness right eye, Pt states she has renal disease-L kidney is nonfunctioning and R kidney functions at about 80% and has been stented/ sees revenue accounting manager every 6 months, irregular heart beat, "bottom of my heart doesn't work well"-pt has AICD/pacer, gout bilateral feet, arthritis bilateral hands and legs, [place] bilaterally, weight loss of about 15 pounds recently. History of Any Multi-Drug Resistant Organisms: ESBL Year Discovered:: 01/03/19 MDRO Source:: ESBL URINE Past Surgical History: AICD, Appendectomy, Back Surgery, Cholecystectomy, Heart Catheterization, Pacemaker Additional Past Surgical History / Comment(s): AICD/pacer, low back surgery, R kidney stented, colonoscopies/benign polypectomy, R eye cataract laser surgery, Past Anesthesia/Blood Transfusion Reactions: No Reported Reaction Additional Past Anesthesia/Blood Transfusion Reaction / Comm: Pt states she has received blood before without reaction. Type of Cardiac Device: Permanent Pacemaker, AICD Device Placement Date:: 2015 Past Psychological History: Depression Additional Psychological History / Comment(s): Pt resides with her son but states she will go to her daughters after discharge. She does not drive, her family or friends drive her to [employer] or she takes the cab. She is otherwise independent. Smoking Status: Current every day smoker Past Alcohol Use History: None Reported Additional Past Alcohol Use History / Comment(s): Pt started smoking in 1961 and states she has quit on and off over the years. Past Drug Use History: None Reported - Past Family History Father History Unknown: Yes Mother Family Medical History: Cancer Additional Family Medical History / Comment(s): Mother had colon cancer. Sghe at the age of 82 yrs. Medications and Allergies Home Medications Medication Instructions Recorded Confirmed Type Sertraline [Zoloft] 25 mg PO DAILY 03/21/18 03/05/20 History Simvastatin 40 mg PO HS 03/21/18 03/05/20 History allopurinoL [Zyloprim] 100 mg PO BID 03/22/18 03/05/20 History Aspirin EC [Ecotrin Low Dose] 81 mg PO DAILY 03/05/20 03/05/20 History Docusate [Colace] 100 mg PO DAILY PRN 03/05/20 03/05/20 History Gabapentin [Neurontin] 100 mg PO HS 03/05/20 03/05/20 History Metoprolol Tartrate [Lopressor] 50 mg PO BID 03/05/20 03/05/20 History Simethicone [Gas-X] 125 mg PO DAILY PRN 03/05/20 03/05/20 History Umeclidinium Brm/Vilanterol Tr 1 puff INHALATION RT-DAILY 03/05/20 03/05/20 Hi story [Anoro Ellipta 62.5-25 Mcg INH] amLODIPine [Norvasc] 10 mg PO DAILY 03/05/20 03/05/20 History clonazePAM [KlonoPIN] 0.5 mg PO Q8H 03/05/20 03/05/20 History hydrALAZINE HCL [Apresoline] 100 mg PO Q8H 03/05/20 03/05/20 History Allergies Allergy/AdvReac Type Severity Reaction Status Date / Time ibuprofen [From Motrin] Allergy Abdominal Verified 03/05/20 16:25 Pain Sulfa (Sulfonamide Allergy Unknown Verified 03/05/20 16:25 Antibiotics) latex AdvReac Rash/Hives Verified 03/05/20 23:14 Surgical - Exam Vital Signs Temp Pulse Resp BP Pulse Ox 97.4 F L 68 18 125/73 97 03/05/20 11:37 03/05/20 11:37 03/05/20 11:37 03/05/20 11:37 03/05/20 11:37 Results - Labs 03/06/20 07:34 03/06/20 07:34 Abnormal Lab Results - Last 24 Hours (Table) 03/05/20 03/05/20 03/05/20 Range/Units 14:39 14:39 14:39 RBC (3.80-5.40) m/uL Hgb (11.4-16.0) gm/dL Hct (34.0-46.0) % MCV 101.7 H (80.0-100.0) fL Neutrophils # 8.0 H (1.3-7.7) k/uL Chloride 111 H (98-107) mmol/L Carbon Dioxide 21 L (22-30) mmol/L BUN 22 H (7-17) mg/dL AST 41 H (14-36) U/L ALT (8-44) U/L Alkaline Phosphatase (41-126) U/L Total Protein (6.2-8.2) g/dL Albumin (3.80-4.90) g/dL Globulin (1.6-3.3) g/dL Urine Protein Trace H (Negative) Urine Blood Trace H (Negative) Urine Bacteria Moderate H (None) /hpf 03/06/20 03/06/20 Range/Units 07:34 07:34 RBC 3.23 L (3.80-5.40) m/uL Hgb 10.3 L (11.4-16.0) gm/dL Hct 32.9 L (34.0-46.0) % MCV 102.0 H (80.0-100.0) fL Neutrophils # (1.3-7.7) k/uL Chloride (98-107) mmol/L Carbon Dioxide (22-30) mmol/L BUN (7-17) mg/dL AST 412 H (14-36) U/L ALT 187 H (8-44) U/L Alkaline Phosphatase 332 H (41-126) U/L Total Protein 5.0 L (6.2-8.2) g/dL Albumin 3.60 L (3.80-4.90) g/dL Globulin 1.4 L (1.6-3.3) g/dL Urine Protein (Negative) Urine Blood (Negative) Urine Bacteria (None) /hpf Diabetes panel 03/05/20 03/06/20 Range/Units 14:39 07:34 Sodium 141 140 (137-145) mmol/L Potassium 4.1 3.7 (3.5-5.1) mmol/L Chloride 111 H 106 (98-107) mmol/L Carbon Dioxide 21 L 24.7 (22-30) mmol/L BUN 22 H 17.0 (7-17) mg/dL Creatinine 1.04 0.9 (0.52-1.04) mg/dL Glucose 92 84 (74-99) mg/dL Calcium 10.1 8.9 (8.4-10.2) mg/dL AST 41 H 412 H (14-36) U/L ALT 10 187 H (4-34) U/L Alkaline Phosphatase 111 332 H (38-126) U/L Total Protein 6.8 5.0 L (6.3-8.2) g/dL Albumin 4.2 3.60 L (3.5-5.0) g/dL Calcium panel 03/05/20 03/06/20 Range/Units 14:39 07:34 Calcium 10.1 8.9 (8.4-10.2) mg/dL Albumin 4.2 3.60 L (3.5-5.0) g/dL Pituitary panel 03/05/20 03/06/20 Range/Units 14:39 07:34 Sodium 141 140 (137-145) mmol/L Potassium 4.1 3.7 (3.5-5.1) mmol/L Chloride 111 H 106 (98-107) mmol/L Carbon Dioxide 21 L 24.7 (22-30) mmol/L BUN 22 H 17.0 (7-17) mg/dL Creatinine 1.04 0.9 (0.52-1.04) mg/dL Glucose 92 84 (74-99) mg/dL Calcium 10.1 8.9 (8.4-10.2) mg/dL Adrenal panel 03/05/20 03/06/20 Range/Units 14:39 07:34 Sodium 141 140 (137-145) mmol/L Potassium 4.1 3.7 (3.5-5.1) mmol/L Chloride 111 H 106 (98-107) mmol/L Carbon Dioxide 21 L 24.7 (22-30) mmol/L BUN 22 H 17.0 (7-17) mg/dL Creatinine 1.04 0.9 (0.52-1.04) mg/dL Glucose 92 84 (74-99) mg/dL Calcium 10.1 8.9 (8.4-10.2) mg/dL Total Bilirubin 0.5 0.3 (0.2-1.3) mg/dL AST 41 H 412 H (14-36) U/L ALT 10 187 H (4-34) U/L Alkaline Phosphatase 111 332 H (38-126) U/L Total Protein 6.8 5.0 L (6.3-8.2) g/dL Albumin 4.2 3.60 L (3.5-5.0) g/dL <Jyoti Duarte - Last Filed: 03/06/20 22:57> History of Present Illness History of present illness: Patient seen and evaluated. Please see additional documentation below. 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 Prior to that, patient reports two-year history of a mass being present. She is undergoing presurgical assessment where she completed both pulmonary assessment and cardiology assessment. She returned to the office with significant increase in size tumor at least 3 times the size from a golf ball to a darlene-sized tumor. She reported discomfort with wearing clothes including bending forward. No change in bowel habits. No blood in stools. She has multiple pre-existing conditions including oxygen-dependent COPD, pacemaker, renal disorder with hypofunctioning kidney. She had an outpatient computed tomography scan which was ordered to follow-up the echo texture of the tumor with suspicion of underlying sarcoma. With the findings of her computed tomography scan, patient presented to the emergency room for immediate assessment. PAST MEDICAL HISTORY: See list and reviewed PAST SURGICAL HISTORY: See list and reviewed MEDICATIONS: See list and reviewed ALLERGIES: See list and reviewed SOCIAL HISTORY: See list and reviewed FAMILY HISTORY: See list and reviewed REVIEW OF ORGAN SYSTEMS: CONSTITUTIONAL: No fevers or chills. Weight unchanged last 3 months. EYES: No glasses. Blindness in right eye following CVA. HEENT: Has difficulties with hearing. No nosebleeds. RESPIRATORY: Denies pneumonia. COPD with oxygen dependence. CARDIOVASCULAR: History of cardiac stent including AICD. His hypertension. GASTROINTESTINAL: Denies fatty food intolerance. Denies change in bowel habits and gas bloat. GENITOURINARY: Denies any blood in urine. History of nonfunctioning left kidney. History of a ESBL urine infection NEUROLOGICAL: Past CVA with sequelae of right eye blindness. History of neuropathy. MUSCULOSKELETAL: Has back pain, stiffness or joint arthritis. Has gout. SKIN: No current skin cancer. No rash. See above. Abdominal wall tumor lower abdomen PSYCHIATRIC: Denies current suicidal thoughts. Has depression ENDOCRINE: Denies current thyroid disorders. Denies any blood sugar glucose intolerance. HEME/LYMPHATIC: Denies any lumps and bumps around the neck. No recent deep venous thrombosis. ALLERGY/IMMUNOLOGY: No immunoglobulin therapy. No immune deficiencies. BREAST: Denies current breast lumps, pain or nipple discharge. PHYSICAL EXAM: VITALS: Reviewed CONSTITUTIONAL: Well developed and in no acute distress. EYES: Conjuctivae without sclera icterus. Extraocular movements grossly intact. HEAD, EARS, NOSE, THROAT: Moist buccal mucosa. Head is atraumatic, normocephalic. No nasal drainage. Positive hearing NECK: Supple. No JV distention. RESPIRATORY: Non-labored respirations and equal bilateral excursions. No gross wheezes. CARDIOVASCULAR: Regular rate and rhythm. Extremities without edema. Palpable 2+ radial pulses. ABDOMEN: Soft. 10 cm x 8 cm lower abdominal tumor with anterior projection over 5 cm at the abdominal wall with hypervascularity without cellulitis or infection LYMPH: No neck lymphadenopathy. MUSCULOSKELETAL: Nail and fingers with good capillary refill. SKIN: Warm and well perfused with good skin turgor. NEUROLOGIC: Cranial nerves II through XII grossly intact. Sensation upper and extremities intact. No focal or lateralizing signs. PSYCH: Appropriate affect. Alert and oriented to person, place and time. Di splays appropriate insight. CLINCAL LABS: Reviewed. Hemoglobin down to 12.3-10.3. Creatinine improved from 1.04-0.9. AST immediately elevated from 41-412. ALT and alkaline phosphatase elevated 10-30 times pre-existing value since admission 187 and 332 respectively IMAGING: Independently reviewed a CT abdomen and pelvis without contrast demonstrates heterogeneous mass of the lower abdominal wall without penetration into the abdominal wall muscle. Moderate size hiatal hernia. Retained stool throughout colon. This is my independent interpretation. RADIOLOGY: Report reviewed CT of the abdomen and pelvis were prominent hepatic biliary system. Gallbladder absent. Presence of double duct sign incorporating pancreatic duct. Multiple cysts along the right kidney. Lower abdominal mass 10 x 8 x 6 cm without abdominal wall hernia. 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 ASSESSMENT: 1. Abnormal computed tomography scan abdominal wall mass for neoplastic process 2. Abnormal computed tomography scan of hepatobiliary system PLAN: 1. With findings on computed tomography scan, this mass is likely malignant versus benign. Will need alternative to surgical resection with tissue biopsy such as core tissue biopsy pending oncology assessment. 2. With likelihood of sarcoma, will need wide local excision incoordination with surgical oncologist at a cancer center 3. Recommend oncology assessment regarding workup for sarcoma and referral to cancer [place] in presence of sarcoma 4. I personally spoke to oncology team regarding tissue biopsy for which core biopsy has been ordered 5. Also, recommend GI consultation for abnormal features of double duct sign including intrahepatic/extrahepatic biliary dilation Thank you for this kind consultation. Surgical - Exam Vital Signs Temp Pulse Resp BP Pulse Ox 97.4 F L 68 18 125/73 97 03/05/20 11:37 03/05/20 11:37 03/05/20 11:37 03/05/20 11:37 03/05/20 11:37 Results - Labs 03/06/20 07:34 03/06/20 07:34 Abnormal Lab Results - Last 24 Hours (Table) 03/06/20 03/06/20 Range/Units 07:34 07:34 RBC 3.23 L (3.80-5.40) m/uL Hgb 10.3 L (11.4-16.0) gm/dL Hct 32.9 L (34.0-46.0) % MCV 102.0 H (80.0-100.0) fL AST 412 H (13-35) U/L ALT 187 H (8-44) U/L Alkaline Phosphatase 332 H (41-126) U/L Total Protein 5.0 L (6.2-8.2) g/dL Albumin 3.60 L (3.80-4.90) g/dL Globulin 1.4 L (1.6-3.3) g/dL Diabetes panel 03/06/20 Range/Units 07:34 Sodium 140 (135-145) mmol/L Potassium 3.7 (3.5-5.5) mmol/L Chloride 106 (96-109) mmol/L Carbon Dioxide 24.7 (21.6-31.8) mmol/L BUN 17.0 (9.0-27.0) mg/dL Creatinine 0.9 (0.6-1.5) mg/dL Glucose 84 (70-110) mg/dL Calcium 8.9 (8.7-10.3) mg/dL AST 412 H (13-35) U/L ALT 187 H (8-44) U/L Alkaline Phosphatase 332 H (41-126) U/L Total Protein 5.0 L (6.2-8.2) g/dL Albumin 3.60 L (3.80-4.90) g/dL Calcium panel 03/06/20 Range/Units 07:34 Calcium 8.9 (8.7-10.3) mg/dL Albumin 3.60 L (3.80-4.90) g/dL Pituitary panel 03/06/20 Range/Units 07:34 Sodium 140 (135-145) mmol/L Potassium 3.7 (3.5-5.5) mmol/L Chloride 106 (96-109) mmol/L Carbon Dioxide 24.7 (21.6-31.8) mmol/L BUN 17.0 (9.0-27.0) mg/dL Creatinine 0.9 (0.6-1.5) mg/dL Glucose 84 (70-110) mg/dL Calcium 8.9 (8.7-10.3) mg/dL Adrenal panel 03/06/20 Range/Units 07:34 Sodium 140 (135-145) mmol/L Potassium 3.7 (3.5-5.5) mmol/L Chloride 106 (96-109) mmol/L Carbon Dioxide 24.7 (21.6-31.8) mmol/L BUN 17.0 (9.0-27.0) mg/dL Creatinine 0.9 (0.6-1.5) mg/dL Glucose 84 (70-110) mg/dL Calcium 8.9 (8.7-10.3) mg/dL Total Bilirubin 0.3 (0.2-1.2) mg/dL AST 412 H (13-35) U/L ALT 187 H (8-44) U/L Alkaline Phosphatase 332 H (41-126) U/L Total Protein 5.0 L (6.2-8.2) g/dL Albumin 3.60 L (3.80-4.90) g/dL Assessment and Plan (1) Abdominal wall mass of right lower quadrant Current Visit: Yes Status: Acute Code(s): R19.03 - RIGHT LOWER QUADRANT ABDOMINAL SWELLING, MASS AND LUMP SNOMED Code(s): 284969683 (2) Abnormal CT of liver Current Visit: Yes Status: Acute Code(s): R93.2 - ABNORMAL FINDINGS ON DX IMAGING OF LIVER AND BILIARY TRACT SNOMED Code(s): 13325556848445892 (3) Oxygen dependent Current Visit: Yes Status: Acute Code(s): Z99.81 - DEPENDENCE ON SUPPLEMENTAL OXYGEN SNOMED Code(s): 046382948658 (4) COPD (chronic obstructive pulmonary disease) Current Visit: No Status: Acute Code(s): J44.9 - CHRONIC OBSTRUCTIVE PULMONARY DISEASE, UNSPECIFIED SNOMED Code(s): 70656985 (5) Normocytic anemia Current Visit: No Status: Acute Code(s): D64.9 - ANEMIA, UNSPECIFIED SNOMED Code(s): 397168419
[2020-03-06] MEDS: HYDROcodone/APAP 7.5-325MG 1 EACH TAB PO PRN (15:12)
--- NOTE | 2020-03-06 18:29 | CT ---
EXAMINATION TYPE: CT lumbar spine wo con DATE OF EXAM: 03/06/2020 COMPARISON: CT abdomen pelvis 03/21/2018 HISTORY: Trauma today. Neck and head pain. CT DLP: 1370.9 mGycm Automated exposure control for dose reduction was used. Images were obtained from the level of T12-S3 vertebra without contrast. Normal alignment. There is narrowing of L5-S1 disc space. There is osteosclerosis in the L1 vertebral body. There is minimal cortical irregularity on the anterior superior aspect of L1 vertebral body th at could be a very minimal 5% compression fracture. The posterior elements are intact. There is no lilibeth mbar paraspinal mass. The sacroiliac joints appear intact. IMPRESSION: Osteosclerotic changes in the L1 vertebral body with possible minimal compression fracture. The possi bility of osseous metastatic disease should be considered. This is a change compared to old CT scan. Whole body bone scan would BE helpful for further evaluation if clinically indicated.
[2020-03-06] MEDS: LIDOCAINE 5% PATCH TOPICAL SCH (18:32)
--- NOTE | 2020-03-06 19:05 | P.PN ---
Subjective Progress Note Date: 03/06/20 (delayed charting seen at approx 1300) Principal diagnosis: back pain Patient is a 79-year-old female with past medical history of 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 This showed anterior abdominal wall mass extending into the mid pelvic region with soft tissue component, double duct sign with [id number] extrahepatic and mild herpetic no elicitation, abnormal appearance of the L1 vertebral possible Paget's versus healing subacute/chronic fracture, and moderate severe colonic fecal stasis. Vital signs within normal limits on presentation to the emergency department. Laboratory analysis showed an AST of 41, and urinalysis was unremarkable. Dr. Kinsey had initially sent in order for outpatient CT was contacted and recommended admission to medicine. She was started on IV fluids and pain medications in the emergency department. She was admitted for intractable back pain and abdominal wall mass. On the morning after admission her liver enzymes had elevated. She continued to have some pain. She was seen by oncology who recommended biopsy of the abdominal wall mass. It came to light that her son recently had a soft tissue abdominal sarcoma. He has since passed with the cause undetermined. Daughter reports hx of opiate dependency and misappropriation of medications. General: non toxic, no distress, appears at stated age Derm: warm, dry Head: atraumatic, normocephalic, symmetric Eyes: EOMI, no lid lag, anicteric sclera Mouth: no lip lesion, mucus membranes moist Cardiovascular: S1S2 reg, no murmur, positive posterior tibial pulse bilateral, Lungs: CTA bilateral, no rhonchi, no rales , no accessory muscle use Abdominal: soft, nontender to palpation, no guarding, no appreciable organo megaly Ext: no gross muscle atrophy, no edema, no contractures Neuro: CN II-XI grossly intact, no focal neuro deficits Psych: Alert, oriented, appropriate affect Intractable back pain with L1 abnormality -Consult orthospine -[place], unable to take NSAID due to hx of kidney disease -CT abdomen and pelvis with possible Paget's versus metastatic versus acute on chronic fracture -PT/OT evaluation -Gabapentin Abdominal wall mass -Possible benign etiology versus low grade liposarcoma-recommend complete surgical excision -Await biopsy results -Surgery recs follow-up with Joc[facility]nn -Pain control Double duct sign with mild to moderate hepatic and mild pancreatic duct dila tation, transaminitis - GI evaluation, possible ERCP D/W GI - repeat LFTS in AM Moderate constipation -MiraLAX Hypertension, controlled -Norvasc, metoprolol, and hydralazine -Follow blood pressures Dyslipidemia -Resume statin Irregular heartbeat status post AICD/permanent pacer -Not a candidate for MRI DVT prophylaxis: SCDs Discussed with: Patient, nursing, Oncology, GI Anticipated discharge: 1-[address]: home A total of 35 minutes was spent on the care of this complex patient more than 50% of the time was spent in counseling and care coordination. Objective - Vital Signs Vital signs: Vital Signs Temp 98.7 F 03/06/20 17:35 Pulse 82 03/06/20 17:35 Resp 16 03/06/20 17:35 BP 117/68 03/06/20 17:35 Pulse Ox 93 L 03/06/20 17:35 Intake & Output 03/05/20 03/06/20 03/06/20 18:59 06:59 18:59 Intake Total 620 Balance 620 Weight 47.174 kg 47.174 kg Intake: Intake, IV Titration 620 Amount Sodium Chloride 0.9% 1, 620 000 ml @ 100 mls/hr IV . Q10H [facility] Rx#:[id number] Other: Voiding Method Toilet # Voids 3 1 - Labs CBC & Chem 7: 03/06/20 07:34 03/06/20 07:34 Labs: Abnormal Lab Results - Last 24 Hours (Table) 03/06/20 03/06/20 Range/Units 07:34 07:34 RBC 3.23 L (3.80-5.40) m/uL Hgb 10.3 L (11.4-16.0) gm/dL Hct 32.9 L (34.0-46.0) % MCV 102.0 H (80.0-100.0) fL AST 412 H (13-35) U/L ALT 187 H (8-44) U/L Alkaline Phosphatase 332 H (41-126) U/L Total Protein 5.0 L (6.2-8.2) g/dL Albumin 3.60 L (3.80-4.90) g/dL Globulin 1.4 L (1.6-3.3) g/dL
[2020-03-06] MEDS: ATORVASTATIN 20 MG TAB PO SCH (20:44)
[2020-03-07] MEDS: SODIUM CHLORIDE 0.9% 1,000 ML IV SCH ×2 (03:29→17:15)
[2020-03-07] MEDS: HYDROcodone/APAP 7.5-325MG 1 EACH TAB PO PRN ×4 (05:31→20:37)
[2020-03-07 06:56] LABS: HCT 30.4 % (34.0-46.0); HGB 9.1 gm/dL (11.4-16.0); Hypochromasia Slight; MCH 30.9 pg (25.0-35.0); MCHC 30.1 g/dL (31.0-37.0); MCV 102.9 fL (80.0-100.0); Macrocytosis Slight; Platelet Count 214 k/uL (150-450); RBC 2.96 m/uL (3.80-5.40); RDW 13.7 % (11.5-15.5); Reticulocyte % 1.4 % (0.5-2.0); WBC 7.1 k/uL (3.8-10.6)
[2020-03-07] MEDS: PANTOPRAZOLE 40 MG/10 ML VIAL IV SCH (07:19)
[2020-03-07] MEDS: LIDOCAINE 5% PATCH TOPICAL SCH (07:20)
[2020-03-07] MEDS: NICOTINE 7MG/24HR PATCH TRANSDERM SCH (07:20)
[2020-03-07] MEDS: polyethylene glycoL 3350 17 GM POWD.PACK PO SCH (07:20)
[2020-03-07] MEDS: METOPROLOL TARTRATE 50 MG TAB PO SCH ×2 (07:21→20:37)
[2020-03-07] MEDS: GABAPENTIN 300 MG CAP PO SCH ×2 (07:21→20:37)
[2020-03-07] MEDS: amLODIPine 10 MG TAB PO SCH (07:21)
[2020-03-07] MEDS: hydrALAZINE HCL 50 MG TAB PO SCH ×3 (07:21→20:37)
--- NOTE | 2020-03-07 09:32 | US ---
EXAMINATION TYPE: US biopsy soft tissue/muscle DATE OF EXAM: 03/06/2020, correlation CT 03/05/2020 HISTORY: Abdominal mass. FINDINGS: Maximal barrier technique was utilized. Hand hygiene achieved with alcohol-based hand rub. The skin overlying a suitable path to the patient's mass in anterior abdominal subcutaneous fat was localized with ultrasound and the overlying skin prepped and draped. Ultrasound was utilized with st erile technique. Lidocaine was used for local anesthesia. A skin teagan was made with a scalpel. An 18-gauge needle was advanced under direct ultrasound guidance and core specimen obtained of the mass. 2 passes were made. Specimen submitted in formalin to Pathology. Following the procedure, hemostas is achieved and the patient is discharged in stable condition without complication. IMPRESSION:STATUS POST ULTRASOUND GUIDED CORE BIOPSY OF abdominal MASS, PATHOLOGY IS PENDING. THIS P ROCEDURE IS PERFORMED BY THE UNDERSIGNED.
[2020-03-07 13:09] LABS: African American GFR (CKD) 62.5 (60.0-200.0); Albumin 3.2 g/dL (3.80-4.90); Albumin/Globulin Ratio 2.46 (1.60-3.17); Anion Gap 6.7 mmol/L (4.00-12.00); Calcium 8.8 mg/dL (8.7-10.3); Carbon Dioxide 22.3 mmol/L (21.6-31.8); Globulin 1.3 g/dL (1.6-3.3); Non-African American GFR(CKD) 53.9 (60.0-200.0); Potassium 4.1 mmol/L (3.5-5.5); Total Bilirubin 0.2 mg/dL (0.3-1.2); Total Protein 4.5 g/dL (6.2-8.2)
--- NOTE | 2020-03-07 14:00 | P.PN ---
Subjective Progress Note Date: 03/07/20 Principal diagnosis: abd mass, pancreatic duct dilation, L1 vertebral lesion Pt seen today s/p core biopsy of the abd mass. She has no new c/o, her back pain is stable, tolerating oral intake, no recent BM but she states she is passing flatus. Objective - Vital Signs Vital signs: Vital Signs Temp 98.9 F 03/07/20 07:00 Pulse 85 03/07/20 07:00 Resp 17 03/07/20 07:00 BP 107/64 03/07/20 07:00 Pulse Ox 90 L 03/07/20 07:00 Intake & Output 03/06/20 03/07/20 03/07/20 18:59 06:59 18:59 Intake Total 800 Balance 800 Intake: Intake, IV Titration 800 Amount Sodium Chloride 0.9% 1, 800 000 ml @ 100 mls/hr IV . Q10H DELICIA Rx#:[id number] Other: Voiding Method Bedside Commode # Voids 1 1 - Constitutional General appearance: Present: cooperative, no acute distress, thin - EENT Eyes: Present: anicteric sclerae, EOMI, poor dentition ENT: Present: hearing grossly normal - Respiratory Respiratory: bilateral: CTA - Cardiovascular Heart sounds: normal: S1, S2 Abnormal Heart Sounds: Absent: systolic murmur, diastolic murmur, rub, S3 Gallop, S4 Gallop, click, other - Peripheral edema leg Peripheral Edema: bilateral: None - Gastrointestinal Gastrointestinal Comment(s): mild tenderness in upper abd, grapefruit sized mass in the RLQ, venous prominence over the mass General gastrointestinal: Present: soft - Neurologic Neurologic: Present: CNII-XII intact - Musculoskeletal Musculoskeletal: Present: generalized weakness, strength equal bilaterally - Psychiatric Psychiatric: Present: A&O x's 3, appropriate affect, intact judgment & insight - Labs CBC & Chem 7: 03/07/20 06:20 03/07/20 06:20 Labs: Abnormal Lab Results - Last 24 Hours (Table) 03/07/20 03/07/20 Range/Units 06:20 06:20 RBC 2.96 L (3.80-5.40) m/uL Hgb 9.1 L (11.4-16.0) gm/dL Hct 30.4 L (34.0-46.0) % MCV 102.9 H (80.0-100.0) fL MCHC 30.1 L (31.0-37.0) g/dL Chloride 110 H (96-109) mmol/L Est GFR (CKD-EPI)NonAf 53.9 L (60.0-200.0) Total Bilirubin 0.2 L (0.3-1.2) mg/dL AST 96 H (13-35) U/L ALT 100 H (8-44) U/L Alkaline Phosphatase 238 H (41-126) U/L Total Protein 4.5 L (6.2-8.2) g/dL Albumin 3.20 L (3.80-4.90) g/dL Globulin 1.3 L (1.6-3.3) g/dL Assessment and Plan (1) Abdominal mass Current Visit: Yes Status: Acute Priority: High Code(s): R19.00 - INTRA- ABD AND PELVIC SWELLING, MASS AND LUMP, UNSP SITE SNOMED Code(s): 510788994 (2) Fracture of L1 vertebra Current Visit: Yes Status: Acute Priority: High Code(s): S32.019A - UNSP FRACTURE OF FIRST LUMBAR VERTEBRA, INIT FOR CLOS FX SNOMED Code(s): 399110200 Plan: IR performed core biopsy of abd mass today, pending pathology. D/W Gastroenterology who are reviewing case re: biliary duct dilation. Orthopedics has seen pt and ordering a bone scan. Macrocytic anemia workup ordered, B12 level normal, still pending some results, no acute intervention for anemia, no transfusion needed D/W IM, pt not felt to be acute so, no urgent need to transfer. Biopsy is pending and results are helpful for referral. Pending GI and Orthopedics findin gs. In the unfortunate case that pt has metastatic malignancy, referral would be for palliative treatment vs curative surgical intervention. We will continue to follow along with you Time with Patient: Greater than 30
--- NOTE | 2020-03-07 14:40 | P.PN ---
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 She is complaining of some lower back pain. She denies any nausea or vomiting. She is passing gas. She is tolerating diet. Patient has a history of a son with sarcoma who had his treatment at [facility]. Patient and daughter would like to go to [facility] for treatment of her possible sarcoma. Patient is afebrile. WBC 7.1 and hemoglobin 9.1. Computed tomography scan lumbar spine osteosclerotic changes in the L1 vertebral body with possible minimal compression fracture. Possible of osseous metastatic disease should be considered. Patient seen by spinal orthopedics they have ordered bone scan. And she is followed by oncology. PHYSICAL EXAM: VITAL SIGNS: Reviewed. GENERAL: Well-developed in no acute distress. HEENT: No sclera icterus. Extraocular movements grossly intact. Moist buccal mucosa. Head is atraumatic, normocephalic. ABDOMEN: Soft. Nondistended. Nontender. NEUROLOGIC: Alert and oriented. Cranial nerves II through XII grossly intact. ASSESSMENT: 1. 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 Mild/moderate extrahepatic and mild pancreatic ductal dilation with elevated LFTs 3. History of CVA 4. History of AICD and pacemaker 5. History of coronary disease and cardiac stents 6. Essential hypertension 7. History of cholecystectomy 8. History of appendectomy PLAN: -Follow-up on core biopsy results -Patient can be discharged and have further workup done outpatient -She would like to follow-up with [facility] physicians for her possible sarcoma -Awaiting GI evaluation for the extrahepatic and pancreatic ductal dilation Physician [employer] note has been reviewed by physician. Signing provider agrees with the documented findings, assessment, and plan of care. Objective - Vital Signs Vital signs: Vital Signs Temp 98.9 F 03/07/20 07:00 Pulse 85 03/07/20 07:00 Resp 17 03/07/20 07:00 BP 107/64 03/07/20 07:00 Pulse Ox 90 L 03/07/20 07:00 Intake & Output 03/06/20 03/07/20 03/07/20 18:59 06:59 18:59 Intake Total 800 Balance 800 Intake: Intake, IV Titration 800 Amount Sodium Chloride 0.9% 1, 800 000 ml @ 100 mls/hr IV . Q10H DELICIA Rx#:[id number] Other: Voiding Method Bedside Commode # Voids 1 1 - Labs CBC & Chem 7: 03/07/20 06:20 03/07/20 06:20 Labs: Abnormal Lab Results - Last 24 Hours (Table) 03/07/20 03/07/20 Range/Units 06:20 06:20 RBC 2.96 L (3.80-5.40) m/uL Hgb 9.1 L (11.4-16.0) gm/dL Hct 30.4 L (34.0-46.0) % MCV 102.9 H (80.0-100.0) fL MCHC 30.1 L (31.0-37.0) g/dL Chloride 110 H (96-109) mmol/L Est GFR (CKD-EPI)NonAf 53.9 L (60.0-200.0) Total Bilirubin 0.2 L (0.3-1.2) mg/dL AST 96 H (13-35) U/L ALT 100 H (8-44) U/L Alkaline Phosphatase 238 H (41-126) U/L Total Protein 4.5 L (6.2-8.2) g/dL Albumin 3.20 L (3.80-4.90) g/dL Globulin 1.3 L (1.6-3.3) g/dL
--- NOTE | 2020-03-07 14:45 | P.CNOR ---
<Cody Hernandez - Last Filed: 03/07/20 14:41> History of Present Illness - [facility] Consult date: 03/07/20 Requesting physician: Jacquie Mercado Consult reason: low back pain, other (L1 vertebral body changes) History of present illness: Patient is a very pleasant 79-year-old female who is seen and examined at [facility] for consultation for low back pain with left lower extremity radiculopathy and changes seen on CT imaging. Patient states regards to her lumbar spine she has had worsening low back pain over the past 3 months without injury. She does have some pain that radiates on the left lateral thigh to the knee. She denies any lower extremity weakness bilaterally. She denies right lower extremity radi culopathy. She states her back pain is most significant at the lumbosacral spine towards the right. She has difficulty with prolonged ambulation and standing. Patient states she does have a history of previous laminectomy. She states her low back pain is exacerbated with coughing, sneezing, bending, twisting. Patient originally presented to the hospital for outpatient ordered CT imaging of the abdomen and pelvis. Patient is known to have a soft tissue mass in her abdomen. CT imaging showed evidence of a bony change at L1. Because of the changes unknown we were also consulted in this regard. Nursing states patient has been diagnosed with a sarcoma. Nursing states patient's son was also diagnosed with sarcoma and treated at the [facility]. There was some discussion about transferring the patient to the [facility] for treatment but they're not currently excepting transfer due to patient volume and this would have to be done in the outpatient setting. [facility] states patient will continue to remain here for treatment and evaluation at [facility]. Patient is currently being seen by multiple medical providers including medicine and oncology. Patient's medical diagnoses include abdominal wall mass, hypertension, dyslipidemia, and irregular heart beat status post AICD/permanent pacer. Patient is unable to have an MRI. 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 History of Any Multi-Drug Resistant Organisms: ESBL Year Discovered:: 01/03/19 MDRO Source:: ESBL URINE Past Surgical History: AICD, Appendectomy, Back Surgery, Cholecystectomy, Heart Catheterization, Pacemaker Additional Past Surgical History / Comment(s): AICD/pacer, low back surgery, R kidney stented, colonoscopies/benign polypectomy, R eye cataract laser surgery, Past Anesthesia/Blood Transfusion Reactions: No Reported Reaction Additional Past Anesthesia/Blood Transfusion Reaction / Comm: Pt states she has received blood before without reaction. Type of Cardiac Device: Permanent Pacemaker, AICD Device Placement Date:: 2015 Past Psychological History: Depression Additional Psychological History / Comment(s): Pt resides with her son but states she will go to her daughters after discharge. She does not drive, her family or friends drive her to [place] or she takes the cab. She is otherwise independent. Smoking Status: Current every day smoker Past Alcohol Use History: None Reported Additional Past Alcohol Use History / Comment(s): Pt started smoking in 1961 and states she has quit on and off over the years. Past Drug Use History: None Reported - Past Family History Father History Unknown: Yes Mother Family Medical History: Cancer Additional Family Medical History / Comment(s): Mother had colon cancer. Sghe at the age of 82 yrs. Medications and Allergies Home Medications Medication Instructions Recorded Confirmed Type RX: Sertraline [Zoloft] 25 mg PO DAILY 03/21/18 03/05/20 History RX: Simvastatin 40 mg PO HS 03/21/18 03/05/20 History RX: allopurinoL [Zyloprim] 100 mg PO BID 03/22/18 03/05/20 History Aspirin EC [Ecotrin Low Dose] 81 mg PO DAILY 03/05/20 03/05/20 History Docusate [Colace] 100 mg PO DAILY PRN 03/05/20 03/05/20 History Gabapentin [Neurontin] 100 mg PO HS 03/05/20 03/05/20 History Metoprolol Tartrate [Lopressor] 50 mg PO BID 03/05/20 03/05/20 History RX: hydrALAZINE HCL [Apresoline] 100 mg PO Q8H 03/05/20 03/05/20 History Simethicone [Gas-X] 125 mg PO DAILY PRN 03/05/20 03/05/20 History Umeclidinium Brm/Vilanterol Tr 1 puff INHALATION RT-DAILY 03/05/20 03/05/20 History [Anoro Ellipta 62.5-25 Mcg INH] amLODIPine [Norvasc] 10 mg PO DAILY 03/05/20 03/05/20 History clonazePAM [KlonoPIN] 0.5 mg PO Q8H 03/05/20 03/05/20 History Allergies Allergy/AdvReac Type Severity Reaction Status Date / Time ibuprofen [From Motrin] Allergy Abdominal Verified 03/05/20 16:25 Pain Sulfa (Sulfonamide Allergy Unknown Verified 03/05/20 16:25 Antibiotics) latex AdvReac Rash/Hives Verified 03/05/20 23:14 Physical Examination Physical exam: Patient is awake, alert, and oriented 3 Vital signs stable Good chest excursion with deep inspiration and expiration Examination of lumbar spine reveals skin is intact with no abrasions, lacerations, or bruises; no erythema, purulence or signs of infection Evidence of lidocaine patches over the mid to lower lumbar spine Pain palpation of the lower lumbar spine at the lumbosacral junction No pain on palpation over the the lower thoracic or upper lumbar spine Dorsiflexion, plantarflexion, and extensor hallucis longus positive sustained bilaterally Lower extremity strength 5/5 bilaterally Patellar reflex 1+ bilaterally and Achilles reflexes 0+ bilaterally No lower extremity hyperreflexia bilaterally Straight leg test negative bilateral lower extremities Negative Lasegue's test bilaterally No signs or symptoms of DVT; no calf pain No pain with internal and external rotation of the hips bilaterally Neurovascularly intact Results Pertinent studies: CT of the abdomen and pelvis with reconstruction for visualization of the lumbar spine performed on 03/06/2020: Osteosclerotic changes in the L1 vertebral body with possible minimal compression fracture in which the possibility of osseous metastatic disease should be considered; L1 changes appear new as compared to previous CT imaging taken on 03/21/2018; L5-S1 degenerative disc disease; overall alignment is adequately maintained; evidence of degenerative changes at L4-5 with apparent spinal canal stenosis; L5 right-sided hemilaminectomy defect - Labs Labs: Abnormal Lab Results - Last 24 Hours (Table) 03/07/20 03/07/20 Range/Units 06:20 06:20 RBC 2.96 L (3.80-5.40) m/uL Hgb 9.1 L (11.4-16.0) gm/dL Hct 30.4 L (34.0-46.0) % MCV 102.9 H (80.0-100.0) fL MCHC 30.1 L (31.0-37.0) g/dL Chloride 110 H (96-109) mmol/L Est GFR (CKD-EPI)NonAf 53.9 L (60.0-200.0) Total Bilirubin 0.2 L (0.3-1.2) mg/dL AST 96 H (13-35) U/L ALT 100 H (8-44) U/L Alkaline Phosphatase 238 H (41-126) U/L Total Protein 4.5 L (6.2-8.2) g/dL Albumin 3.20 L (3.80-4.90) g/dL Globulin 1.3 L (1.6-3.3) g/dL H & H 03/05/20 03/06/20 03/07/20 Range/Units 14:39 07:34 06:20 Hgb 12.3 10.3 L 9.1 L (11.4-16.0) gm/dL Hct 39.0 32.9 L 30.4 L (34.0-46.0) % Result Diagrams: 03/07/20 06:20 03/07/20 06:20 Assessment and Plan Assessment: Assessment: Osteosclerotic changes of the L1 vertebral body Right-sided lumbosacral back pain Left lower extremity radiculopathy History of right-sided laminectomy defect at L5 L5-S1 degenerative disc disease L4-5 spinal canal stenosis Abdominal wall mass; apparent sarcoma Hypertension Dyslipidemia Irregular heartbeat status post AICD/permanent pacer (1) Lumbar back pain with radiculopathy affecting left lower extremity Current Visit: Yes Status: Acute Code(s): M54.16 - RADICULOPATHY, LUMBAR REGION SNOMED Code(s): 149324984 (2) History of laminectomy Current Visit: Yes Status: Acute Code(s): Z98.890 - OTHER SPECIFIED POSTPROCEDURAL STATES SNOMED Code(s): 749883056 (3) Degenerative disc disease at L5-S1 level Current Visit: Yes Status: Acute Code(s): M51.36 - OTHER INTERVERTEBRAL DISC DEGENERATION, LUMBAR REGION SNOMED Code(s): 04214980 (4) Spinal stenosis at L4-L5 level Current Visit: Yes Status: Acute Code(s): M48.061 - SPINAL STENOSIS, LUMBAR REGION WITHOUT NEUROGENIC ILDEFONSO SNOMED Code(s): 17532822 (5) Hypertension Current Visit: Yes Status: Acute Code(s): I10 - ESSENTIAL (PRIMARY) HYPERTENSION SNOMED Code(s): 77806606 (6) Dyslipidemia Current Visit: Yes Status: Acute Code(s): E78.5 - HYPERLIPIDEMIA, UNSPECIFIED SNOMED Code(s): 690318453 (7) Abdominal mass Current Visit: Yes Status: Acute Priority: High Code(s): R19.00 - INTRA- ABD AND PELVIC SWELLING, MASS AND LUMP, UNSP SITE SNOMED Code(s): 869550435 (8) Intractable back pain Current Visit: Yes Status: Acute Code(s): M54.9 - DORSALGIA, UNSPECIFIED SNOMED Code(s): 398502025 (9) AICD (automatic cardioverter/defibrillator) present Current Visit: No Status: Chronic Code(s): Z95.810 - PRESENCE OF AUTOMATIC (IMPLANTABLE) CARDIAC DEFIBRILLATOR SNOMED Code(s): 782267147 Plan: Plan: 1. Patient has been discussed in detail with Dr. Agustin Cruz and we have reviewed her imaging together. Patient does have changes at the L1 vertebral body of unknown origin. It does not appear she has an acute compression fracture deformity at this level. The patient is not experiencing any pain near the L1 vertebral body. She does have pain at lumbosacral pain has been worsening over the past 3 months. She does have known degenerative changes of her lower lumbar spine and lumbosacral spine with a history of previous laminectomy. She does have and abdominal wall mass which nursing states was diagnosed as sarcoma after biopsy. Given the changes of her L1 vertebral body and diagnosed sarcoma, we will plan to obtain a whole body bone scan for further evaluation and to rule out metastatic disease. We are unable to obtain an MRI due to AICD placement. At this time we will plan to follow the patient following the whole-body bone scan to discuss the bone scan results and further treatment options. 2. Patient will continue to be seen and examined by other medical fibers including medicine and oncology. Time with Patient: Greater than 30 (Including obtaining history, physical examination, reviewing of imaging, and dictation.) <Sly Cruz Agustin - Last Filed: 03/07/20 14:48> Physical Examination Osteopathic Statement: *. No significant issues noted on an osteopathic structural exam other than those noted in the History and Physical/Consult. Results - Labs Labs: Abnormal Lab Results - Last 24 Hours (Table) 03/07/20 03/07/20 Range/Units 06:20 06:20 RBC 2.96 L (3.80-5.40) m/uL Hgb 9.1 L (11.4-16.0) gm/dL Hct 30.4 L (34.0-46.0) % MCV 102.9 H (80.0-100.0) fL MCHC 30.1 L (31.0-37.0) g/dL Chloride 110 H (96-109) mmol/L Est GFR (CKD-EPI)NonAf 53.9 L (60.0-200.0) Total Bilirubin 0.2 L (0.3-1.2) mg/dL AST 96 H (13-35) U/L ALT 100 H (8-44) U/L Alkaline Phosphatase 238 H (41-126) U/L Total Protein 4.5 L (6.2-8.2) g/dL Albumin 3.20 L (3.80-4.90) g/dL Globulin 1.3 L (1.6-3.3) g/dL H & H 03/05/20 03/06/20 03/07/20 Range/Units 14:39 07:34 06:20 Hgb 12.3 10.3 L 9.1 L (11.4-16.0) gm/dL Hct 39.0 32.9 L 30.4 L (34.0-46.0) % Result Diagrams: 03/07/20 06:20 03/07/20 06:20 Assessment and Plan Plan: I have been following case and review the chart and images as per stated above. The patient does have some changes of the L1 vertebral body of uncertain origin. It is difficult to determine if there been a prior compression deformity at that level. She's not having any symptoms at the L1 vertebral body. She is currently getting workup for a significant abdominal mass and with these findings I think it is reasonable to get further imaging with the bone scan to determine if L1 has any active bony involvement. We will continue to follow along with you.
[2020-03-07 15:52] VITALS: RESP 18; TEMP 98.1
--- NOTE | 2020-03-07 16:36 | P.PN ---
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 This showed anterior abdominal wall mass extending into the mid pelvic region with soft tissue component, double duct sign with [id number] extrahepatic and mild herpetic no elicitation, abnormal appearance of the L1 vertebral possible Paget's versus healing subacute/chronic fracture, and moderate severe colonic fecal stasis. Her back pain increased as a result of the CT scan adn she presented to the emergency department. Vital signs within normal limits on presentation to the emergency department. Laboratory analysis showed an AST of 41, and urinalysis was unremarkable. Dr. Kinsey had initially sent in order for outpatient CT was contacted and recommended admission to medicine. She was started on IV fluids and pain medications in the emergency department. She was admitted for intractable back pain and abdominal wall mass. On the morning after admission her liver enzymes had elevated. She continued to have some pain. She was seen by oncology who recommended biopsy of the abdominal wall mass, this was completed through interventional radiology. She was seen by GI who recommended MRCP but this could not be completed due to pacer/ACID. Liver enzymes were trended and improved on 03/07 and lipase was normal. GI recommended EUS and surgery recommended [facility] for evaluation of liposarcoma. Mariel contacted and recommended treating back pain as in patient and then outpatient evaluation for pancreas and abdominal wall mass at the sarcoma clinic. She was seen by ortho spine for her back and underwent CT lumbar spine which showed osteosclerosis of the L1 vertebral body with possible 5% compression fracture and cannot rule out metastatic disease. Plan is for whole body bone scan. Daughter reports hx of opiate dependency and misappropriation of medications. General: non toxic, no distress, appears at stated age Derm: warm, dry Head: atraumatic, normocephalic, symmetric Eyes: EOMI, no lid lag, anicteric sclera Mouth: no lip lesion, mucus membranes moist Cardiovascular: S1S2 reg, no murmur, positive posterior tibial pulse bilateral, Lungs: Decreased bs bilateral, no rhonchi, no rales , no accessory muscle use Abdominal: soft, nontender to palpation, no guarding, no appreciable organomegaly Ext: no gross muscle atrophy, no edema, no contractures Neuro: CN II-XI grossly intact, no focal neuro deficits Psych: Alert, oriented, appropriate affect Intractable back pain with L1 abnormality -Orthospine recs whole body scan in AM -[place], unable to take NSAID due to hx of kidney disease -CT abdomen and pelvis and CT lumbar spine reviewed with L1 abnormality -PT/OT evaluation -Gabapentin Abdominal wall mass -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 Walton information on discharge plan tab. Double duct sign with mild to moderate hepatic and mild pancreatic duct dilatation, transaminitis - GI recs: endoscopic US, again [facility] recommended outpatient evaluation, Dr. Torres information added to the chart. - repeat LFTS in AM Moderate constipation -MiraLAX Hypertension, controlled -Norvasc, metoprolol, and hydralazine -Follow blood pressures Dyslipidemia -Resume statin Irregular heartbeat status post AICD/permanent pacer -Not a candidate for MRI DVT prophylaxis: SCDs Discussed with: Patient, nursing, Oncology, GI Anticipated discharge: 1-[address]: home A total of 35 minutes was spent on the care of this complex patient more than 50% of the time was spent in counseling and care coordination. Objective - Vital Signs Vital signs: Vital Signs Temp 98.1 F 03/07/20 15:00 Pulse 74 03/07/20 15:00 Resp 18 03/07/20 15:00 BP 125/67 03/07/20 15:00 Pulse Ox 90 L 03/07/20 15:00 Intake & Output 03/06/20 03/07/20 03/07/20 18:59 06:59 18:59 Intake Total 800 Balance 800 Intake: Intake, IV Titration 800 Amount Sodium Chloride 0.9% 1, 800 000 ml @ 100 mls/hr IV . Q10H [facility] Rx#:[id number] Other: Voiding Method Bedside Commode # Voids 1 1 2 - Labs CBC & Chem 7: 03/07/20 06:20 03/07/20 06:20 Labs: Abnormal Lab Results - Last 24 Hours (Table) 03/07/20 03/07/20 Range/Units 06:20 06:20 RBC 2.96 L (3.80-5.40) m/uL Hgb 9.1 L (11.4-16.0) gm/dL Hct 30.4 L (34.0-46.0) % MCV 102.9 H (80.0-100.0) fL MCHC 30.1 L (31.0-37.0) g/dL Chloride 110 H (96-109) mmol/L Est GFR (CKD-EPI)NonAf 53.9 L (60.0-200.0) Total Bilirubin 0.2 L (0.3-1.2) mg/dL AST 96 H (13-35) U/L ALT 100 H (8-44) U/L Alkaline Phosphatase 238 H (41-126) U/L Total Protein 4.5 L (6.2-8.2) g/dL Albumin 3.20 L (3.80-4.90) g/dL Globulin 1.3 L (1.6-3.3) g/dL
--- NOTE | 2020-03-07 19:07 | P.DS ---
Providers Date of admission: 03/05/20 14:42 Expected date of discharge: 03/07/20 Attending physician: Crystal Euceda MD Consults: 03/05/20 14:42 Consult Physician Stat Consulting Provider: Geraldo Nichols Consult Reason/Comments: abdominal mass Do you want consulting provider notified?: Yes Consult Physician Stat Consulting Provider: Jyoti Duarte Consult Reason/Comments: Abdominal mass Do you want consulting provider notified?: Yes 03/05/20 17:24 Consult Physician Routine Consulting Provider: Skylar San Consult Reason/Comments: Pancreatic duct dilitation Do you want consulting provider notified?: Yes 03/06/20 12:05 Consult Physician Routine Consulting Provider: Sly Cruz Consult Reason/Comments: L1 abnormality with left leg pain Do you want consulting provider notified?: Yes Primary care physician: Jelly Zamorano Hospital Course: Discharge Diagnosis: Intractable back pain with L1 abnormality Abdominal wall mass, Possible benign etiology versus 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 This showed anterior abdominal wall mass extending into the mid pelvic region with soft tissue component, double duct sign with [id number] extrahepatic and mild herpetic no elicitation, abnormal appearance of the L1 vertebral possible Paget's versus healing subacute/chronic fracture, and moderate severe colonic fecal stasis. Her back pain increased as a result of the CT scan and she presented to the emergency department. Vital signs within normal limits on presentation to the emergency department. Laboratory analysis showed an AST of 41, and urinalysis was unremarkable. Dr. Kinsey (surgery) had initially sent in order for outpatient CT was contacted and recommended admission to medicine. She was started on IV fluids and pain medications in the emergency department. She was admitted for intractable back pain and abdominal wall mass. On the morning after admission her liver enzymes had elevated. She continued to have some pain. She was seen by oncology who recommended biopsy of the abdominal wall mass, this was completed through interventional radiology, path currently pending. She was seen by GI who recommended MRCP but this could not be completed due to pacer/ACID. Liver enzymes were trended and improved on 03/07 and lipase was normal. GI recommended EUS and surgery recommended 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 Gerald adams contacted, Dr. Kruger accepted the patient. Patient and family agreeable for transfer. Pathology pending, COVID pending AFP, MARISSA, Anti nitochondrial AB, FOlate, Hep panel, MMA, Serum protein electrophoresis pending for physical exam please seen progress not same date. A total of 45 minutes of time were spent preparing this complex discharge summary . Patient Condition at Discharge: Stable Plan - Discharge Summary Discharge Rx Participant: Yes New Discharge Prescriptions: No Action Sertraline [Zoloft] 25 mg PO DAILY Simvastatin 40 mg PO HS allopurinoL [Zyloprim] 100 mg PO BID Umeclidinium Brm/Vilanterol Tr [Anoro Ellipta 62.5-25 Mcg INH] 1 puff INHALATION RT-DAILY Metoprolol Tartrate [Lopressor] 50 mg PO BID Gabapentin [Neurontin] 100 mg PO HS Docusate [Colace] 100 mg PO DAILY PRN PRN Reason: Constipation Aspirin EC [Ecotrin Low Dose] 81 mg PO DAILY amLODIPine [Norvasc] 10 mg PO DAILY Simethicone [Gas-X] 125 mg PO DAILY PRN PRN Reason: Indigestion clonazePAM [KlonoPIN] 0.5 mg PO Q8H hydrALAZINE HCL [Apresoline] 100 mg PO Q8H Discharge Medication List Sertraline [Zoloft] 25 mg PO DAILY 03/21/18 [History] Simvastatin 40 mg PO HS 03/21/18 [History] allopurinoL [Zyloprim] 100 mg PO BID 03/22/18 [History] Aspirin EC [Ecotrin Low Dose] 81 mg PO DAILY 03/05/20 [History] Docusate [Colace] 100 mg PO DAILY PRN 03/05/20 [History] Gabapentin [Neurontin] 100 mg PO HS 03/05/20 [History] Metoprolol Tartrate [Lopressor] 50 mg PO BID 03/05/20 [History] Simethicone [Gas-X] 125 mg PO DAILY PRN 03/05/20 [History] Umeclidinium Brm/Vilanterol Tr [Anoro Ellipta 62.5-25 Mcg INH] 1 puff INHALATION RT-DAILY 03/05/20 [History] amLODIPine [Norvasc] 10 mg PO DAILY 03/05/20 [History] clonazePAM [KlonoPIN] 0.5 mg PO Q8H 03/05/20 [History] hydrALAZINE HCL [Apresoline] 100 mg PO Q8H 03/05/20 [History] Follow up Appointment(s)/Referral(s): Jelly Zamorano MD [Primary Care Provider] - 1-2 days Activity/Diet/Wound Care/Special Instructions: Activity: [] Diet: [] Wound Care: [] Special Instructions: [facility] referral: [facility]: Dr. Sheridan Walton Address: [address] [place] [address] [facility] [address], [address] [facility] [address] New Patient Gastroenterology Clinic: Mackenzie Torres Address: [facility] [address] [place] [address] [address] [place] [address] Instructions: Please use parking structure P2/P3.
[2020-03-07] MEDS: ATORVASTATIN 20 MG TAB PO SCH (20:37)
[2020-03-07 21:07] VITALS: BP 130/66; PULSE 81
[2020-03-08 00:59] LABS: Hepatitis A Antibody IgM Non-Reactive (Non-Reactive); Hepatitis B Core IgM Non-Reactive (Non-Reactive); Hepatitis B Surface Antigen Non-Reactive (Non-Reactive); Hepatitis C IgG Antibody Non-Reactive (Non-Reactive)
[2020-03-08 02:36] LABS: % Iron Saturation 6.2 (12.00-45.00)
[2020-03-08 03:17] LABS: Alpha Fetoprotein, Tumor Mkr 5.9 ng/mL (0.0-7.9)
--- NOTE | 2020-03-08 07:08 | CONS ---
CONSULTATION DATE OF DICTATION: 03/07/2020 REASON FOR CONSULTATION: Abnormal CT of the abdomen showing double duct sign and elevated LFTs. HISTORY OF PRESENT ILLNESS: The patient is a 79-year-old white female with history of hypertension, hyperlipidemia, was admitted to the hospital for evaluation of the anterior abdominal wall mass that she initially noticed a few months ago. She was seen by Dr. Duarte on outpatient basis and she was subsequently admitted to the hospital for possible core biopsy of the mass. When she was admitted to the hospital, she did have a CT of the abdomen and pelvis done that showed large anterior abdominal wall mass extending into the mid pelvic area as well as double duct sign with [id number] extrahepatic biliary ductal dilation noted. There was some mild dilation of the pancreatic duct also noted. However, at the time of admission to the hospital, serum transaminases were within normal limits. Yesterday, her serum transaminases were slightly elevated, but bilirubin is within normal limits. We are consulting in regards to this time. The patient, however, denies any abdominal pain. She reports no nausea, vomiting. She has lost about 10 pounds in the last few months duration. No prior history of pancreatic pathology. She underwent a core biopsy of the anterior abdominal wall mass yesterday. Pathology is still pending. Oncology is following the patient closely. PAST MEDICAL HISTORY: Significant for CVA in the past, hypertension, hyperlipidemia, deafness, degenerative joint disease, chronic kidney disease. PAST SURGICAL HISTORY: Appendectomy, ICD placement, back surgery, cholecystectomy, cardiac catheterization, bilateral cataract surgery. SOCIAL HISTORY: Chronic smoker. No alcohol use. MEDICATIONS: Medications at home: Zoloft, simvastatin, Zyloprim, aspirin, Colace, Neurontin, Lopressor, Gas-X, Breo Ellipta, Norvasc, Klonopin, Apresoline. ALLERGIES: Allergies to: SULFA, MOTRIN, FAMILY HISTORY: Father unremarkable. Mother had colon cancer. REVIEW OF SYSTEMS: CARDIOPULMONARY: She denies any chest pain or shortness of breath. GENITOURINARY: No dysuria or hematuria. MUSCULOSKELETAL: Unremarkable. SKIN: Unremarkable. ENDOCRINE: Unremarkable. PSYCHIATRIC: Unremarkable. NEUROLOGY: Unremarkable. ENT/VISION: Unremarkable other than hearing impaired. CONSTITUTIONAL: Weight loss of 10 pounds. No fever, chills, night sweats. PHYSICAL EXAMINATION: She appears comfortable, in no apparent distress. Vital signs are stable. Blood pressure is 133/67, pulse rate 74, temperature 98.1. HEENT EXAMINATION: Unremarkable. Conjunctivae pink. Sclerae anicteric. Oral cavity, no lesions. NECK: No JVD or lymph node enlargement. CHEST: Clear to auscultation. HEART: Regular rate and rhythm. ABDOMEN: Soft. There was anterior abdominal wall mass protruding in the lower abdomen more to the suprapubic area measuring at least 5 to 6 cm, slightly tender. Epigastric area nontender. EXTREMITIES: No pedal edema. SKIN: No rashes. NEUROLOGIC: Alert and oriented x3. No focal deficits. LABS: WBC 9.8, hemoglobin 12.3, platelets normal. Basic metabolic panel is within normal limits. BUN and creatinine 22 and 1.04. At the time of admission to the hospital, AST and ALT are 41 and 10 respectively. T-bilirubin and alkaline phosphatase are normal. Yesterday AST went up to 412, ALT 187, alkaline phosphatase 332. Today AST is down to 96, ALT is down to 100, alkaline phosphatase is 238. IMPRESSION: 1. Large anterior abdominal wall mass, status post core biopsy done yesterday. The pathology still pending. Oncology is following the patient closely. 2. Elevated LFTs with normal appearing bilirubin and mild elevation of alkaline phosphatase. CT of the abdomen showed double duct sign, but no obvious pancreatic mass identified. There is evidence of extrahepatic biliary ductal dilation also noted. RECOMMENDATIONS: 1. Await biopsy results from the anterior abdominal wall mass. 2. In regards to the abnormal findings on the recent CT scan that showed a double duct sign with extrahepatic biliary ductal dilation and mild elevation of serum transaminases, she would need this investigated further with endoscopic ultrasound of the pancreas. Discussed with the patient in great length about these investigations and at this time, she can be transferred to a tertiary hospital for further evaluation and management, this was discussed with and we will make arrangements for her to be transferred to the [facility] or [facility]. No plans for ERCP at the present time. Thank you for this consultation. MMODL / IJN: [id number] /
[2020-03-08] MEDS ORDERED: PANTOPRAZOLE 40 MG TABLET PO SCH (07:30)
[2020-03-08 09:44] LABS: Ceruloplasmin 31.8 mg/dL (20.0-60.0)
[2020-03-08 10:02] LABS: Protein, Total 4.7 g/dL (6.2-8.2)
[2020-03-08 11:35] LABS: Liver/Kidney Microsome Antibod 0.8 UNITS (<=20)
[2020-03-08 14:10] LABS: Albumin 2.61 g/dL (3.80-4.90); Gamma Globulin 0.35 g/dL (0.70-1.50)
[2020-03-09 09:00] LABS: Methylmalonic Acid 0.42 umol/L (<0.40)
== END 2020-03-07 23:52 | disposition short-term general hospital (02) | DRG 843 ==
LOC: EC 11:30 → 6NMEDSUR 14:42 → 4SSUR 22:14
PROVIDERS: ADMIT Family Medicine; ATTEND Family Medicine
PROC: 0WBH3ZX Excision of Retroperitoneum, Percutaneous Approach, Diagnostic (ICD-10-PCS; principal; 2020-03-07)
DX: C48.0 Malignant neoplasm of retroperitoneum (principal); K83.1 Obstruction of bile duct; S32.019A Unspecified fracture of first lumbar vertebra, initial encounter for closed fracture; Q78.2 Osteopetrosis; Q60.0 Renal agenesis, unilateral; M48.061 Spinal stenosis, lumbar region without neurogenic claudication; M51.17 Intervertebral disc disorders with radiculopathy, lumbosacral region; D64.9 Anemia, unspecified; E78.5 Hyperlipidemia, unspecified; F17.210 Nicotine dependence, cigarettes, uncomplicated; F32.9 Major depressive disorder, single episode, unspecified; I69.398 Other sequelae of cerebral infarction; H54.61 Unqualified visual loss, right eye, normal vision left eye; H91.93 Unspecified hearing loss, bilateral; J44.9 Chronic obstructive pulmonary disease, unspecified; J32.9 Chronic sinusitis, unspecified; K59.00 Constipation, unspecified; I49.9 Cardiac arrhythmia, unspecified; K86.89 Other specified diseases of pancreas; M10.9 Gout, unspecified; N18.9 Chronic kidney disease, unspecified; R74.0 Nonspecific elevation of levels of transaminase and lactic acid dehydrogenase [LDH]; Z20.828 Contact with and (suspected) exposure to other viral communicable diseases; I12.9 Hypertensive chronic kidney disease with stage 1 through stage 4 chronic kidney disease, or unspecified chronic kidney disease; Z79.02 Long term (current) use of antithrombotics/antiplatelets; Z79.51 Long term (current) use of inhaled steroids; Z79.82 Long term (current) use of aspirin; Z79.899 Other long term (current) drug therapy; Z80.0 Family history of malignant neoplasm of digestive organs; Z90.49 Acquired absence of other specified parts of digestive tract; Z95.5 Presence of coronary angioplasty implant and graft; Z95.810 Presence of automatic (implantable) cardiac defibrillator; Z99.81 Dependence on supplemental oxygen; Z88.2 Allergy status to sulfonamides; Z88.6 Allergy status to analgesic agent; Z91.040 Latex allergy status; M19.90 Unspecified osteoarthritis, unspecified site; Z86.010 Personal history of colon polyps; M19.042 Primary osteoarthritis, left hand; M19.041 Primary osteoarthritis, right hand; Z98.41 Cataract extraction status, right eye
CPT/HCPCS: 20206; 36415; 49180; 72131; 74176; 76942; 80053; 80074; 81001; 82105; 82390; 82607; 82747; 83516; 83540; 83550; 83690; 83921; 84165; 85025; 85027; 85045; 86038; 86376; 88305; 88341; 88342; 96361; 96372; 96374; 96376; 99284

== ENCOUNTER → 2020-03-05 | Outpatient (CLI) | payer MEDICARE ==
--- NOTE | 2020-03-05 12:45 | CT ---
EXAMINATION TYPE: CT abdomen pelvis wo con DATE OF EXAM: 03/05/2020 HISTORY: abdominal wall mass CT DLP: 430 mGycm. Automated Exposure Control for Dose Reduction was Utilized. TECHNIQUE: CT scan of the abdomen and pelvis is performed without oral or IV contrast. COMPARISON: CT abdomen and pelvis March 21, 2018. Ultrasound abdomen complete December 26, 2018. FINDINGS: Within the limitations of a non-contrast study, the following observations are made. LUNG BASES: Peripheral right basilar scarring with slight nodularity remains present and improved fro 2018 study. Multi lead pacemaker/defibrillator leads redemonstrated are partially imaged. There is right coronary stent suspected. LIVER/GB: Gallbladder is noted surgically absent. Prominent tortuous central extrahepatic biliary jud t. Abnormal dilatation seen up to 14.5 cm coronal image 27. There is some tapering but abnormal dilat ation up to 11 mm near duodenal ampulla coronal image 40. PANCREAS: Double duct sign with mild dilatation of the pancreatic duct in the head up to 4 to 5 mm co zulay image 38. No obvious ampullary mass. Follow-up advised. SPLEEN: No significant abnormality is seen. ADRENALS: Mild thickening to left adrenal gland favoring hyperplasia unchanged from prior. KIDNEYS: Few small calculi throughout the left kidney. Scattered thin-walled cysts redemonstrated inc luding dominant 2.1 cm lesion posterior upper pole axial image 27. More numerous thin-walled cysts sc attered throughout the smaller right kidney with cortical volume loss. BOWEL: New moderate size hiatal hernia. No suspicious small or large bowel dilatation. Moderate to se jaylyn prominence of fecal material throughout majority of colon. GENITAL ORGANS: Uterus surgically absent or markedly atrophic. Scattered pelvic phleboliths. LYMPH NODES: No greater than 1cm abdominal or pelvic lymph nodes are appreciated. OSSEOUS STRUCTURES: Moderate disc space narrowing lumbosacral junction with vacuum disc phenomenon re demonstrated . Mild trabeculation and slightly suspicious sclerosis L1 vertebra on the current study. OTHER: Abnormal mass in the anterior abdominal wall begins below umbilicus extending to right of midl ine seen on coronal image 16 has fat and soft tissue density with areas of nodular soft tissue compon ent. Margin is seen better on coronal image 16. It measures roughly 8.3 cm transversely by 5.5 cm AP diameter axial image 89. Craniocaudal length 10.0 cm coronal image 16. No rectal sheath break or melquiades ia defect. Moderate to severe calcified plaque in ectatic abdominal aorta extending into branch vessels. Moderat e axial joint space loss in both hips. IMPRESSION: 1. Confirmation of lower anterior abdominal wall mass extending to mid pelvic level has sat and soft tissue component, while could be benign in etiology, a low-grade liposarcoma cannot be excluded and c omplete surgical excision is likely warranted. 2. Double duct sign with mild/moderate extrahepatic and mild pancreatic ductal dilatation or prominen t from prior studies. Follow-up advised to rule out ampullary mass or neoplasm. 3. Abnormal appearance to L1 vertebra, possible Paget's disease, sclerotic metastatic disease in diff erential. Healing subacute/chronic fracture also in differential. Clinical correlation and follow-up advised. 4. Moderate to severe colonic fecal stasis. No overall bowel obstruction. Correlate clinically.
== END | disposition home or self-care (01) ==
LOC: RADCTMAIN 09:46
PROVIDERS: ATTEND Surgery Plastic and Reconstructive Surgery
DX: R19.09 Other intra-abdominal and pelvic swelling, mass and lump (principal); K59.8 Other specified functional intestinal disorders
CPT/HCPCS: 74176